=== PATIENT | male | born 1960 | race Caucasian/White ===

== ENCOUNTER → 2019-02-11 | Outpatient (CLI) | payer BC ==
--- NOTE | 2019-02-11 17:21 | MR ---
EXAMINATION TYPE: MR lumbar spine wo con DATE OF EXAM: 02/11/2019 COMPARISON: None HISTORY: LBP, rt leg numbness x 1 mo, no trauma CONTRAST: 0 mL intravenous Gadavist. TECHNIQUE: Multiplanar, multisequence images of the lumbar spine were acquired. FINDINGS: There is mild narrowing of the L2-3 through L4-5 discs heights. Disc hydration levels are diminished. L5-S1: No significant disc bulge or disc herniation. No spinal canal stenosis. No foraminal stenosi s. L4-L5: Minimal disc bulge with anterior thecal sac flattening. No AP spinal canal stenosis present. N eural foramen are patent. No spinal canal stenosis. L3-L4: Mild subligamentous disc herniation may be present. This has mild anterior thecal sac flatteni ng. No AP spinal canal stenosis is present. Mild facet hypertrophy is present. Neural foramen are pat ent. L2-L3: Minimal disc bulge may be present. There is mild facet hypertrophy with ligamentum flavum laxi ty which has posterior lateral thecal sac compression. No spinal canal stenosis or neural foraminal s tenosis is evident. L1-L2: No significant disc bulge or disc herniation. No spinal canal stenosis. No foraminal stenosi s. T12-L1: No significant disc bulge or disc herniation. No spinal canal stenosis. No foraminal stenos is. IMPRESSION: 1. Mild disc bulging present L2-3 through L4-5 with mild anterior thecal sac contact and flattening. No spinal canal stenosis is present. 2. Mild degenerative disc changes L2-3 through L4-5 mild disc desiccation.
== END | disposition home or self-care (01) ==
LOC: RADMRIMAIN 11:39
PROVIDERS: ATTEND Orthopaedic Surgery
DX: M51.26 Other intervertebral disc displacement, lumbar region (principal); M47.816 Spondylosis without myelopathy or radiculopathy, lumbar region
CPT/HCPCS: 72148

== ENCOUNTER → 2019-02-20 | Outpatient (CLI) | payer BC ==
[2019-02-20 11:38] VITALS: BP 137/89; PULSE 66; RESP 16
--- NOTE | 2019-02-20 11:50 | P.PAINCN ---
History of Present Illness - Reason for Consult Consult date: 02/20/19 Requesting physician: Venkata Obrien - History of Present Illness Her bicycle is a relatively healthy 58-year-old who presents her clinic as a referral from Dr. Obrien, for right low back pain radiating down his leg to his right foot. He states that this pain began 2 months ago, without any initiating event, he woke up and he had this pain, the pain is worsening since then. The pain starts in the right low buttock radiating down across the knee to the top of the right foot. He does have numbness on the bottom of the right foot. He denies any weakness or bowel or bladder dysfunction. When he had the pain he went and saw his regular physician Dr. Haines, who is prescribing [place] for him. Dr. Haines did try an IM steroid injection, which is not help his pain. He was then referred to Dr. Obrien, who also attempted a steroid injection, which did not help his pain. Because of this significant debility this pain is causing him, including lack of sleep and decrease appetite, he was referred to our clinic. He is looking for interventions, that could potentially help his pain. His only pain procedures were steroid injections. He has not had any pain related surgeries. He is currently working as a industrial truck mechanic. He denies any drug use, he denies any history of emotional or physical trauma. Past Medical History History of Any Multi-Drug Resistant Organisms: None Reported Smoking Status: Current every day smoker Past Alcohol Use History: None Reported Medications and Allergies Home Medications Medication Instructions Recorded Confirmed Type Atorvastatin [Lipitor] 1 tab PO HS 02/20/19 02/20/19 History HYDROcodone/APAP 5-325MG [[place] 1 tab PO Q6HR PRN 02/20/19 02/20/19 History 5-325] Allergies Allergy/AdvReac Type Severity Reaction Status Date / Time No Known Allergies Allergy Verified 02/20/19 11:16 Physical Exam Vitals: Vital Signs Pulse Resp BP Pulse Ox 02/20/19 11:24 66 16 137/89 96 Intake and Output 02/19/19 02/20/19 02/20/19 22:59 06:59 14:59 Other: Weight 68.946 kg Vital Signs: Reviewed in EMR GENERAL: Well appearing, in no acute distress, PSYCH: Mood and affect is appropriate. Awake, alert, and oriented SKIN: Skin color, texture, turgor normal, no rashes or lesions HEENT: Normocephalic, atraumatic. EOM intact CV: No pedal edema RESP: Respirations are unlabored, no audible wheezing GI: Abdomen non-distended MUSCULOSKELETAL: Bilateral upper and lower extremity strength is normal and symmetric. No atrophy or tone abnormalities are noted. Lumbar spine: Lumbar paraspinal muscles were not tender. Straight leg test was positive for leg pain. Buttocks: He did have positive for finger sign. Araceli's, Gaenslen's, Taty tests were positive, this causes pain from the right buttock down to the knee, did not cause any pain below the knee. Extremities: Peripheral joint ROM is full and pain free without obvious instability or laxity in all four extremities. No edema or skin discolorations noted. Gait: Gait is anantalgic NEUR: No loss of sensation is noted. Cranial nerves are grossly intact. Results Results: His lumbar MRI was reviewed, which is in her chart. It was relatively unremarkable fall, he does have mild disc bulge at L3-L4 and L4-L5. However there is no significant spinal canal stenosis or neuroforaminal stenosis. Please see chart for full report. Assessment and Plan Assessment: Assessment: 1. Possible lumbar radicular pain, especially in the light of pain radiating down his leg all the way to his foot 2. Right SI joint dysfunction Plan: 1. Explanation: I explained to him that his lumbar MRI was relatively benign, would be consistent for somebody his age. However her symptoms his symptoms does fit the picture of lumbar radicular pain. I also explained to him, part of his pain may be coming from the SI joint, especially with the positive provocative maneuvers. 2. Opioid agreement: None 3. Counseling: The patient was encouraged to stay active 4. Procedures: L4-L5 right paramedian epidural steroid injection, if this is not help would consider right SI joint injection 5. Consultations: None 6. Investigations: By MRI reviewed 7. Medications: He is written for [place] by his primary care physician which is not helping his pain I did discuss gabapentin with the patient, however as he is a industrial truck mechanic I would try modalities which would not make him sedated prior to starting him on gabapentin. 8. Disposition: For his procedure , PQRS Measure Charge Sheet Measure #226: Tobacco Use: Screen & Cessation Intervention: Pt screened for tobacco use AND intervention given Measure #111: Pneumonia Vaccination: Pneumococcal vaccine NOT administered or previously given Measure #47: Advance Care Plan: Advance care planning discussed & documented, pt chose/unable to give Measure #131: Pain Assessment & Follow-up: Pain positive & plan documented, Follow-up scheduled Measure #431: Unhealthy Alcohol Use Preventative Care & Scrn: Patient not identified as an unhealthy alcohol user PQRS Narrative: Smoking Status Current every day smoker Blood Pressure 137/89 Pain Intensity [Right Lateral 10 Leg] Scale Used Numeric (1 - 10) Hx Alcohol Use (MH) No Home Medications: Ambulatory Orders Atorvastatin [Lipitor] 1 tab PO HS 02/20/19 HYDROcodone/APAP 5-325MG [[place] 5-325] 1 tab PO Q6HR PRN 02/20/19
== END | disposition home or self-care (01) ==
LOC: PNWHC3 10:44
PROVIDERS: ATTEND Student in an Organized Health Care Education/Training Program
DX: M53.3 Sacrococcygeal disorders, not elsewhere classified (principal); F17.200 Nicotine dependence, unspecified, uncomplicated; R20.0 Anesthesia of skin; Z79.899 Other long term (current) drug therapy
CPT/HCPCS: 99211

== ENCOUNTER 2019-03-05 05:59 | Day surgery (SDC) | payer BC ==
[2019-03-03 12:06] VITALS: BMI 26.6
[~2019-03-05 05:59] MED LIST: LACTATED RINGERS 1,000 ML IV SCH
[2019-03-05 06:17] VITALS: RESP 18; TEMP 97.8
[2019-03-05] MEDS ORDERED: LACTATED RINGERS 1,000 ML IV ONE (06:23)
[2019-03-05] MEDS ORDERED: LIDOCAINE 1% 20 ML VIAL (10MG/ML) FOR IV START INTRADERMA ONE (06:23)
--- NOTE | 2019-03-05 07:14 | P.PCN ---
Date of Procedure: 03/05/19 Procedure(s) Performed: PREOPERATIVE DIAGNOSIS: 1- Lumbar radiculopathy 2-right sacroiliitis POSTOPERATIVE DIAGNOSIS: 1-Lumber radiculopathy 2-right sacroiliitis PROCEDURE 1. Lumbar epidural steroid injection under fluoroscopic guidance at the L5-S1 level. (Right Paramedian ) (Fluoroscopy imaging was available in radiology department) 2. Lumbar epidurogram. ANESTHESIA: Local with 1% lidocaine 3 ml and , moderate sedation with intravenous Versed 2 mg ,and fentanyle 50 Mcg EBL: Minimal PROCEDURE INDICATION: The patient with low back pain and radiculitis symptoms unresponsive to conservative treatment. Fluoroscopy was used to optimize visualization of the needle placement and to maximize safety. PROCEDURE DESCRIPTION / TECHNIQUE: The patient was seen and identified in the preoperative area. Risks, benefits, complications including but not limited to infections ,bleeding ,allergic reaction to the medications ,nerve damage and not complete pain releife , and alternatives were discussed with the patient. The patient agreed to proceed with the procedure and signed the consent. IV was started, and vital signs were stable. Patient was taken to the OR and time out was completed. The patient was placed in the prone position on procedure table and a pillow was placed under the abdomen to reduce lumbar lordosis. The lumbosacral area was prepped and draped in the usual sterile fashion.ere closely monitored during the procedure. Conscious sedation was used during the procedure to decrease patients anxiety. Vital signs was monitered during the entire procedure. Using anterior-posterior fluoroscopy, the L5-S1 interlaminar space was identified and the skin over this site was marked and then infiltrated with 1% lidocaine subcutaneously. Subsequently, a 20-gauge Tuohy epidural needle was inserted and advanced toward the epidural space using the ``Loss of resistance technique and guided by AP and lateral fluoroscopy. The correct needle position in the epidural space was verified with the injection of 2 mL of the water soluble contrast dye Isovue 200 contrast and observing an excellent epidurogram with the epidural spread of the dye, after negative aspiration for blood and CSF and in the absence of paresthesias. Again after negative aspiration, a 6 ml mixture containing 80 mg of Depo-medrol , and 2 ml of preservative free Normal Saline, and 2 ml of preservative free lidocaine 1% solution was injected and a washout of epidurogram was seen. Needle was withdrawn intact, skin was cleansed, and bandages were applied. COMPLICATIONS: None DISPOSITION / PLANS: The patient was placed in a supine position and transferred to the recovery area in a stable condition for observation. There was no evidence of lower extremity motor or sensory deficit after the procedure. Patient was discharged from the recovery room after meeting discharge criteria. Home discharge instructions were given to the patient by the staff. The patient was reexamined prior to discharge. The patient will schedule a follow up in the clinic in 2-4 weeks. Note= the plan was to do L4- 5 lumbar epidural steroid injection but the L4 5 level was technically difficult Doxycin significantly too long spinous process.
[2019-03-05] MEDS ORDERED: IV FLUID CONTINUATION 750 ML IV ONE (07:16)
[2019-03-05 07:35] VITALS: BP 117/79; PULSE 68
--- NOTE | 2019-03-05 13:14 | FL ---
Fluoroscopy HISTORY: Pain 1 seconds fluoroscopy time supplied to the referring clinician. 1 intraoperative C-arm images docume nt the procedure. See dictated report from anesthesia.
== END 2019-03-05 07:46 | disposition home or self-care (01) ==
LOC: ORPAIN 05:59
PROVIDERS: ATTEND Specialist
DX: M54.16 Radiculopathy, lumbar region (principal); M46.1 Sacroiliitis, not elsewhere classified
CPT/HCPCS: 62323; J2250; J1030; J3010

== ENCOUNTER 2019-03-19 09:46 | Day surgery (SDC) | payer BC ==
[2019-03-18 09:09] VITALS: BMI 24.3
[2019-03-19 10:14] VITALS: TEMP 97.3
[2019-03-19] MEDS ORDERED: LIDOCAINE 1% 20 ML VIAL (10MG/ML) FOR IV START INTRADERMA ONE (10:16)
--- NOTE | 2019-03-19 11:14 | P.PCN ---
Date of Procedure: 03/19/19 Procedure(s) Performed: PREOPERATIVE DIAGNOSIS: Lumbar radicular pain POSTOPERATIVE DIAGNOSIS: Same PROCEDURE Lumbar epidural steroid injection under fluoroscopic guidance at the L4-L5 level. ANESTHESIA: Local with 1% lidocaine 3 ml; moderate sedation with 2 mg of Versed and 50 g of fentanyl EBL: Minimal PROCEDURE INDICATION: By radicular pain. PROCEDURE DESCRIPTION / TECHNIQUE: The patient was seen and identified in the preoperative area. Risks, benefits, complications including but not limited to infections ,bleeding ,allergic reaction to the medications ,nerve damage and not complete pain relief , and alternatives were discussed with the patient. The patient agreed to proceed with the procedure and signed the consent. IV was started, and vital signs were stable. Patient was taken to the OR and time out was completed. The patient was placed in the prone position on procedure table and a pillow was placed under the abdomen to reduce lumbar lordosis. The lumbosacral area was prepped and draped in the usual sterile fashion. The patient was closely monitored during the procedure. Conscious sedation was used during the procedure to decrease patients anxiety. Vital signs was monitored during the entire procedure. Using anterior-posterior fluoroscopy, the L4-L5 interlaminar space was identified and the skin over this site was marked and then infiltrated with 1% lidocaine subcutaneously. Subsequently, a 20-gauge Tuohy epidural needle was inserted and advanced toward the epidural space using the loss of resistance technique and guided by AP and lateral fluoroscopy. The correct needle position in the epidural space was verified. After negative aspiration, a 5 mL solution containing 80 mg of Depo-Medrol, 2 ml of 1% lidocaine preservative-free, 2 mL of normal saline preservative-free was injected. The needle was withdrawn intact, skin was cleansed, and bandages were applied. Images were saved to the chart. COMPLICATIONS: None COMMENTS: L4-L5 space was difficult to access likely due to calcification of ligamentum flavum DISPOSITION / PLANS: The patient was returned to the supine position and transferred to the recovery area in a stable condition for observation. There was no evidence of lower extremity motor or sensory deficit after the procedure. Patient was discharged from the recovery room after meeting discharge criteria. Home discharge instructions were given to the patient by the staff. Follow up plan: In clinic
[2019-03-19] MEDS ORDERED: IV FLUID CONTINUATION 1,000 ML IV ONE ×2 (11:21)
[2019-03-19 11:25] VITALS: RESP 16
[2019-03-19 11:41] VITALS: BP 114/76; PULSE 57
--- NOTE | 2019-03-19 13:00 | FL ---
Fluoroscopy HISTORY: Pain 5 seconds fluoroscopy time supplied to the referring clinician. 3 intraoperative C-arm images docume nt the procedure. See dictated report from anesthesia.
== END 2019-03-19 11:51 | disposition home or self-care (01) ==
LOC: ORPAIN 09:46
PROVIDERS: ATTEND Student in an Organized Health Care Education/Training Program
DX: M51.16 Intervertebral disc disorders with radiculopathy, lumbar region (principal); F17.200 Nicotine dependence, unspecified, uncomplicated; Z79.899 Other long term (current) drug therapy
CPT/HCPCS: 62323; J2250; J1030; J3010; Q9966

== ENCOUNTER → 2019-04-08 | Outpatient (CLI) | payer BC ==
[2019-04-08 11:35] VITALS: BP 118/77; PULSE 69; RESP 18
--- NOTE | 2019-04-09 14:08 | P.PAINPG ---
Subjective Progress Note Date: 04/08/19 This is a follow-up visit for this 58 years old male with a few month history of severe low back pain with radiation to the lower extremity, patient diagnosed with lumbar radiculitis and lumbar degenerative disc disease and lumbar spondylosis with lumbar facet arthropathy, status post lumbar epidural steroid injection x2 he had minimal benefit from the epidural steroid injection, his pain mainly in the low back area with occasional radiation to the right leg, he denies any motor or sensory deficit he denies any fever or night sweats, and no change in the bowel movement or urination Objective - Vital Signs Vital signs: Vital Signs Temp Pulse 69 04/08/19 11:24 Resp 18 04/08/19 11:24 BP 118/77 04/08/19 11:24 Pulse Ox 97 04/08/19 11:24 - Exam Physical Examinations : -Constitutiona : Cooperative , not in acute distress . -HEENT : nech : supple , no Lymphadenopathy , normal thyroid size . : eyes : no ptosis , no icterus, no photophobia . - neurologic : Cranial nerve II to XII intact , no focal neurological deffecit . -psychatric : alert , oriented X 3 , appropriate affect , intact judgment and insight . -Lymphatic : no Lymphadenopathy . - musculoskeltal : Lumber spine moter stegnth lower extremities ,thigh and legs 3-4/5 Right side , 5/5 Left side deep tendon reflexes : normal Knee Jerk , normal ankle Jerk lumber facet Loading Test =positive Right , positive Left Range of motion of the lumbar spine Flexion 30 degrees, extension 10 degrees strait leg raising test = positive at 60 degree on the right side and is negative on the left side Fabere test= positive Right , and negative LT . NO tenderness over the Sacroiliac joint on the Right , and no tendernes on Left sides MRI of the lumbar spine L2-3 and C4 facet hypertrophy and L4 5 bulging disc, normal disc at L5-S1 Assessment and Plan Plan: Assessment and plan= lumbar radiculopathy, lumbar degenerative disc disease, lum bar spondylosis with lumbar facet arthropathy Patient had no benefit from lumbar epidural steroid injections 2 Patient could benefit from diagnostic medial branch block , and she has good result and we will proceed with the RFA He will be scheduled to have diagnostic medial branch block lumbar area L1,L2 ,L3, L4 (to block facet at L2-3,L3-4,L4-5 ) Time with Patient: Less than 30 PQRS Measure Charge Sheet Measure #130: Documentation of Current Meds in Medical Chart: Patient's medications documented in chart Measure #226: Tobacco Use: Screen & Cessation Intervention: Pt screened for tobacco use AND intervention given Measure #111: Pneumonia Vaccination: Pneumococcal vaccine NOT administered or previously given Measure #47: Advance Care Plan: Advance care planning discussed & documented, pt chose/unable to give Measure #412: Opioid Treatment Agreement: No documentation of signed opioid treatment agreement Measure #408: Opioid Therapy Follow-up Evaluation: Patient had NO f/u eval minimum every 3 months during opioid therapy Measure #317: Preventitive Care & Scrn High Bld Press & F/U: Normal blood pressure, f/u not required Measure #128: Body Mass Index (BMI) Screening & Follow-up: BMI documented within normal parameters Measure #131: Pain Assessment & Follow-up: Pain positive & plan documented, Follow-up scheduled Measure #431: Unhealthy Alcohol Use Preventative Care & Scrn: Patient not identified as an unhealthy alcohol user PQRS Narrative: Smoking Status Current every day smoker Blood Pressure 118/77 Pain Intensity [Right Leg] 9 Pain Intensity [Lower Back] 9 Scale Used Numeric (1 - 10) Hx Alcohol Use (MH) No Home Medications: Ambulatory Orders Atorvastatin [Lipitor] 80 mg PO HS 02/20/19 Aspirin/Acetaminophen/Caffeine [Excedrin Extra Strength Caplet] 3 each PO DIRECTED PRN 04/03/19 Hydrocodone/Acetaminophen [Hydrocodone-Acetamin 5-300 mg] 1 tab PO Q4HR PRN 04/08/19 Controlled Substance Measures - Controlled Substance Measures Is patient prescribed a controlled substance at discharge?: No
== END | disposition home or self-care (01) ==
LOC: PNWHC3 11:01
PROVIDERS: ATTEND Specialist
DX: M51.16 Intervertebral disc disorders with radiculopathy, lumbar region (principal); M47.26 Other spondylosis with radiculopathy, lumbar region; M46.96 Unspecified inflammatory spondylopathy, lumbar region; F17.200 Nicotine dependence, unspecified, uncomplicated; Z79.82 Long term (current) use of aspirin; Z79.891 Long term (current) use of opiate analgesic; Z79.899 Other long term (current) drug therapy
CPT/HCPCS: 99211

== ENCOUNTER 2019-04-23 05:58 | Day surgery (SDC) | payer BC ==
[2019-04-22 09:59] VITALS: BMI 27.4
[2019-04-23] MEDS ORDERED: LIDOCAINE 1% 20 ML VIAL (10MG/ML) FOR IV START INTRADERMA ONE (06:20)
[2019-04-23 06:42] VITALS: TEMP 97.8
--- NOTE | 2019-04-23 07:21 | P.PCN ---
Date of Procedure: 04/23/19 Procedure(s) Performed: PREOPERATIVE DIAGNOSIS : 1- Lumbar spondylosis with Facet Arthropathy without myelopathy . 2- Lumber degenerative disc disease POSTOPERATIVE DIAGNOSIS: 1- Lumbar spondylosis with Facet Arthropathy without myelopathy . 2- Lumber degenerative disc disease PROCEDURE: Diagnostic bilateral L1 ,L2 , L3 , L4 , medial branch block under fluoroscopy guidance(fluoroscopy images available in the radiology Department ) ( To target the facet joint between L2-3 , L3-4 ,L4-5 , ) ANESTHESIA: Local with Ropivacain 0.5 % 6 ml , moderate sedation with intravenous Versed 2 mg and Fentanyl 50 mcg. EBL: Minimal COMPLICATION: None. IV FLUIDS: 100 mL of normal saline. PROCEDURE INDICATION: Chronic low back pain secondary to Facet arthropathy unresponsive to conservative treatment. PROCEDURE DESCRIPTION: the patient was seen and identified in the preop holding area , risks and benefits and possible complications of the procedure and alternative were discussed with the patient, and the patient agreed to proceed with the procedure and signed the consent IV was started and vital signs monitored during the procedure and fluoroscopy was used to maximize the benefit and accuracy of the needle placement, and sedation was given to decrease patient anxiety, patient was taken to the procedure room and placed in prone position vital signs monitored in the back prepped with chlorhexidine X3 then under strict sterile technique using a right oblique fluoroscopy ,the junction of the transverse process and the superior articulating process of the right L1 ,L2 ,L3 , L4 , vertebra which corresponding to the fluoroscopy image of the eye of the Zach dog on the block side for the medial branches and subsequently , after local infiltration of skin and subcu tissuies with Ropivacaine 0.5 % , one mL at each level ,then 22-gauge Quincke-type needles , 4 needle was used , each one of them placed at the junction of the base of the transverse process and the superior articular process at the appropriate level, and the needle was advanced until the periosteum contacted, needle placement confirmed with AP oblique and lateral view and after appropriate needle placement confirmed, and after negative aspiration for heme and CSF and there was no paresthesia 2 mL of Ropivacaine 0.5% mixed with 20 mg Depo-Medrol , then half mL injected at each level after negative aspiration the needle subsequently removed and the same procedure repeated for the left side at left side at L1, L2 , L3 , L4 levels. At the end of the procedure and the needles removed and a bandage applied after the skin was cleaned the cleaning solution patient taken to recovery room in stable condition and monitors in the recovery room for 20-30 minutes and discharged home in stable condition after discharge criteria met and patient will follow up with the pain clinic in 2-4 weeks
[2019-04-23] MEDS ORDERED: IV FLUID CONTINUATION 1,000 ML IV ONE ×2 (07:23)
[2019-04-23 07:46] VITALS: BP 112/80; PULSE 61; RESP 18
--- NOTE | 2019-04-23 08:57 | FL ---
EXAMINATION TYPE: FL guided pain mgmt statistic DATE OF EXAM: 04/23/2019 CLINICAL HISTORY: Low back pain. TECHNIQUE: Fluoroscopy. COMPARISON: None. FINDINGS: Fluoroscopic guidance was provided during pain relief procedure performed by Dr. Henning . A total of 12 seconds of fluoroscopic time was utilized during the procedure and 4 spot images are acquired. Images acquired shows needle localization of the lumbar spine at multiple levels. IMPRESSION: As Above.
== END 2019-04-23 07:53 | disposition home or self-care (01) ==
LOC: ORPAIN 05:58
PROVIDERS: ATTEND Specialist
DX: G89.29 Other chronic pain (principal); M47.26 Other spondylosis with radiculopathy, lumbar region; M51.16 Intervertebral disc disorders with radiculopathy, lumbar region
CPT/HCPCS: 64493; 64494; 64495; J2250; J1030; J3010; 99152

== ENCOUNTER → 2021-04-05 | Outpatient (CLI) | payer BC ==
--- NOTE | 2021-04-05 08:52 | MR ---
MRI CERVICAL SPINE: CLINICAL HISTORY: Nerve injury with neck pain. TECHNIQUE: Multiplanar, multisequence imaging of the cervical spine is performed without IV contrast. COMPARISON: None. FINDINGS: Sagittal images of the cervical spine show the craniocervical junction to appear within nor mal limits. The cervical and upper thoracic spinal cord is normal in caliber and signal. Slight or s ubtle grade 1 retrolisthesis C6 on C7. Mild disc space narrowing C5-C6 level. Moderate disc space chicho rowing C6-C7 level. [id number]-gu-eavjnxup spurring at these levels. The vertebral body heights are normal. The bone marrow signal intensity is within normal limits. Axial images show C2-C3 level to appear within normal limits. Axial images at C3-C4 level show mild facet degenerative changes bilaterally causing mild bilateral n eural foraminal narrowing. Axial images at C4-C5 levels are broad-based posterior disc protrusion mildly facing anterior thecal sac and causing mild bilateral neural foraminal narrowing. Axial images at C5-C6 level show more prominent focal central disc protrusion effacing anterior theca l sac up to ventral cervical spinal cord with mild bilateral neural foraminal narrowing. Axial images at C6-C7 level show spondylolisthesis with posterior spur disc complex effacing anterior thecal sac and causing moderate bilateral neural foraminal narrowing. Axial images at C7-T1 level appear within normal limits IMPRESSION: Multilevel degenerative changes in the cervical spine greatest at C5-C6 and C6-C7 levels as detailed above.
== END | disposition home or self-care (01) ==
LOC: RADMRIMAIN 08:08
PROVIDERS: ATTEND Psychiatry & Neurology Neurology
DX: S14.9XXA Injury of unspecified nerves of neck, initial encounter (principal); M50.222 Other cervical disc displacement at C5-C6 level; M47.812 Spondylosis without myelopathy or radiculopathy, cervical region; M43.12 Spondylolisthesis, cervical region
CPT/HCPCS: 72141

== ENCOUNTER → 2022-05-08 | Outpatient (CLI) | payer BC ==
--- NOTE | 2022-05-08 17:49 | CT ---
EXAMINATION TYPE: CT brain wo con CT DLP: 1141.9 mGycm, Automated exposure control for dose reduction was used. DATE OF EXAM: 05/08/2022 5:09 PM COMPARISON: 01/01/2022., MR brain 01/02/2022. CLINICAL INDICATION:Male, 61 years old with history of R51.9, Headaches for about a month TECHNIQUE: Brain: Axial CT images of the brain were obtained with coronal and sagittal reformats created and rev iewed. Contrast used: None. Oral contrast used: None. FINDINGS: Brain: Extra-axial spaces: No abnormal extra-axial fluid collections. Ventricular system: Within normal limits Cerebral parenchyma: Remote left cutler radiata white matter changes as seen on prior MRI. No acute i ntraparenchymal hemorrhage or mass effect. The smallwood-white junction is well differentiated. Scattered hypoattenuating areas are seen within the white matter. Cerebellum: Unremarkable. Mass effect: No evidence of midline shift. Intracranial vasculature: Atherosclerotic calcifications of the intracranial vessels. Soft tissues: Normal. Calvarium/osseous structures: No depressed skull fracture. Paranasal sinuses and mastoid air cells: Mild scattered paranasal sinus disease. Visualized orbits: Orbital contents are intact. IMPRESSION: 1. Remote injury to the left cutler radiata as seen on prior MRI. No acute/subacute CVA identified. 2. Nonspecific white matter changes, likely secondary to chronic small vessel ischemic disease.
== END | disposition home or self-care (01) ==
LOC: RADCTMAIN 16:50
PROVIDERS: ATTEND Family Medicine
DX: R90.82 White matter disease, unspecified (principal); I67.82 Cerebral ischemia; R51.9 Headache, unspecified
CPT/HCPCS: 70450

== ENCOUNTER → 2022-08-07 | Outpatient (CLI) | payer OTHER ==
[2022-08-07 20:49] LABS: ALT 29 U/L (10-49); AST 30 U/L (14-35); Chol/HDL Ratio 5.49 Ratio; LDL Cholesterol,Calculated 147.5 mg/dL (0.0-131.0)
== END | disposition home or self-care (01) ==
LOC: LABWHC1 09:34
PROVIDERS: ATTEND Nurse Practitioner Acute Care
DX: E78.2 Mixed hyperlipidemia (principal)
CPT/HCPCS: 36415; 80061; 84450; 84460

== ENCOUNTER → 2022-10-25 | Day surgery (SDC) | payer OTHER ==
[~2022-10-25] MED LIST changes: +ALPRAZolam 0.25 MG TAB PO PRN; +ALPRAZolam 0.5 MG TAB PO PRN; +ASPIRIN 325 MG TAB PO STA; +ATORVASTATIN 80 MG TAB PO STA; +HEPARIN SODIUM 1,000 UN/ML (10ML VL) IVP ONE; +HEPARIN SODIUM 1,000 UN/ML (10ML VL) ONE; +HEPARIN SODIUM,PORCINE 10,000 UNIT in SODIUM CHLORIDE 0.9% 1,000 ML IRRIGATION PRN; +HEPARIN SODIUM,PORCINE 2,500 UNIT in SODIUM CHLORIDE 0.9% 250 ML IRRIGATION PRN; +IOPAMIDOL-370 100ML BTL INJ ONE; -LACTATED RINGERS 1,000 ML IV SCH; +LIDOCAINE 1% INJ 10MG/ML (5 ML VIAL-PF) SQ ONE; +MIDAZOLAM 2 MG/2 ML VIAL IVP ONE; +NITROGLYCERIN SL TABS 0.4 MG TAB SUBLINGUAL PRN; +SODIUM CHLORIDE 0.9% 1,000 ML IV ONE; +SODIUM CHLORIDE 0.9% 1,000 ML in EMPTY BAG 1 BAG IV SCH; +VERAPAMIL 2.5 MG/ML 2 ML AMP ONE; +VERAPAMIL SYRINGE (5 MG/10 ML) INTRAARTER ONE; +fentaNYL (PF) 50 MCG/ML 2 ML AMP IVP ONE; +fentaNYL (PF) 50 MCG/ML 2 ML AMP ONE
[2022-10-25 12:02] VITALS: RESP 16; TEMP 96.5
[2022-10-25 12:08] LABS: Basophils # (A) 0.1 k/uL (0-0.2); Basophils % (A) 1 %; Eosinophils # (A) 0.3 k/uL (0-0.7); Eosinophils % (A) 3 %; HCT 45.7 % (39.0-53.0); Lymphocytes # (A) 1.7 k/uL (1.0-4.8); Lymphocytes % (A) 16 %; MCHC 32.8 g/dL (31.0-37.0); MCV 91.6 fL (80.0-100.0); Mean Platelet Volume 10.2; Monocytes # (A) 0.6 k/uL (0-1.0); Monocytes % (A) 5 %; Neutrophils # (A) 8.2 k/uL (1.3-7.7); Neutrophils % (A) 74 %; Platelet Count 269 k/uL (150-450); RBC 4.99 m/uL (4.30-5.90); RDW 14.4 % (11.5-15.5)
[2022-10-25 12:30] LABS: African American GFR (CKD) >90 (>60 ml/min/1.73 sqM); Anion Gap 9 mmol/L; Blood Urea Nitrogen 15 mg/dL (9-20); Calcium 9.2 mg/dL (8.4-10.2); Carbon Dioxide 25 mmol/L (22-30); Chloride 103 mmol/L (98-107); Glucose 99 mg/dL (74-99); Non-African American GFR(CKD) >90 (>60 ml/min/1.73 sqM); Potassium 4.4 mmol/L (3.5-5.1); Sodium 137 mmol/L (137-145)
--- NOTE | 2022-10-25 15:24 | P.CARDCATH ---
Description of Procedure: PROCEDURES PERFORMED: Left heart catheterization, bilateral coronary angiography INDICATION: Abnormal stress test CONSENT:I have discussed the risks, benefits and alternative therapies for the above-mentioned procedure and for both sedation/analgesia as well as necessary blood product administration, if indicated, as they pertain to this patient. The patient has indicated understanding and acceptance of the risks and procedures discussed. PROCEDURE: After the risks, benefits and alternatives of the above mentioned procedure explained in detail with the patient, informed consent was obtained. Patient was taken to the catheterization lab and prepped and draped in usual fashion. 1% lidocaine was used to anesthetize the right radial artery. A 6- Chadian sheath was placed in the right radial artery using modified Seldinger technique. Left coronary angiography was performed with a 5-Chadian JL 3.5 catheter and right coronary angiography was performed with a 5-Chadian JR5 catheter in various views. A 5-Chadian FR5 catheter was inserted into the left ventricle and pressure measurements were obtained. The decision was made to perform iFR of the LAD. A 6-Chadian CLS 3.5 guide was used engage the left main. Heparin was given. A 0.014 pressure wire was advanced in the proximal left main. It was then advanced 1 cm distal to the mid LAD lesion and iFR was abnormal at 0.85. There is no drift with pullback. The right radial sheath was removed and a TR band was placed with hemostasis achieved. The patient tolerated the procedure well. Patient was transported back to the post catheterization holding area in stable condition. Conscious Sedation: Patient was monitored under the direct supervision of myself for conscious sedation using Versed and fentanyl for a total duration of 28 minutes HEMODYNAMICS: Aorta: 137/72 LV: 134/5, LVEDP 11 SELECTIVE CORONARY ARTERIOGRAPHY: LEFT MAIN: The left main is a large caliber vessel which bifurcates into the LAD and circumflex. There is no significant stenosis. LEFT ANTERIOR DESCENDING CORONARY ARTERY: LAD is a large caliber vessel which wraps around to the apex. There is a proximal LAD 50% stenosis followed by a mid LAD long 50-60% stenosis. Otherwise the mid to apical LAD is normal. LEFT CIRCUMFLEX CORONARY ARTERY: Left circumflex is a large caliber vessel diffuse proximal 30-40% stenosis followed by tandem 80% and then 90% proximal circumflex stenosis. OM1 is 100% occluded at the origin. Just after OM 2, the circumflex is 100% occluded giving off a dominant PDA and small caliber OM 3. RIGHT CORONARY ARTERY: The right coronary artery is a small caliber vessel which gives off and acute marginal and is nondominant. There is a proximal 99% RCA s tenosis. FINAL IMPRESSION: 1. Severe CAD as described above including proximal LAD 50%, mid LAD 50-60%, dominant proximal circumflex 80%, 90% and 100% mid circumflex, 100% ostial OM1 stenosis, nondominant RCA 99% 2. iFR LAD abnormal at 0.85 3. Normal left sided filling pressures PLAN: 1. Aggressive risk factor modification per most recent ACC/AHA guidelines. 2. Given multivessel CAD and abnormal iFR of LAD recommend evaluation for bypass surgery. If felt to be higher risk, would recommend stenting of the circumflex and treat OM1, distal circumflex as well as likely LAD medically.
[2022-10-25 16:45] LABS: ALT 24 U/L (4-49); AST 27 U/L (17-59); African American GFR (CKD) >90 (>60 ml/min/1.73 sqM); Albumin 4.1 g/dL (3.5-5.0); Alkaline Phosphatase 92 U/L (38-126); Anion Gap 11 mmol/L; Blood Urea Nitrogen 15 mg/dL (9-20); Calcium 9.2 mg/dL (8.4-10.2); Carbon Dioxide 22 mmol/L (22-30); Chloride 104 mmol/L (98-107); Glucose 98 mg/dL (74-99); Magnesium 2.2 mg/dL (1.6-2.3); Non-African American GFR(CKD) >90 (>60 ml/min/1.73 sqM); Potassium 4.5 mmol/L (3.5-5.1); Sodium 137 mmol/L (137-145); Total Bilirubin 2.2 mg/dL (0.2-1.3); Total Protein 7.4 g/dL (6.3-8.2)
--- NOTE | 2022-10-25 17:38 | US ---
EXAMINATION TYPE: US carotid duplex BILAT DATE OF EXAM: 10/25/2022 COMPARISON: CTa 01/01/22 CLINICAL INDICATION: Male, 62 years old with history of PreOp Cardiac Surgery; TECHNIQUE: Carotid duplex ultrasound examination. Indirect Doppler criteria was utilized. FINDINGS: EXAM MEASUREMENTS: RIGHT: Peak Systolic Velocity (PSV) cm/sec ----- Right CCA: 61.9 ----- Right ICA: 77.9 ----- Right ECA: 60.5 ICA/CCA ratio: 1.3 RIGHT: End Diastole cm/sec ----- Right CCA: 22.7 ----- Right ICA: 35.7 ----- Right ECA: 11.0 LEFT: Peak Systolic Velocity (PSV) cm/sec ----- Left CCA: 52.4 ----- Left ICA: 73.5 ----- Left ECA: 72.2 ICA/CCA ratio: 1.4 LEFT: End Diastole cm/sec ----- Left CCA: 19.3 ----- Left ICA: 32.5 ----- Left ECA: 12.7 VERTEBRALS (direction of flow): Right Vertebral: Antegrade Left Vertebral: Antegrade Rhythm: Normal PUTTY PATCHER NOTES: No elevated velocities. Plaque seen within bilateral bulbs. IMPRESSION: Less than 50% stenosis of the bilateral carotid bifurcations. Criteria for Assigning % of Stenosis / Diameter reduction (Estimation based on the indirect measurements of the internal carotid artery velocities (ICA PSV). 1. Normal (no stenosis)=ICA PSV < 125 cm/s: ratio < 2.0: ICA EDV<40 cm/s. 2. Less than 50% stenosis=ICA PSV < 125 cm/s: ratio < 2.0: ICA EDV<40 cm/s. 3. 50 to 69% stenosis=ICA PSV of 125 to 230 cm/s: ration 2.0 ? 4.0: ICA EDV 40-100 cm/s. 4. Greater than 70% stenosis to near occlusion= ICA PSV > 230 cm/s: ratio > 4.0: ICA EDV > 100 cm/s. 5. Near occlusion= ICA PSV velocities may be low or undetectable: variable ratio and ICA EDV. 6. Total occlusion=unable to detect flow.
[2022-10-25 17:48] VITALS: BP 122/83; PULSE 68
--- NOTE | 2022-10-25 17:51 | US ---
EXAMINATION TYPE: Pre-Operative Non-Invasive Evaluation of the hand for Potential Radial Artery [address], Measurements only DATE OF EXAM: 10/25/2022 5:27 PM CLINICAL INDICATION: Male, 62 years old with history of PreOp Cardiac Surgery; SIDE PERFORMED: Left TECHNIQUE: Radial artery is measured utilizing real time linear array sonography. Dominant hand: Unknown Duplex Findings: Radial Artery: Color flow seen Measurements in mm, transverse view: Left Radial: Proximal: 2.3 x 2.3 mm Mid: 2.4 x 2.1 mm Distal: 2.9 x 2.1 mm *Bifurcation of brachial artery into radial artery image not performed, unable to access area due to IV tape. IMPRESSION: Performing surgeon to determine viability as conduit.
--- NOTE | 2022-10-25 17:52 | US ---
EXAMINATION TYPE: US vein mapping BIL DATE OF EXAM: 10/25/2022 5:03 PM COMPARISON: NONE CLINICAL INDICATION: Male, 62 years old with history of PreOp Cardiac Surgery; open heart SIDE PERFORMED: Bilateral TECHNIQUE: Lower extremity saphenous vein is examined and measured utilizing real time linear array sonography. Patient History: Smoker: Yes Heart Disease: No Previous DVT: No Vascular Surgery: No Discoloration: No Hypertension: Yes Diabetes: No Paralysis: No Varicosities: No Edema: No DUPLEX FINDINGS: Greater Saphenous: Color flow seen Measurements in mm: Right Greater Saphenous: Groin: 5.6x8.0 mm High Thigh: 5.4x6.1 mm Mid Thigh: 3.5x4.7 mm Above Knee: 2.4x2.9 mm Knee: 1.4x2.1 mm Below Knee: 1.4x2.2 mm Mid Calf: 0.6x0.8 mm At Ankle: 0.3x0.5 mm Left Greater Saphenous: Groin: 2.9x3.2 mm High Thigh: 3.3x4.1 mm Mid Thigh: 1.9x2.0 mm Above Knee: 2.3x2.4 mm Knee: 1.3x1.1 mm Below Knee: 1.8x2.6 mm Mid Calf: 1.1x1.7 mm At Ankle: 0.7x1.4 mm Lower GSV has thick rosas and a small residual lumen, still compressible IMPRESSION: 1. Bilateral GSV measurements listed above. 2. Performing surgeon to determine viability as conduit.
[2022-10-25 18:00] LABS: Appearance,Urine Clear (Clear); Bilirubin,Urine Negative (Negative); Blood,Urine Negative (Negative); Color,Urine Light Yellow; Glucose,Urine (UA) Negative (Negative); Ketones,Urine Trace (Negative); Leukocyte Esterase,Urine Negative (Negative); Nitrite,Urine Negative (Negative); PH, Urine 6.5 (5.0-8.0); Protein,Urine Negative (Negative); Urobilinogen,Urine <2.0 mg/dL (<2.0)
[2022-10-25 18:36] LABS: INR 1.1 (<1.2); Partial Thromboplastin Time 28.2 sec (22.0-30.0); Prothrombin Time 11.2 sec (9.0-12.0)
--- NOTE | 2022-10-25 18:42 | CA ---
Transthoracic Echo Report Name: Khoi Lozada Age: 62 Gender: M : 1960 Exam Date: 10/25/2022 16:59 Exam Location: [place] Ht (in): 65 Wt (lb): 164 Ordering Physician: Michi Cobb Attending/Referring Phys: Reza ART Shop Director Chantell Diaz RDCS Procedure CPT: Indications: pre op cardiac surgery Cardiac Hx: Technical Quality: Good Contrast 1: Total Dose (mL): Contrast 2: Total Dose (mL): MEASUREMENTS (Male / Female) Normal Values 2D ECHO LV Diastolic Diameter PLAX 5.1 cm 4.2 - 5.9 / 3.9 - 5.3 cm LV Systolic Diameter PLAX 3.3 cm IVS Diastolic Thickness 1.2 cm 0.6 - 1.0 / 0.6 - 0.9 cm LVPW Diastolic Thickness 1.1 cm 0.6 - 1.0 / 0.6 - 0.9 cm LV Relative Wall Thickness 0.5 RV Internal Dim ED PLAX 3.0 cm LA Systolic Diameter LX 3.7 cm 3.0 - 4.0 / 2.7 - 3.8 cm LV Diastolic Volume MOD 4C 80.6 cm??? LV Systolic Volume MOD 4C 39.8 cm??? LV Ejection Fraction MOD 4C 50.6 % LV Cardiac Index MOD 4C 1465.6 cm???/min???m??? LV Diastolic Length 4C 8.6 cm LV Systolic Length 4C 7.2 cm LV Diastolic Volume MOD 2C 76.8 cm??? LV Systolic Volume MOD 2C 29.3 cm??? LV Ejection Fraction MOD 2C 61.8 % LV Cardiac Index MOD 2C 1706.7 cm???/min???m??? LV Diastolic Length 2C 8.1 cm LV Systolic Length 2C 6.7 cm LA Volume 45.9 cm??? 18 - 58 / 22 - 52 cm??? M-MODE Aortic Root Diameter MM 3.4 cm MV E Point Septal Separation 0.5 cm AV Cusp Separation MM 2.1 cm DOPPLER AV Peak Velocity 100.8 cm/s AV Peak Gradient 4.1 mmHg MV Area PHT 2.6 cm??? Mitral E Point Velocity 57.8 cm/s Mitral A Point Velocity 77.2 cm/s Mitral E to A Ratio 0.7 MV Deceleration Time 294.9 ms MV E' Velocity 6.7 cm/s Mitral E to MV E' Ratio 8.7 TR Peak Velocity 199.4 cm/s TR Peak Gradient 15.9 mmHg Right Ventricular Systolic Press 20.4 mmHg FINDINGS Left Ventricle Left ventricular ejection fraction is estimated at 55-60 %. Left ventricular cavity size normal. Mildly increased septal wall thickness. Normal left ventricular wall motion. Right Ventricle Normal right ventricular size and function. Right ventricular systolic pressure within normal limits. Right Atrium Normal right atrial size. Left Atrium Normal left atrial size. Mitral Valve Structurally normal mitral valve. Mild mitral regurgitation. Thickened mitral valve leaflets Aortic Valve Trileaflet aortic valve. No aortic valve stenosis or regurgitation. Tricuspid Valve Structurally normal tricuspid valve. mild tricuspid regurgitation. Pulmonic Valve Structurally normal pulmonic valve. Mild pulmonic regurgitation. Pericardium Normal pericardium. No pericardial effusion. Aorta Normal size aortic root and proximal ascending aorta. CONCLUSIONS 1. Normal left ventricular size and function 2. Mild mitral and tricuspid regurgitation with normal right-sided pressure Previewed by: Dr. Mai Maddox MD (Electronically Signed) Final Date: 25 October 2022 18:41
[2022-10-26 02:11] LABS: Chol/HDL Ratio 6.72 Ratio; LDL Cholesterol,Calculated 159.6 mg/dL (0.0-131.0)
--- NOTE | 2022-10-26 07:20 | XR ---
EXAMINATION TYPE: XR chest 2V DATE OF EXAM: 10/25/2022 COMPARISON: NONE TECHNIQUE: PA and lateral views submitted. HISTORY: Previa FINDINGS: The lungs are clear and there is no pneumothorax, pleural effusion, or focal pneumonia. Heart size normal and no overt failure. Osseous structures demonstrate hypertrophic and degenerative changes of the spine. Atherosclerotic change aorta. Mild hyperexpansion of lungs could represent asthma or COPD. IMPRESSION: 1. No acute process.
== END ==
LOC: CATHCVL 10:55
PROVIDERS: ATTEND Internal Medicine
DX: I25.10 Atherosclerotic heart disease of native coronary artery without angina pectoris (principal); I08.1 Rheumatic disorders of both mitral and tricuspid valves; I49.3 Ventricular premature depolarization; I10 Essential (primary) hypertension; E78.5 Hyperlipidemia, unspecified; Z86.73 Personal history of transient ischemic attack (TIA), and cerebral infarction without residual deficits; Z79.82 Long term (current) use of aspirin; Z79.02 Long term (current) use of antithrombotics/antiplatelets; Z87.891 Personal history of nicotine dependence; Z79.52 Long term (current) use of systemic steroids; Z79.899 Other long term (current) drug therapy; Z82.49 Family history of ischemic heart disease and other diseases of the circulatory system
CPT/HCPCS: 93458; 93799; 93306; 94150; 80061; 80053; 80048; 80074; 84443; 83735; 85025; 85610; 85730; 81003; 87070; 83036; 71046; 93931; 93970; 93880; 99152; 99153; C1887; C1769 ×2; C1894; J2250; J2001; J3010; J1644; Q9967

== ENCOUNTER → 2022-11-06 | Outpatient (CLI) | payer OTHER ==
--- NOTE | 2022-11-06 10:04 | P.PN ---
Progress Note - Text Progress Note Date: 11/06/22 A 5 m walk test was completed with the patient, time 1: 2.51 seconds, time to 2: 2.48 seconds, time 3: 2.55 seconds. The patient tolerated the walk well and denied any complaints of shortness breath or pain. STS risk score was calculated and discussed with the patient.
[2022-11-06 10:23] LABS: Partial Thromboplastin Time 24.4 sec (22.0-30.0); Prothrombin Time 10.2 sec (9.0-12.0)
[2022-11-06 16:39] LABS: HGB 15.4 d/dL (12.0-15.0); MCH 30.1 pg (27.0-32.0); MCHC 32.1 d/dL (32.0-37.0); MCV 93.8 FL (80.0-97.0); Mean Platelet Volume 12.4 FL (9.5-12.2); NRBC Per 100 WBC 0 X 10*3/uL (0.00-0.01); Platelet Count 261 X 10*3/uL (140-440); RBC 5.12 X 10*6/uL (4.40-5.60); RDW 14.3 % (11.5-14.5)
[2022-11-06 16:50] LABS: BUN/Creat Ratio 14.11 Ratio (12.00-20.00); Blood Urea Nitrogen 12.7 mg/dL (9.0-27.0); Chloride 102 mmol/L (96-109); Glucose 107 mg/dL (70-110); Potassium 4.6 mmol/L (3.5-5.5); Sodium 140 mmol/L (135-145)
[2022-11-06 16:51] LABS: ALT 27 U/L (10-49); AST 25 U/L (14-35); Albumin 4.2 d/dL (3.8-4.9); Alkaline Phosphatase 99 U/L (41-126); Calcium 9.7 mg/dL (8.7-10.3); Carbon Dioxide 26.2 mmol/L (21.6-31.8); Globulin 2.8 d/dL (1.6-3.3); Hepatitis A Antibody IgM Nonreactive; Hepatitis B Core IgM Nonreactive; Hepatitis B Surface Antigen Nonreactive; Hepatitis C IgG Antibody Nonreactive; Total Bilirubin 1.2 mg/dL (0.3-1.2)
== END | disposition home or self-care (01) ==
LOC: LABWHC1 08:55
PROVIDERS: ATTEND Thoracic Surgery (Cardiothoracic Vascular Surgery)
DX: I25.10 Atherosclerotic heart disease of native coronary artery without angina pectoris (principal)
CPT/HCPCS: 36415; 80053; 80074; 85027; 85610; 85730

== ENCOUNTER 2022-11-09 05:37 | Inpatient (IN) | payer OTHER ==
[~2022-11-09 05:37] MED LIST changes: +ALBUMIN HUMAN 25% 50 ML IV ONE; +ALBUMIN HUMAN 5% 500 ML IVPB ONE; -ALPRAZolam 0.25 MG TAB PO PRN; -ALPRAZolam 0.5 MG TAB PO PRN; +ASPIRIN 325 MG TAB PO ONE; -ASPIRIN 325 MG TAB PO STA; +ATORVASTATIN 10 MG TAB PO ONE; -ATORVASTATIN 80 MG TAB PO STA; +CALCIUM CHLORIDE 100 MG/ML 10 ML SYRINGE IV ONE; +CARDIOPLEGIC SOLN (K+ 16 MEQ/L 1,000 ML with SODIUM BICARB (1 MEQ/ML) 20 ML, LIDOCAINE ... PERFUSION ONE; +CHLORHEXIDINE GLUCONATE 15 ML CUP MUCOUS MEM ONE; +CLEVIDIPINE BUTYRATE 25 MG in EMPTY BAG 1 BAG IV ONE; +DILTIAZEM 125 MG in SODIUM CHLORIDE 0.9% 100 ML IV ONE; +HEPARIN SODIUM 1,000 UN/ML (10ML VL) IV ONE; -HEPARIN SODIUM 1,000 UN/ML (10ML VL) IVP ONE; -HEPARIN SODIUM 1,000 UN/ML (10ML VL) ONE; -HEPARIN SODIUM,PORCINE 10,000 UNIT in SODIUM CHLORIDE 0.9% 1,000 ML IRRIGATION PRN; -HEPARIN SODIUM,PORCINE 2,500 UNIT in SODIUM CHLORIDE 0.9% 250 ML IRRIGATION PRN; +HEPARIN SODIUM,PORCINE 5,000 UNIT in SODIUM CHLORIDE 0.9% 500 ML 500 ML IV ONE; +INSULIN REGULAR 100 UNIT in SODIUM CHLORIDE 0.9% 100 ML IV ONE; -IOPAMIDOL-370 100ML BTL INJ ONE; +LACTATED RINGERS 1,000 ML IV ONE; -LIDOCAINE 1% INJ 10MG/ML (5 ML VIAL-PF) SQ ONE; +MAGNESIUM SULFATE 16.24 MEQ in EMPTY SYRINGE 1 SYR IV ONE; +MANNITOL 25% 12.5 GM/50 ML VIAL IV ONE; +METOPROLOL TARTRATE 12.5 MG TAB PO ONE; -MIDAZOLAM 2 MG/2 ML VIAL IVP ONE; +NITROGLYCERIN SL TABS 0.4 MG TAB SUBLINGUAL ONE; -NITROGLYCERIN SL TABS 0.4 MG TAB SUBLINGUAL PRN; +NITROGLYCERIN-D5W PMX 25 MG/250 ML BTL IV ONE; +NITROGLYCERIN-D5W PMX 50 MG in DEXTROSE/WATER 1 250ML.BAG IV ONE; +NOREPINEPHRINE 4 MG in SODIUM CHLORIDE 0.9% 250 ML IV ONE; +PAPAVERINE 360 MG in SODIUM CHLORIDE 0.9% 90 ML IV ONE; +PHENYLEPHRINE 10 MG/ML VIAL IV ONE; +PHENYLEPHRINE 40 MG in SODIUM CHLORIDE 0.9% 250 ML IV ONE; +PROTAMINE SULFATE 10 MG/ML 25 ML VIAL IV ONE; +PROTAMINE SULFATE 250 MG in EMPTY BAG 1 BAG IV ONE; +SODIUM BICARB 8.4% 50 ML SYR (1 MEQ/ML) IV ONE; -SODIUM CHLORIDE 0.9% 1,000 ML in EMPTY BAG 1 BAG IV SCH; +TRANEXAMIC ACID 2,000 MG in SODIUM CHLORIDE 0.9% 80 ML IV ONE; -VERAPAMIL 2.5 MG/ML 2 ML AMP ONE; -VERAPAMIL SYRINGE (5 MG/10 ML) INTRAARTER ONE; +ceFAZolin 1,000 MG in SODIUM CHLORIDE 0.9% IRRIGATIO 1,000 ML IRRIGATION ONE; -fentaNYL (PF) 50 MCG/ML 2 ML AMP IVP ONE; -fentaNYL (PF) 50 MCG/ML 2 ML AMP ONE; +propofoL 1,000 MG/100 ML VIAL IV ONE
[2022-11-09 06:20] LABS: Glucose,Whole Blood 106 mg/dL (70-110)
[2022-11-09] MEDS ORDERED: MIDAZOLAM HCL 10 MG/10 ML VIAL ONE (07:43)
[2022-11-09] MEDS ORDERED: HEPARIN SODIUM,PORCINE 10,000 UNIT/ML 1 ML VIAL ONE (07:43)
[2022-11-09] MEDS ORDERED: AMIODARONE 50 MG/ML 3 ML VIAL IV ONE (07:43)
[2022-11-09] MEDS ORDERED: ALBUMIN HUMAN 5% (12.5gm) 250 ML BOTTLE IVPB ONE (07:43)
[2022-11-09] MEDS ORDERED: PROPOFOL 10 MG/ML 20 ML VIAL IV ONE (07:43)
[2022-11-09] MEDS ORDERED: LIDOCAINE 2% SYG (PF) 100 MG/5 ML ONE (07:43)
[2022-11-09] MEDS ORDERED: VECURONIUM 10 MG VIAL IV ONE (07:43)
[2022-11-09] MEDS ORDERED: NITROGLYCERIN-D5W PMX 50 MG/250 ML BOTTLE IV ONE (07:43)
[2022-11-09] MEDS ORDERED: ePHEDrine 50 MG/ML 1 ML VIAL ONE (07:43)
[2022-11-09] MEDS ORDERED: SODIUM BICARB 8.4% 50 ML SYR (1 MEQ/ML) ONE (07:43)
[2022-11-09] MEDS ORDERED: PHENYLEPHRINE-0.9% NACL SYG 1,000 MCG/10 ML SYRINGE ONE (07:43)
[2022-11-09] MEDS ORDERED: HEPARIN SODIUM,PORCINE 5,000 UNIT/ML 1 ML VIAL ONE (07:43)
[2022-11-09] MEDS ORDERED: IV FLUID CONTINUATION 1,000 ML IV.SOLN ONE (07:43)
[2022-11-09] MEDS ORDERED: PROTAMINE SULFATE 10 MG/ML 5 ML VIAL IV ONE (07:43)
[2022-11-09] MEDS ORDERED: fentaNYL (PF) 50 MCG/ML 50 ML VIAL ONE (07:43)
[2022-11-09 09:09] LABS: ABG Base Excess -0.6 mmol/L; ABG Glucose Whole Blood 123 mg/dL (75-99); ABG HCO3 25 mmol/L (21-25); ABG Hematocrit 42 % (34.0-46.0); ABG Ionized Calcium 4.9 mg/dL (4.5-5.3); ABG Oxygen Saturation 99.1 % (94-97); ABG PCO2 43 mmHg (35-45); ABG PH 7.37 (7.35-7.45); ABG PO2 247 mmHg (83-108); ABG Potassium Whole Blood 3.9 mmol/L (3.4-4.5); ABG Sodium Whole Blood 140 mmol/L (135-146); ABG TCO2 26 mmol/L (19-24)
[2022-11-09 09:53] LABS: ABG Base Excess -1.2 mmol/L; ABG HCO3 25 mmol/L (21-25); ABG Hematocrit 41 % (34.0-46.0); ABG Ionized Calcium 4.8 mg/dL (4.5-5.3); ABG Lactic Acid Whole Blood 0.9 mmol/L (0.5-1.6); ABG Oxygen Saturation 97.1 % (94-97); ABG PH 7.35 (7.35-7.45); ABG PO2 101 mmHg (83-108); ABG Potassium Whole Blood 3.9 mmol/L (3.4-4.5); ABG Sodium Whole Blood 139 mmol/L (135-146); ABG TCO2 26 mmol/L (19-24)
[2022-11-09 10:22] LABS: ABG Base Excess -1.1 mmol/L; ABG HCO3 24 mmol/L (21-25); ABG Hematocrit 40 % (34.0-46.0); ABG Ionized Calcium 4.7 mg/dL (4.5-5.3); ABG PCO2 41 mmHg (35-45); ABG PH 7.38 (7.35-7.45); ABG PO2 95 mmHg (83-108); ABG Potassium Whole Blood 4.2 mmol/L (3.4-4.5); ABG Sodium Whole Blood 139 mmol/L (135-146); ABG TCO2 25 mmol/L (19-24)
[2022-11-09] MEDS ORDERED: Potassium Replacement Protocol 1 EACH MISC MISCELLANE PRN (12:32)
[2022-11-09] MEDS ORDERED: IPRATROPIUM-ALBUTEROL 3 ML NEB INHALATION PRN (12:32)
[2022-11-09] MEDS ORDERED: CLEVIDIPINE BUTYRATE 25 MG in EMPTY BAG 1 BAG IV SCH ×2 (12:32→17:45)
[2022-11-09] MEDS ORDERED: NITROGLYCERIN-D5W PMX 50 MG in DEXTROSE/WATER 1 250ML.BAG IV SCH (12:32)
[2022-11-09] MEDS ORDERED: BENZOCAINE/MENTHOL LOZENG 1 EACH LOZENGE MUCOUS MEM PRN (12:32)
[2022-11-09] MEDS ORDERED: CALCIUM GLUCONATE IN NACL 2 GM in SALINE 1 100ML.BAG IVPB PRN (12:32)
[2022-11-09] MEDS ORDERED: ONDANSETRON 4 MG/2 ML VIAL IVP PRN (12:32)
[2022-11-09] MEDS ORDERED: METOCLOPRAMIDE 5 MG/ML 2 ML VIAL IVP PRN (12:32)
[2022-11-09] MEDS ORDERED: DEXTROSE 5% IN WATER 100 ML with AMIODARONE 150 MG IV PRN (12:32)
[2022-11-09] MEDS ORDERED: hydrALAZINE HCL 20 MG/ML 1 ML VIAL IVP PRN (12:32)
[2022-11-09] MEDS ORDERED: DEXMEDETOMIDINE/0.9% NACL(PMX) 400 MCG in EMPTY BAG 1 BAG IV SCH (12:32)
[2022-11-09] MEDS ORDERED: AMIODARONE 450 MG in DEXTROSE 5% IN WATER 250 ML IV PRN ×2 (12:32)
[2022-11-09] MEDS ORDERED: DEXTROSE 50% SYRINGE 50 ML IVP PRN ×2 (12:32)
[2022-11-09] MEDS ORDERED: AMIODARONE 360 MG in DEXTROSE 5% IN WATER 200 ML IV PRN ×2 (12:32)
[2022-11-09] MEDS ORDERED: Magnesium Replacement Protocol 1 EACH MISC MISCELLANE PRN (12:32)
--- NOTE | 2022-11-09 12:56 | P.OP ---
Date of Procedure: 11/09/22 Preoperative Diagnosis: Coronary artery disease Postoperative Diagnosis: Same Procedure(s) Performed: Off pump coronary artery bypass grafting 4 with sequential MCPHERSON to first diagonal and LAD, left radial artery graft to second obtuse marginal, saphenous vein graft to posterior descending (circumflex), ligation of left atrial appendage with 35 mm AtriCure clip, endovascular vein harvest, endovascular radial artery harvest. Implants: 35mm AtriCure clip Anesthesia: GETA Surgeon: Reggie Nelson Certified Ophthalmic Surgical Assistant #1: Hiram Skinner Certified Ophthalmic Surgical Assistant #2: Michi Cobb Estimated Blood Loss (ml): 200 Pathology: none sent Condition: stable Disposition: ICU Indications for Procedure: 62-year-old male with stable anginal symptomatology. Cardiac catheterization demonstrated left dominant circulation with severe circumflex disease. There was angiographic evidence of some disease in the LAD. FloWire was positive for significant stenosis in the left anterior descending. First diagonal had an ostial stenosis. Elective coronary artery bypass grafting was recommended and scheduled. Operative Findings: Targets as below. Left atrial appendage was relatively small. Conduits were good. Left ventricular function was normal. There was no significant valvular dysfunction by BARBARA. Description of Procedure: Patient was brought to the operating room and placed supine on the operating table. There was concern about the Foster-John catheter and it was reflowed. Anterior torso and bilateral lower extremities and left upper extremity were sterilely prepped and draped. Left greater saphenous vein was harvested from knee to groin and was of reasonable quality. Was harvested with endovascular harvest technique. Was prepared on the back table. Simultaneously the left radial artery was harvested with endovascular technique. Was also apparent on the back table. Simultaneous to all of this midline sternotomy was performed and the left hemisternum was retracted upwards. Left internal mammary artery was harvested on a vascular pedicle left intact on its origin from subclavian and divided distally. It was a good conduit. Left pleural space was drained with 32-Botswanan chest tube. Standard sternal retractor was placed and the pericardium was opened in the midline. Heart was exposed with pericardial sutures. The targets were identified. The first diagonal was a good size vessel. The LAD was a large vessel. Posterior descending was a relatively small vessel but felt to be graftable. Second obtuse marginal was a good size vessel and graftable fairly proximally before it disappeared intramyocardially. The first obtuse marginal was a small completely occluded vessel which was explored and not felt to be appropriate for coronary bypass due to small size and diffuse disease We began with sequential MCPHERSON to the diagonal LAD. The patient was systemically heparinized and ACT is maintained greater than 250 during grafting. MCPHERSON was tunneled into the pericardium and noted be of more than adequate length to sequentially graft to first diagonal and the LAD. We began with a [id number] anastomosis between the MCPHERSON and the first diagonal branch. The first diagonal branch was a 1.5-1.75 mm vessel was opened and blood flow control the 1.5 mm flow through [id number] anastomosis between the MCPHERSON and the nurse diagonal was performed with running 8-0 Prolene suture. On completion anastomosis flow through was removed 50 probe the proximal distal portion of the anastomosis. Suture was tied with good result and hemostasis. Good bleeding was noted out of the end of the MCPHERSON from the flow in the diagonal and this augmented with a bulldog clamp was removed and then we got controlled by placing the bulldog clamp distally on. The KULDEEP pedicle was tacked surrounding epicardium with 6-0 silk. Next the LAD was stabilized in its midportion. Proximally it had heavy calcific disease and it was opened distal to this. Was a 2.25 mm vessel. It was opened and blood flow control with a 2 mm flow through. End to side anastomosis between MCPHERSON and the LAD was performed with running 8-0 Prolene suture. On completion anastomosis flow through was 50 probe vessel distal portion anastomosis. Suture was tied with good result stasis inflow was open. Graft was noted to lay well with excellent lengths. There was no tension on the graft either proximally or jobs. The KULDEEP pedicle was tacked surrounding epicardium with 6-0 silk suture. Next the inferior wall of the heart was exposed. The posterior descending coronary artery was stabilized and opened fairly proximally. Was a soft vessel. It was opened longitudinally and a 1.5 mm flow through used occlude the flow of blood through the coronary artery. It was a 1.5 mm vessel. End-to-side anastomosis between the saphenous vein and the PDA was performed with running 7-0 Prolene suture. On completion anastomosis flow through was removed effectively probing the proximal distal portion anastomosis. Vein filled well with backbleeding to the first valve. Heart was lowered into anatomic position. The vein was noted to be of adequate length to reach the mid ascending aorta. Excellent lateral wall of the heart was exposed. The second obtuse marginal was stabilized fairly proximally near the AV groove. Was dissected out and opened and blood flow control with a 1.5 mm flow through. It was a 1.75 mm vessel. End-to-side anastomosis between the radial artery and the obtuse marginal was performed with running 7-0 Prolene suture. Completion anastomosis the flow through was removed actively probing the proximal distal portion anastomosis. Suture was tied with good result and hemostasis. Graft was noted to fill well and looked good. Backbleeding was controlled with a bulldog clamp. The heart was lowered in anatomic position. The patient got an atrial fibrillation during the circumflex graft was now cardioverted. Hemodynamic stability had been been maintained. Patient was given 150 mg bolus of amiodarone. Proximal anastomoses were now performed using 2 heartstring devices to create punch holes in the ascending aorta and occlude them. Proximal anastomoses were constructed with 5-0 Prolene suture. Heartstring devices removed on completion of each individual anastomosis. Sutures were tied and the grafts de-aired by backbleeding and needle holes. Good hemostasis was noted throughout. Heparin was now reversed with protamine. Mediastinum was drained with 36-Botswanan chest tube. Sternum was irrigated with antibiotic solution. After assuring good hemostasis, sternum was closed with 8 sternal wires. Fascia was closed with 0 Ethibond. The cutaneous tissues and arm leg and chest were closed with layers of Vicryl suture. Dry sterile dressings were applied and the patient was transferred to the ICU in stable condition. He required no inotropic support or blood transfusions
[2022-11-09] MEDS: LACTATED RINGERS 1,000 ML IV SCH (13:00)
[2022-11-09 13:05] LABS: Glucose,Whole Blood 138 mg/dL (70-110)
[2022-11-09 13:16] LABS: Basophils # (A) 0.1 k/uL (0-0.2); Basophils % (A) 0 %; Eosinophils # (A) 0.3 k/uL (0-0.7); Eosinophils % (A) 2 %; HCT 33.6 % (39.0-53.0); Lymphocytes # (A) 1.4 k/uL (1.0-4.8); Lymphocytes % (A) 9 %; MCH 31.7 pg (25.0-35.0); MCHC 34.1 g/dL (31.0-37.0); Mean Platelet Volume 9.4; Monocytes # (A) 0.5 k/uL (0-1.0); Monocytes % (A) 4 %; Neutrophils # (A) 12.3 k/uL (1.3-7.7); Neutrophils % (A) 85 %; Platelet Count 175 k/uL (150-450); RBC 3.61 m/uL (4.30-5.90); RDW 13.9 % (11.5-15.5); WBC 14.5 k/uL (3.8-10.6)
[2022-11-09 13:23] LABS: Ionized Calcium 4.7 mg/dL (4.5-5.3)
[2022-11-09 13:29] LABS: ALT 15 U/L (4-49); AST 21 U/L (17-59); African American GFR (CKD) >90 (>60 ml/min/1.73 sqM); Albumin 3.6 g/dL (3.5-5.0); Alkaline Phosphatase 49 U/L (38-126); Anion Gap 11 mmol/L; Blood Urea Nitrogen 19 mg/dL (9-20); Calcium 7.5 mg/dL (8.4-10.2); Carbon Dioxide 22 mmol/L (22-30); Chloride 107 mmol/L (98-107); Glucose 128 mg/dL (74-99); Magnesium 2.1 mg/dL (1.6-2.3); Non-African American GFR(CKD) >90 (>60 ml/min/1.73 sqM); Potassium 3.6 mmol/L (3.5-5.1); Sodium 140 mmol/L (137-145); Total Bilirubin 1.7 mg/dL (0.2-1.3); Total Protein 5.5 g/dL (6.3-8.2)
[2022-11-09 13:29] LABS: ABG Glucose Whole Blood 144 mg/dL (75-99); ABG PCO2 46 mmHg (35-45)
[2022-11-09 13:30] LABS: ABG Glucose Whole Blood 149 mg/dL (75-99)
[2022-11-09] MEDS ORDERED: DILTIAZEM 125 MG in SODIUM CHLORIDE 0.9% 100 ML IV SCH (13:30)
[2022-11-09] MEDS ORDERED: AMIODARONE 360 MG in DEXTROSE 5% IN WATER 200 ML IV SCH ×2 (13:30)
[2022-11-09] MEDS ORDERED: INSULIN REGULAR 100 UNIT in SODIUM CHLORIDE 0.9% 100 ML IV SCH (13:30)
[2022-11-09 13:33] LABS: HGB 11.4 gm/dL (13.0-17.5)
[2022-11-09 13:36] LABS: INR 1.2 (<1.2); Partial Thromboplastin Time 29.2 sec (22.0-30.0); Prothrombin Time 12.2 sec (9.0-12.0)
[2022-11-09 13:42] LABS: ABG HCO3 24 mmol/L (21-25); ABG Oxygen Saturation 99.2 % (94-97); ABG PCO2 43 mmHg (35-45); ABG PH 7.35 (7.35-7.45); ABG PO2 169 mmHg (83-108); ABG TCO2 25 mmol/L (19-24); Allen Test Performed? Yes
[2022-11-09 13:53] LABS: Glucose,Whole Blood 132 mg/dL (70-110)
--- NOTE | 2022-11-09 13:59 | XR ---
EXAMINATION TYPE: XR chest 1V portable DATE OF EXAM: 11/09/2022 1:42 PM COMPARISON: Chest radiographs from 10/25/2022 TECHNIQUE: XR chest 1V portable Portable AP radiograph of the chest. CLINICAL INDICATION:Male, 62 years old with history of Post Operative Cardiac Surgery; FINDINGS: Lungs/Pleura: Blunting of the left costophrenic angle. Bibasilar linear atelectasis. No pneumothorax. Pulmonary vascularity: Unremarkable. Heart/mediastinum: Cardiomediastinal silhouette is enlarged and stable. Postsurgical changes. Left a trial appendage occlusion device. Musculoskeletal: No acute osseous pathology. Other findings: None Lines/Tubes: Endotracheal tube with distal tip 3.8 cm above the sushil Nasogastric tube with its distal tip in the lateral quadrant sidehole in the region of the distal eso phagus. Right IJ Madison-John catheter with distal tip in the region of the right main pulmonary artery. Left-sided chest tube is in place. IMPRESSION: 1. Post cardiac surgery changes with left sided chest tube without pneumothorax. 2. Right IJ Madison-John catheter distal tip in the region of the right main pulmonary artery. 3. Endotracheal tube in appropriate position. 4. NG tube demonstrated with distal tip in the region of the distal esophagus. Recommend advancement of approximately 8 cm.
[2022-11-09] MEDS ORDERED: MUPIROCIN 2% OINT 22 GM TUBE NASAL ONE (14:00)
[2022-11-09] MEDS: POTASSIUM CHLORIDE 10 MEQ in WATER FOR INJECTION 1 100ML.BAG IVPB SCH ×4 (14:04→20:38)
[2022-11-09 14:14] LABS: Allen Test Performed? Yes
[2022-11-09 14:17] LABS: ABG Base Excess -1.2 mmol/L; ABG Glucose Whole Blood 145 mg/dL (75-99); ABG HCO3 24 mmol/L (21-25); ABG Hematocrit 38 % (34.0-46.0); ABG Lactic Acid Whole Blood 0.9 mmol/L (0.5-1.6); ABG Oxygen Saturation 97.3 % (94-97); ABG PCO2 38 mmHg (35-45); ABG PO2 96 mmHg (83-108); ABG Potassium Whole Blood 4.2 mmol/L (3.4-4.5); ABG Sodium Whole Blood 138 mmol/L (135-146); ABG TCO2 25 mmol/L (19-24)
[2022-11-09 14:18] LABS: ABG Ionized Calcium 4.6 mg/dL (4.5-5.3)
[2022-11-09 14:19] LABS: ABG PH 7.39 (7.35-7.45)
[2022-11-09 14:22] LABS: Allen Test Performed? Yes
[2022-11-09 14:23] LABS: ABG Glucose Whole Blood 145 mg/dL (75-99); ABG HCO3 22 mmol/L (21-25); ABG Hematocrit 37 % (34.0-46.0); ABG Lactic Acid Whole Blood 1.2 mmol/L (0.5-1.6); ABG Oxygen Saturation 97.3 % (94-97); ABG PCO2 38 mmHg (35-45); ABG PH 7.37 (7.35-7.45); ABG PO2 98 mmHg (83-108); ABG Potassium Whole Blood 3.9 mmol/L (3.4-4.5); ABG Sodium Whole Blood 140 mmol/L (135-146); ABG TCO2 23 mmol/L (19-24)
[2022-11-09 14:24] LABS: ABG Ionized Calcium 4.6 mg/dL (4.5-5.3)
[2022-11-09 14:26] LABS: ABG Base Excess -4.4 mmol/L; ABG HCO3 21 mmol/L (21-25); ABG PCO2 40 mmHg (35-45); ABG PH 7.34 (7.35-7.45); ABG PO2 93 mmHg (83-108); ABG TCO2 22 mmol/L (19-24); Allen Test Performed? Yes
[2022-11-09 14:27] LABS: ABG Glucose Whole Blood 139 mg/dL (75-99); ABG Hematocrit 35 % (34.0-46.0); ABG Ionized Calcium 4.4 mg/dL (4.5-5.3); ABG Lactic Acid Whole Blood 1.3 mmol/L (0.5-1.6); ABG Potassium Whole Blood 3.7 mmol/L (3.4-4.5); ABG Sodium Whole Blood 140 mmol/L (135-146)
--- NOTE | 2022-11-09 14:39 | P.CNPUL ---
History of Present Illness Consult date: 11/09/22 Requesting physician: Reggie Nelson Reason for consult: other (Mechanical ventilator/critical care management) Chief complaint: Angina History of present illness: This is a 62-year-old male patient with a known history of chronic tobacco dependence, hypertension, hyperlipidemia, CVA with some right-sided weakness right-sided facial droop right forearm numbness residuals. He was having issues with fatigue and chest discomfort and had undergone cardiac catheterization 10/25/2022 and was found to have severe coronary artery disease including a proximal LAD of 50% stenosis, mid LAD 50-60. Stenosis, proximal circumflex of 80% with a 90-100% mid circumflex lesion. He's also had 100% ostial OM1 stenosis and a nondominant RCA 99%. He was recommended coronary artery bypass grafting was brought in today electively for the surgery. He had undergone an off-pump coronary artery bypass grafting 4 with a sequential MCPHERSON to the first diagonal and LAD, left radial artery graft to the second obtuse marginal, saphenous vein graft to the posterior descending/circumflex. He is seen in the intensive care unit. Currently on the mechanical ventilator in assist control mode at a rate of 14, tidal volume 500, FiO2 of 60% and a PEEP of 5. Arterial blood gases on 100% FiO2 revealed a PaO2 of 169, pCO2 43, pH 7.35. He is currently sedated on propofol at 45 mcg/kg/m. He is requiring nitroglycerin drip at 5 mg/m. Cardizem drip at 5 mg per hour insulin drip at 1 unit per hour. Amiodarone at 1 mg/m. Lactated Ringer's at 50 MLS per hour. Current cardiac output is 5.2. Cardiac index 2.9. PA pressure 29/13. CVP 7. He has a right IJ Newton-John catheter in place. Right radial arterial line in place. Mediastinal and left pleural chest tubes in place. White count 14.5. Hemoglobin 11.4. Platelets 175. INR 1.2. Sodium 140. Potassium 3.6. Bicarb 22. BUN 19. Creatinine 0.58. Glucose 128. He is on DuoNeb inhalations. Heparin for DVT prophylaxis. Review of Systems ROS unobtainable: due to endotracheal tube Past Medical History Past Medical History: CVA/TIA, GERD/Reflux, Hyperlipidemia, Musculoskeletal Disorder, Syncope Additional Past Medical History / Comment(s): back pain, 3 bulging lower lumbar discs, pain down Rt leg, 12/2021 had cva-some residual rt sided weakness, ?passed out a few months ago, unsure why History of Any Multi-Drug Resistant Organisms: None Reported Past Surgical History: Heart Catheterization, Orthopedic Surgery Additional Past Surgical History / Comment(s): bilateral rotator cuff sx. Pain procedures Past Anesthesia/Blood Transfusion Reactions: No Reported Reaction Smoking Status: Former smoker - Past Family History Father Family Medical History: Cancer Additional Family Medical History / Comment(s): lung cancer Mother Family Medical History: Cancer Additional Family Medical History / Comment(s): lung cancer Brother(s) Additional Family Medical History / Comment(s): open heart surgery in 20's Medications and Allergies Home Medications Medication Instructions Recorded Confirmed Type Pregabalin [Lyrica] 225 mg PO BID 01/01/22 11/09/22 History Atorvastatin [Lipitor] 80 mg PO HS #30 tab 01/04/22 11/09/22 Rx Clopidogrel [Plavix] 75 mg PO DAILY #30 tab 01/04/22 11/09/22 Rx Famotidine [Pepcid] 20 mg PO BID #60 tab 01/04/22 11/09/22 Rx Aspirin 325 mg PO DAILY 10/23/22 11/09/22 History Hydrocodone/Acetaminophen 1 tab PO BID PRN 10/23/22 11/09/22 History [Hydrocodone/Acetaminophen 7.5-325] Metoprolol Succinate (ER) [Toprol 12.5 mg PO DAILY 11/06/22 11/09/22 History Xl] Allergies Allergy/AdvReac Type Severity Reaction Status Date / Time No Known Allergies Allergy Verified 11/09/22 06:03 Physical Exam Vitals: Vital Signs Temp Pulse Pulse Resp BP BP Pulse Ox 11/09/22 14:00 80 14 94 L 11/09/22 13:45 11/09/22 13:40 87 14 98 11/09/22 13:30 89 14 98 11/09/22 13:20 79 12 99 11/09/22 13:10 94.5 F L 75 14 98 11/09/22 13:00 74 14 97 11/09/22 12:54 11/09/22 06:20 97.7 F 65 18 122/77 136/80 96 FiO2 11/09/22 14:00 11/09/22 13:45 60 11/09/22 13:40 11/09/22 13:30 11/09/22 13:20 11/09/22 13:10 11/09/22 13:00 100 11/09/22 12:54 100 11/09/22 06:20 Intake and Output 11/08/22 11/09/22 11/09/22 22:59 06:59 14:59 Intake Total 100 144.11 Output Total 1225 Balance 100 -1080.89 Intake: IV 100 72 .9NS Cardiac Output 10 0.9NS Pressure Bag 9 Intake, IV Titration 72.11 Amount Lactated Ringers 1,000 ml 50 @ 50 mls/hr IV .Q20H NATALIA Rx#:[id number] propofoL 1,000 mg In 22.11 Empty Bag 1 bag @ Titrate IV .Q0M NATALIA Rx#: [id number] Output: Chest Tube Drainage 50 Mediastinal and Left 50 Pleural Urine 375 Estimated Blood Loss 800 Other: Weight 73.7 kg ABP, PAP, CO, CI - Last 8 Hours Arterial Blood Pressure 130/60 Arterial Blood Pressure 120/56 Arterial Blood Pressure 140/59 Arterial Blood Pressure 147/66 Arterial Blood Pressure 130/59 Arterial Blood Pressure 121/57 Pulmonary Artery Pressure 29/17 Pulmonary Artery Pressure 31/15 Pulmonary Artery Pressure 33/21 Pulmonary Artery Pressure 31/20 Pulmonary Artery Pressure 30/18 Pulmonary Artery Pressure 30/15 Cardiac Output 5.2 Cardiac Index 2.9 GENERAL EXAM: Intubated, sedated 62-year-old male patient on a mechanical ventilator, comfortable in no apparent distress. HEAD: Normocephalic. EYES: Normal reaction of pupils, equal size. NOSE: Clear with pink turbinates. THROAT: Oral endotracheal and gastric tube secured in place. No erythema or exudates. NECK: No masses, no JVD. Right IJ Newton-John catheter in place. CHEST: Sternal dressing dry and intact. Mediastinal and left chest tubes in place. LUNGS: Equal air entry with no crackles, wheeze, rhonchi or dullness. CVS: S1 and S2 normal with no audible murmur, regular rhythm. ABDOMEN: No hepatosplenomegaly, normal bowel sounds, no guarding or rigidity. SPINE: No scoliosis or deformity SKIN: No rashes CENTRAL NERVOUS SYSTEM: No focal deficits, tone is normal in all 4 extremities. EXTREMITIES: KENY wraps to the bilateral lower extremities. Right radial arterial line in place There is trace peripheral edema. No clubbing, no cyanosis. Peripheral pulses are intact. Results - Laboratory Findings CBC and BMP: 11/09/22 13:03 11/09/22 13:03 ABG ABG pH 7.35 (7.35-7.45) 11/09/22 13:35 ABG pCO2 43 mmHg (35-45) 11/09/22 13:35 ABG pO2 169 mmHg (83-108) H 11/09/22 13:35 ABG O2 Saturation 99.2 % (94-97) H 11/09/22 13:35 PT/INR, D-dimer PT 12.2 sec (9.0-12.0) H 11/09/22 13:03 INR 1.2 (<1.2) H 11/09/22 13:03 Abnormal lab findings: Abnormal Labs 11/06/22 11/09/22 11/09/22 09:09 08:30 08:30 WBC RBC Hgb Hct Neutrophils # PT INR ABG pCO2 46 H ABG pO2 247 H ABG Total CO2 26 H 26 H ABG O2 Saturation 99.1 H 97.1 H ABG Glucose 123 H 144 H Hemoglobin Creatinine Glucose POC Glucose (mg/dL) Calcium Total Bilirubin Total Protein Arterial Blood Glucose 123 H 144 H Crossmatch See Detail 11/09/22 11/09/22 11/09/22 08:30 10:53 13:02 WBC RBC Hgb Hct Neutrophils # PT INR ABG pCO2 ABG pO2 ABG Total CO2 25 H 25 H ABG O2 Saturation 97.3 H ABG Glucose 149 H 145 H Hemoglobin 12.4 L Creatinine Glucose POC Glucose (mg/dL) 138 H Calcium Total Bilirubin Total Protein Arterial Blood Glucose 149 H 145 H Crossmatch 11/09/22 11/09/22 11/09/22 13:03 13:03 13:03 WBC 14.5 H RBC 3.61 L Hgb 11.4 L D Hct 33.6 L Neutrophils # 12.3 H PT 12.2 H INR 1.2 H ABG pCO2 ABG pO2 ABG Total CO2 ABG O2 Saturation ABG Glucose Hemoglobin Creatinine 0.58 L Glucose 128 H POC Glucose (mg/dL) Calcium 7.5 L Total Bilirubin 1.7 H Total Protein 5.5 L Arterial Blood Glucose Crossmatch 11/09/22 11/09/22 13:35 13:51 WBC RBC Hgb Hct Neutrophils # PT INR ABG pCO2 ABG pO2 169 H ABG Total CO2 25 H ABG O2 Saturation 99.2 H ABG Glucose Hemoglobin Creatinine Glucose POC Glucose (mg/dL) 132 H Calcium Total Bilirubin Total Protein Arterial Blood Glucose Crossmatch - Diagnostic Findings Chest x-ray: image reviewed Assessment and Plan Assessment: Coronary artery disease, status post off-pump coronary artery bypass grafting 4 with a sequential MCPHERSON to the first diagonal and LAD, left radial artery graft to the second obtuse marginal, saphenous vein graft to the posterior descending/circumflex. Postoperative day #0. History of CVA several years ago with residual right-sided weakness, facial droop Hypertension Hyperlipidemia History of chronic tobacco dependence, quit earlier this month. FEV1 value 2.23 L Plan: The patient was seen and evaluated Chest x-ray, ABGs, labs and medications reviewed Titrate down the FiO2 as tolerated Plan for early extubation protocol if tolerated Continue bronchodilators Heparin for DVT prophylaxis We will continue to follow and make further recommendations based on his clinical status I have personally seen and examined the patient, performed the documentation and the assessment and plan as written. Number of minutes spent on the visit: 20.
[2022-11-09 15:09] LABS: Glucose,Whole Blood 133 mg/dL (70-110)
[2022-11-09] MEDS ORDERED: fentaNYL (PF) 50 MCG/ML 2 ML AMP IVP ONE (15:44)
[2022-11-09] MEDS ORDERED: IPRATROPIUM-ALBUTEROL 3 ML NEB INHALATION SCH (16:00)
[2022-11-09 16:15] LABS: Glucose,Whole Blood 152 mg/dL (70-110)
[2022-11-09 16:42] LABS: Basophils # (A) 0.1 k/uL (0-0.2); Basophils % (A) 1 %; Eosinophils # (A) 0.2 k/uL (0-0.7); Eosinophils % (A) 1 %; HCT 36.1 % (39.0-53.0); HGB 12.2 gm/dL (13.0-17.5); Lymphocytes # (A) 1.2 k/uL (1.0-4.8); Lymphocytes % (A) 11 %; MCH 31.7 pg (25.0-35.0); MCHC 33.8 g/dL (31.0-37.0); MCV 93.8 fL (80.0-100.0); Mean Platelet Volume 9.1; Monocytes # (A) 0.6 k/uL (0-1.0); Monocytes % (A) 5 %; Neutrophils # (A) 9.5 k/uL (1.3-7.7); Neutrophils % (A) 82 %; Platelet Count 180 k/uL (150-450); RBC 3.85 m/uL (4.30-5.90); RDW 13.8 % (11.5-15.5); WBC 11.7 k/uL (3.8-10.6)
[2022-11-09] MEDS: HEPARIN SODIUM,PORCINE/PF 5,000 UNIT/0.5 ML SYRINGE SQ SCH ×2 (16:44→23:05)
[2022-11-09] MEDS: ACETAMINOPHEN IV (For NPO) 1,000 MG in EMPTY BAG 1 BAG IVPB SCH ×2 (17:45→23:04)
[2022-11-09 18:07] LABS: Glucose,Whole Blood 126 mg/dL (70-110)
[2022-11-09] MEDS: ALBUMIN HUMAN 5% 250 ML in EMPTY BAG 1 BAG IVPB PRN ×2 (19:00→20:34)
[2022-11-09 19:02] LABS: Glucose,Whole Blood 128 mg/dL (70-110)
[2022-11-09] MEDS ORDERED: HYDROmorphone 0.5 MG/0.5 ML SYRINGE IVP STA ×2 (19:10→19:48)
[2022-11-09 19:18] LABS: Basophils # (A) 0.1 k/uL (0-0.2); Basophils % (A) 0 %; Eosinophils # (A) 0.1 k/uL (0-0.7); Eosinophils % (A) 1 %; HCT 33.1 % (39.0-53.0); HGB 11.4 gm/dL (13.0-17.5); Lymphocytes # (A) 0.8 k/uL (1.0-4.8); Lymphocytes % (A) 8 %; MCHC 34.6 g/dL (31.0-37.0); MCV 92.5 fL (80.0-100.0); Mean Platelet Volume 9.4; Monocytes # (A) 0.6 k/uL (0-1.0); Monocytes % (A) 5 %; Neutrophils # (A) 9.2 k/uL (1.3-7.7); Neutrophils % (A) 85 %; Platelet Count 176 k/uL (150-450); RBC 3.57 m/uL (4.30-5.90); RDW 13.8 % (11.5-15.5); WBC 10.8 k/uL (3.8-10.6)
[2022-11-09] MEDS ORDERED: AMIODARONE 450 MG in DEXTROSE 5% IN WATER 250 ML IV SCH ×2 (19:30)
[2022-11-09] MEDS: IPRATROPIUM-ALBUTEROL 3 ML NEB INHALATION SCH (19:40)
[2022-11-09] MEDS ORDERED: HYDROmorphone 0.5 MG/0.5 ML SYRINGE IVP PRN (19:48)
[2022-11-09 20:06] LABS: Glucose,Whole Blood 134 mg/dL (70-110)
[2022-11-09 20:49] LABS: ABG Base Excess -1.9 mmol/L; ABG HCO3 23 mmol/L (21-25); ABG Oxygen Saturation 95.8 % (94-97); ABG PCO2 36 mmHg (35-45); ABG PH 7.41 (7.35-7.45); ABG PO2 74 mmHg (83-108); ABG TCO2 24 mmol/L (19-24)
[2022-11-09 21:01] LABS: Glucose,Whole Blood 130 mg/dL (70-110)
--- NOTE | 2022-11-09 21:30 | CONS ---
CONSULTATION HISTORY OF PRESENT ILLNESS: Khoi is a 62-year-old gentleman who was recently admitted to hospital and underwent cardiac catheterization by Dr. Najera that revealed severe triple-vessel coronary artery disease and brought in electively for surgical revascularization. The patient has just returned from surgery and I am seeing the patient in the ICU, intubated on vent, currently efforts are underway to wean and extubate him. An echocardiogram at last admission revealed normal LV systolic function. The patient apparently went into atrial fibrillation during surgery and has received amiodarone, currently on amiodarone drip along with Cardizem and IV nitroglycerin and for the radial artery that was harvested for bypass. He is in sinus rhythm, stable hemodynamically. He has bypass surgery involved; sequential MCPHESRON to first diagonal and LAD; radial artery graft to OM; and saphenous vein graft to PDA with ligation of the left atrial appendage. PAST MEDICAL HISTORY: Significant for coronary artery disease, dyslipidemia. MEDICATIONS: Medications at home included, 1. Lyrica. 2. Toprol-XL. 3. Pepcid. 4. Plavix. 5. Lipitor. 6. aspirin. ALLERGIES: There are no known drug allergies. FAMILY HISTORY: Negative for premature coronary artery disease. SOCIAL HISTORY: Negative for smoking, EtOH abuse or drug abuse. REVIEW OF SYSTEMS: The patient is intubated on vent and I am not able to obtain system review. PHYSICAL EXAMINATION: VITAL SIGNS: The patient's heart rate is 70 beats per minute, blood pressure is 120/59, respiratory rate is 18. central venous pressure of 10 mm, cardiac index of 4.2, PA pressure is 28/14 mm. He was mechanically ventilated with an FiO2 of 70%. NECK: There is no jugular venous distention. CHEST: Reveals bilateral rhonchi and diminished air entry. HEART: Reveals first and second heart sounds. No gallop. No murmur. ABDOMEN: Soft. EXTREMITIES: Exam of extremities reveals mild edema. Peripheral pulses are felt. LABORATORY DATA: Labs showed that the hemoglobin is 12.2, platelet count is 180. Blood gases showed a pH of 7.3, pO2 of 169 and a pCO2 of 25. ASSESSMENT: 1. Multivessel coronary artery disease, status post coronary artery bypass grafting. 2. Perioperative atrial fibrillation. PLAN: I will continue the patient on current medications. MMODL / IJN: [id number] /
[2022-11-09] MEDS: ATORVASTATIN 80 MG TAB PO SCH (21:49)
[2022-11-09] MEDS: PREGABALIN 75 MG CAP PO SCH (21:49)
[2022-11-09 22:01] LABS: Glucose,Whole Blood 121 mg/dL (70-110)
[2022-11-09 23:00] LABS: Glucose,Whole Blood 120 mg/dL (70-110)
[2022-11-09] MEDS: KETOROLAC 15 MG/ML 1 ML VIAL IVP SCH (23:11)
[2022-11-09 23:51] LABS: Glucose,Whole Blood 115 mg/dL (70-110)
[2022-11-10] MEDS: ALBUMIN HUMAN 5% 250 ML in EMPTY BAG 1 BAG IVPB PRN ×2 (00:40→08:06)
[2022-11-10 00:57] LABS: Glucose,Whole Blood 116 mg/dL (70-110)
[2022-11-10 01:59] LABS: Glucose,Whole Blood 114 mg/dL (70-110)
[2022-11-10 02:59] LABS: Glucose,Whole Blood 113 mg/dL (70-110)
[2022-11-10 03:53] LABS: Glucose,Whole Blood 109 mg/dL (70-110)
[2022-11-10] MEDS: HYDROcodone/APAP 7.5-325MG 1 EACH TAB PO PRN (04:09)
[2022-11-10 04:11] LABS: Basophils % (A) 0 %; Eosinophils # (A) 0.1 k/uL (0-0.7); Eosinophils % (A) 2 %; HCT 31.6 % (39.0-53.0); HGB 11.1 gm/dL (13.0-17.5); Ionized Calcium 5.1 mg/dL (4.5-5.3); Lymphocytes # (A) 1.3 k/uL (1.0-4.8); Lymphocytes % (A) 18 %; MCH 32.7 pg (25.0-35.0); MCHC 35.1 g/dL (31.0-37.0); MCV 93.2 fL (80.0-100.0); Mean Platelet Volume 9.9; Monocytes # (A) 0.7 k/uL (0-1.0); Monocytes % (A) 10 %; Neutrophils # (A) 4.9 k/uL (1.3-7.7); Neutrophils % (A) 69 %; Platelet Count 160 k/uL (150-450); RBC 3.39 m/uL (4.30-5.90); RDW 13.9 % (11.5-15.5); WBC 7.2 k/uL (3.8-10.6)
[2022-11-10 04:17] LABS: ALT 13 U/L (4-49); AST 28 U/L (17-59); African American GFR (CKD) >90 (>60 ml/min/1.73 sqM); Albumin 3.4 g/dL (3.5-5.0); Alkaline Phosphatase 41 U/L (38-126); Anion Gap 5 mmol/L; Blood Urea Nitrogen 11 mg/dL (9-20); Calcium 7.9 mg/dL (8.4-10.2); Carbon Dioxide 25 mmol/L (22-30); Chloride 108 mmol/L (98-107); Glucose 99 mg/dL (74-99); Magnesium 2.1 mg/dL (1.6-2.3); Non-African American GFR(CKD) >90 (>60 ml/min/1.73 sqM); Potassium 3.8 mmol/L (3.5-5.1); Sodium 138 mmol/L (137-145); Total Bilirubin 2.4 mg/dL (0.2-1.3); Total Protein 5.3 g/dL (6.3-8.2)
[2022-11-10 05:08] LABS: Glucose,Whole Blood 108 mg/dL (70-110)
[2022-11-10 05:55] LABS: Glucose,Whole Blood 117 mg/dL (70-110)
[2022-11-10] MEDS: KETOROLAC 15 MG/ML 1 ML VIAL IVP SCH ×3 (05:59→17:59)
[2022-11-10] MEDS ORDERED: POTASSIUM CHLORIDE ER 20 MEQ TAB.ER PO SCH (06:00)
[2022-11-10 06:58] LABS: Glucose,Whole Blood 138 mg/dL (70-110)
--- NOTE | 2022-11-10 07:04 | P.ANPRN ---
Procedure Note - Anesthesia - Invasive Line Right [place] John Time Out Performed: Yes Date of Procedure: 11/09/22 Time of Procedure: 07:42 Location of Patient: PreOp Preparation: Sterile Prep, Sterile Dressing Central Line Location: Internal Jugular Ultrasound Used: No Purpose - Visualization and Identification of Vasculature: No Image Stored and Saved: No Narrative: Central line placement per sterile protocol utilized.
[2022-11-10] MEDS ORDERED: ACETAMINOPHEN TAB 325 MG TAB PO PRN (07:06)
[2022-11-10 08:13] LABS: Glucose,Whole Blood 179 mg/dL (70-110)
[2022-11-10] MEDS: HEPARIN SODIUM,PORCINE/PF 5,000 UNIT/0.5 ML SYRINGE SQ SCH ×2 (08:18→16:57)
[2022-11-10] MEDS: ASPIRIN 325 MG TAB PO SCH (08:18)
[2022-11-10] MEDS: CLOPIDOGREL 75 MG TAB PO SCH (08:19)
--- NOTE | 2022-11-10 08:24 | P.HPIM ---
History of Present Illness H&P Date: 11/10/22 Chief Complaint: Severe CAD The patient is here after having evaluation for coronary disease and found have significant circumflex disease. The patient was then evaluated by vascular surgery and is postop CABG. The patient is doing quite well on numerous drips. The patient states no chest pain and is elucidated. Alert and oriented appropriately. Postop pain but no fever or chills stated. Underlying history of previous CVA. Review of Systems Constitutional: Denies chills, Denies fever Eyes: denies blurred vision, denies pain Ears, nose, mouth and throat: Denies headache, Denies sore throat Cardiovascular: Reports chest pain, Denies shortness of breath Respiratory: Denies cough Gastrointestinal: Denies abdominal pain, Denies diarrhea, Denies nausea, Denies vomiting Musculoskeletal: Denies myalgias Past Medical History Past Medical History: CVA/TIA, GERD/Reflux, Hyperlipidemia, Musculoskeletal Disorder, Syncope Additional Past Medical History / Comment(s): back pain, 3 bulging lower lumbar discs, pain down Rt leg, 12/2021 had cva-some residual rt sided weakness, ?passed out a few months ago, unsure why History of Any Multi-Drug Resistant Organisms: None Reported Past Surgical History: Heart Catheterization, Orthopedic Surgery Additional Past Surgical History / Comment(s): bilateral rotator cuff sx. Pain procedures Past Anesthesia/Blood Transfusion Reactions: No Reported Reaction Smoking Status: Former smoker - Past Family History Father Family Medical History: Cancer Additional Family Medical History / Comment(s): lung cancer Mother Family Medical History: Cancer Additional Family Medical History / Comment(s): lung cancer Brother(s) Additional Family Medical History / Comment(s): open heart surgery in 20's Medications and Allergies Home Medications Medication Instructions Recorded Confirmed Type Pregabalin [Lyrica] 225 mg PO BID 01/01/22 11/09/22 History Atorvastatin [Lipitor] 80 mg PO HS #30 tab 01/04/22 11/09/22 Rx Clopidogrel [Plavix] 75 mg PO DAILY #30 tab 01/04/22 11/09/22 Rx Famotidine [Pepcid] 20 mg PO BID #60 tab 01/04/22 11/09/22 Rx Aspirin 325 mg PO DAILY 10/23/22 11/09/22 History Hydrocodone/Acetaminophen 1 tab PO BID PRN 10/23/22 11/09/22 History [Hydrocodone/Acetaminophen 7.5-325] Metoprolol Succinate (ER) [Toprol 12.5 mg PO DAILY 11/06/22 11/09/22 History Xl] Allergies Allergy/AdvReac Type Severity Reaction Status Date / Time No Known Allergies Allergy Verified 11/09/22 06:03 Physical Exam Vitals: Vital Signs Temp Pulse Resp Pulse Ox FiO2 11/10/22 08:00 99.1 F 59 L 15 92 L 11/10/22 07:30 63 30 H 91 L 11/10/22 07:00 70 15 94 L 11/10/22 06:30 64 21 96 11/10/22 06:00 65 17 94 L 11/10/22 05:45 71 20 92 L 11/10/22 05:30 65 20 92 L 11/10/22 05:15 68 19 92 L 11/10/22 05:00 70 21 92 L 11/10/22 04:45 70 16 91 L 11/10/22 04:30 70 18 90 L 11/10/22 04:15 70 14 91 L 11/10/22 04:00 70 12 92 L 11/10/22 03:45 70 14 92 L 11/10/22 03:30 70 16 92 L 11/10/22 03:15 70 13 92 L 11/10/22 03:00 70 12 92 L 11/10/22 02:45 69 11 L 92 L 11/10/22 02:30 70 11 L 91 L 11/10/22 02:15 70 11 L 91 L 11/10/22 02:00 70 12 92 L 11/10/22 01:45 70 14 92 L 11/10/22 01:30 70 12 92 L 11/10/22 01:15 70 13 92 L 11/10/22 01:00 70 13 90 L 11/10/22 00:45 70 14 90 L 11/10/22 00:30 70 12 93 L 11/10/22 00:15 70 12 91 L 11/10/22 00:00 70 13 91 L 70 11/09/22 23:45 70 30 H 91 L 11/09/22 23:30 70 16 91 L 11/09/22 23:23 70 14 91 L 11/09/22 23:00 70 23 92 L 11/09/22 22:45 70 16 92 L 11/09/22 22:30 70 22 92 L 11/09/22 22:15 70 23 93 L 11/09/22 22:00 70 21 93 L 11/09/22 21:45 70 17 93 L 11/09/22 21:30 70 23 92 L 11/09/22 21:20 70 20 91 L 11/09/22 21:15 70 22 91 L 11/09/22 21:10 70 14 92 L 11/09/22 21:05 70 14 92 L 11/09/22 21:00 0 L 14 90 L 11/09/22 20:55 70 18 90 L 11/09/22 20:50 70 14 93 L 11/09/22 20:45 70 14 93 L 11/09/22 20:40 69 15 93 L 11/09/22 20:35 70 14 95 11/09/22 20:30 70 14 92 L 11/09/22 20:25 70 19 93 L 11/09/22 20:20 70 19 93 L 11/09/22 20:15 70 23 94 L 11/09/22 20:10 69 27 H 97 11/09/22 20:05 69 14 97 11/09/22 20:00 46 L 14 97 70 11/09/22 19:56 69 11/09/22 19:55 70 14 97 11/09/22 19:50 78 14 97 11/09/22 19:45 69 14 97 11/09/22 19:41 70 11/09/22 19:40 69 12 97 11/09/22 19:35 69 15 95 100 11/09/22 19:30 69 17 93 L 11/09/22 19:25 54 L 17 91 L 11/09/22 19:20 55 L 16 89 L 11/09/22 19:15 63 19 90 L 11/09/22 19:10 100 41 H 82 L 100 11/09/22 19:05 79 23 93 L 11/09/22 19:00 52 L 19 95 11/09/22 18:55 51 L 15 95 70 11/09/22 18:51 70 11/09/22 18:30 58 L 14 95 11/09/22 18:00 64 16 94 L 80 11/09/22 17:42 80 11/09/22 17:30 72 16 95 90 11/09/22 17:06 90 11/09/22 17:00 75 17 94 L 100 11/09/22 16:45 75 16 93 L 11/09/22 16:33 100 11/09/22 16:30 89 39 H 82 L 100 11/09/22 16:15 75 17 93 L 70 11/09/22 16:01 70 11/09/22 16:00 99.0 F 77 17 91 L 90 11/09/22 15:45 114 H 29 H 83 L 100 11/09/22 15:30 71 14 92 L 11/09/22 15:27 40 11/09/22 15:22 74 11/09/22 15:16 73 11/09/22 15:15 74 14 96 11/09/22 15:03 50 11/09/22 15:00 96.1 F L 74 14 95 60 11/09/22 14:53 60 11/09/22 14:30 95.4 F L 76 14 94 L 60 11/09/22 14:00 80 14 94 L 11/09/22 13:45 60 11/09/22 13:40 87 14 98 11/09/22 13:35 100 11/09/22 13:30 89 14 98 11/09/22 13:20 79 12 99 11/09/22 13:10 94.5 F L 75 14 98 11/09/22 13:00 74 14 97 100 11/09/22 12:54 100 Intake and Output 11/09/22 11/10/22 11/10/22 22:59 06:59 14:59 Intake Total 1612.082 789.078 59.657 Output Total 1260 1895 45 Balance 352.082 -1105.922 14.657 Intake: IV 1096 782 59 .9NS Cardiac Output 80 60 0.9NS Pressure Bag 66 72 9 ACETAMINOPHEN IV (For NPO 100 ) 1,000 mg In Empty Bag 1 bag @ 400 mls/hr IVPB Q6HR [facility] Rx#:[id number] Albumin Human 5% 250 ml 500 250 In Empty Bag 1 bag @ 250 mls/hr IVPB Q1HR PRN Rx#: [id number] Lactated Ringers 1,000 ml 150 400 50 @ 20 mls/hr IV .Q24H [facility] Rx#:[id number] Potassium Chloride 10 meq 200 In Water For Injection 1 100ml.bag @ 100 mls/hr IVPB Q1H [facility] Rx#: [id number] Intake, IV Titration 516.082 7.078 0.657 Amount Clevidipine Butyrate 25 0 mg In Empty Bag 1 bag @ 1 MG/HR 2 mls/hr IV .Q24H [facility] Rx#:[id number] Dexmedetomidine/0.9% NaCl 21.865 (Pmx) 400 mcg In Empty Bag 1 bag @ Titrate IV . Q0M [facility] Rx#:[id number] Insulin Regular 100 unit 5.412 7.078 0.657 In Sodium Chloride 0.9% 100 ml @ Per Protocol IV .Q0M [facility] Rx#:[id number] Lactated Ringers 1,000 ml 200 @ 20 mls/hr IV .Q24H [facility] Rx#:[id number] Potassium Chloride 10 meq 100 In Water For Injection 1 100ml.bag @ 100 mls/hr IVPB Q1H [facility] Rx#: [id number] Potassium Chloride 10 meq 100 In Water For Injection 1 100ml.bag @ 100 mls/hr IVPB Q1H [facility] Rx#: [id number] ceFAZolin 2 gm In Sodium 50 Chloride 0.9% 50 ml @ 100 mls/hr IVPB Q8HR [facility] Rx# :[id number] propofoL 1,000 mg In 38.805 Empty Bag 1 bag @ Titrate IV .Q0M [facility] Rx#: [id number] Output: Chest Tube Drainage 460 370 20 Mediastinal and Left 460 370 20 Pleural Urine 800 1525 25 Other: Voiding Method Indwelling Catheter Indwelling Catheter Weight 77.6 kg ABP, PAP, CO, CI - Last 8 Hours Arterial Blood Pressure 114/55 Arterial Blood Pressure 117/52 Arterial Blood Pressure 109/56 Arterial Blood Pressure 118/54 Arterial Blood Pressure 115/58 Arterial Blood Pressure 129/58 Arterial Blood Pressure 124/61 Arterial Blood Pressure 114/67 Arterial Blood Pressure 120/64 Arterial Blood Pressure 118/57 Arterial Blood Pressure 122/61 Arterial Blood Pressure 97/61 Arterial Blood Pressure 94/55 Arterial Blood Pressure 107/54 Arterial Blood Pressure 81/55 Arterial Blood Pressure 100/50 Arterial Blood Pressure 102/53 Arterial Blood Pressure 97/50 Arterial Blood Pressure 95/49 Arterial Blood Pressure 87/48 Arterial Blood Pressure 93/49 Arterial Blood Pressure 90/47 Arterial Blood Pressure 94/48 Arterial Blood Pressure 94/48 Arterial Blood Pressure 95/50 Arterial Blood Pressure 88/49 Arterial Blood Pressure 90/46 Pulmonary Artery Pressure 35/20 Pulmonary Artery Pressure 30/10 Pulmonary Artery Pressure 29/7 Pulmonary Artery Pressure 24/9 Pulmonary Artery Pressure 24/8 Pulmonary Artery Pressure 31/9 Pulmonary Artery Pressure 29/11 Pulmonary Artery Pressure 44/16 Pulmonary Artery Pressure 31/14 Pulmonary Artery Pressure 27/8 Pulmonary Artery Pressure 31/12 Pulmonary Artery Pressure 31/11 Pulmonary Artery Pressure 25/11 Pulmonary Artery Pressure 23/9 Pulmonary Artery Pressure 26/8 Pulmonary Artery Pressure 23/8 Pulmonary Artery Pressure 23/11 Pulmonary Artery Pressure 23/8 Pulmonary Artery Pressure 21/7 Pulmonary Artery Pressure 22/9 Pulmonary Artery Pressure 22/10 Pulmonary Artery Pressure 22/9 Pulmonary Artery Pressure 22/8 Pulmonary Artery Pressure 21/8 Pulmonary Artery Pressure 21/9 Pulmonary Artery Pressure 17/7 Pulmonary Artery Pressure 20/7 Cardiac Output 5 Cardiac Output 5 Cardiac Output 5.0 Cardiac Output 5.4 Cardiac Output 5.4 Cardiac Output 5.4 Cardiac Output 4.9 Cardiac Index 2.8 Cardiac Index 2.8 Cardiac Index 2.8 Cardiac Index 3 Cardiac Index 3 Cardiac Index 3 Cardiac Index 2.7 - Constitutional General appearance: no acute distress - EENT Eyes: EOMI - Neck Neck: no lymphadenopathy - Respiratory Respiratory: bilateral: diminished - Cardiovascular Rhythm: regular Heart sounds: normal: S1, S2 Abnormal Heart Sounds: no S3 Gallop - Gastrointestinal General gastrointestinal: soft, no tenderness - Psychiatric Psychiatric: A&O x's 3, appropriate affect Results CBC & Chem 7: 11/10/22 03:50 11/10/22 03:50 Labs: Abnormal Lab Results - Last 24 Hours (Table) 11/06/22 11/09/22 11/09/22 Range/Units 09:09 08:30 08:30 WBC (3.8-10.6) k/uL RBC (4.30-5.90) m/uL Hgb (13.0-17.5) gm/dL Hct (39.0-53.0) % Neutrophils # (1.3-7.7) k/uL Lymphocytes # (1.0-4.8) k/uL PT (9.0-12.0) sec INR (<1.2) ABG pH (7.35-7.45) ABG pCO2 46 H (35-45) mmHg ABG pO2 247 H (83-108) mmHg ABG Total CO2 26 H 26 H (19-24) mmol/L ABG O2 Saturation 99.1 H 97.1 H (94-97) % ABG Ionized Calcium (4.5-5.3) mg/dL ABG Glucose 123 H 144 H (75-99) mg/dL Hemoglobin (13.0-17.5) gm/dL Chloride (98-107) mmol/L Creatinine (0.66-1.25) mg/dL Glucose (74-99) mg/dL POC Glucose (mg/dL) (70-110) mg/dL Calcium (8.4-10.2) mg/dL Total Bilirubin (0.2-1.3) mg/dL Total Protein (6.3-8.2) g/dL Albumin (3.5-5.0) g/dL Arterial Blood Glucose 123 H 144 H (75-99) mg/dL Crossmatch See Detail 11/09/22 11/09/22 11/09/22 Range/Units 08:30 10:53 11:23 WBC (3.8-10.6) k/uL RBC (4.30-5.90) m/uL Hgb (13.0-17.5) gm/dL Hct (39.0-53.0) % Neutrophils # (1.3-7.7) k/uL Lymphocytes # (1.0-4.8) k/uL PT (9.0-12.0) sec INR (<1.2) ABG pH (7.35-7.45) ABG pCO2 (35-45) mmHg ABG pO2 (83-108) mmHg ABG Total CO2 25 H 25 H (19-24) mmol/L ABG O2 Saturation 97.3 H 97.3 H (94-97) % ABG Ionized Calcium (4.5-5.3) mg/dL ABG Glucose 149 H 145 H 145 H (75-99) mg/dL Hemoglobin 12.4 L 12.1 L (13.0-17.5) gm/dL Chloride (98-107) mmol/L Creatinine (0.66-1.25) mg/dL Glucose (74-99) mg/dL POC Glucose (mg/dL) (70-110) mg/dL Calcium (8.4-10.2) mg/dL Total Bilirubin (0.2-1.3) mg/dL Total Protein (6.3-8.2) g/dL Albumin (3.5-5.0) g/dL Arterial Blood Glucose 149 H 145 H 145 H (75-99) mg/dL Crossmatch 11/09/22 11/09/22 11/09/22 Range/Units 11:55 13:02 13:03 WBC 14.5 H (3.8-10.6) k/uL RBC 3.61 L (4.30-5.90) m/uL Hgb 11.4 L D (13.0-17.5) gm/dL Hct 33.6 L (39.0-53.0) % Neutrophils # 12.3 H (1.3-7.7) k/uL Lymphocytes # (1.0-4.8) k/uL PT (9.0-12.0) sec INR (<1.2) ABG pH 7.34 L (7.35-7.45) ABG pCO2 (35-45) mmHg ABG pO2 (83-108) mmHg ABG Total CO2 (19-24) mmol/L ABG O2 Saturation (94-97) % ABG Ionized Calcium 4.4 L (4.5-5.3) mg/dL ABG Glucose 139 H (75-99) mg/dL Hemoglobin 11.2 L (13.0-17.5) gm/dL Chloride (98-107) mmol/L Creatinine (0.66-1.25) mg/dL Glucose (74-99) mg/dL POC Glucose (mg/dL) 138 H (70-110) mg/dL Calcium (8.4-10.2) mg/dL Total Bilirubin (0.2-1.3) mg/dL Total Protein (6.3-8.2) g/dL Albumin (3.5-5.0) g/dL Arterial Blood Glucose 139 H (75-99) mg/dL Crossmatch 11/09/22 11/09/22 11/09/22 Range/Units 13:03 13:03 13:35 WBC (3.8-10.6) k/uL RBC (4.30-5.90) m/uL Hgb (13.0-17.5) gm/dL Hct (39.0-53.0) % Neutrophils # (1.3-7.7) k/uL Lymphocytes # (1.0-4.8) k/uL PT 12.2 H (9.0-12.0) sec INR 1.2 H (<1.2) ABG pH (7.35-7.45) ABG pCO2 (35-45) mmHg ABG pO2 169 H (83-108) mmHg ABG Total CO2 25 H (19-24) mmol/L ABG O2 Saturation 99.2 H (94-97) % ABG Ionized Calcium (4.5-5.3) mg/dL ABG Glucose (75-99) mg/dL Hemoglobin (13.0-17.5) gm/dL Chloride (98-107) mmol/L Creatinine 0.58 L (0.66-1.25) mg/dL Glucose 128 H (74-99) mg/dL POC Glucose (mg/dL) (70-110) mg/dL Calcium 7.5 L (8.4-10.2) mg/dL Total Bilirubin 1.7 H (0.2-1.3) mg/dL Total Protein 5.5 L (6.3-8.2) g/dL Albumin (3.5-5.0) g/dL Arterial Blood Glucose (75-99) mg/dL Crossmatch 11/09/22 11/09/22 11/09/22 Range/Units 13:51 14:58 16:07 WBC (3.8-10.6) k/uL RBC (4.30-5.90) m/uL Hgb (13.0-17.5) gm/dL Hct (39.0-53.0) % Neutrophils # (1.3-7.7) k/uL Lymphocytes # (1.0-4.8) k/uL PT (9.0-12.0) sec INR (<1.2) ABG pH (7.35-7.45) ABG pCO2 (35-45) mmHg ABG pO2 (83-108) mmHg ABG Total CO2 (19-24) mmol/L ABG O2 Saturation (94-97) % ABG Ionized Calcium (4.5-5.3) mg/dL ABG Glucose (75-99) mg/dL Hemoglobin (13.0-17.5) gm/dL Chloride (98-107) mmol/L Creatinine (0.66-1.25) mg/dL Glucose (74-99) mg/dL POC Glucose (mg/dL) 132 H 133 H 152 H (70-110) mg/dL Calcium (8.4-10.2) mg/dL Total Bilirubin (0.2-1.3) mg/dL Total Protein (6.3-8.2) g/dL Albumin (3.5-5.0) g/dL Arterial Blood Glucose (75-99) mg/dL Crossmatch 11/09/22 11/09/22 11/09/22 Range/Units 16:08 18:00 19:00 WBC 11.7 H (3.8-10.6) k/uL RBC 3.85 L (4.30-5.90) m/uL Hgb 12.2 L (13.0-17.5) gm/dL Hct 36.1 L (39.0-53.0) % Neutrophils # 9.5 H (1.3-7.7) k/uL Lymphocytes # (1.0-4.8) k/uL PT (9.0-12.0) sec INR (<1.2) ABG pH (7.35-7.45) ABG pCO2 (35-45) mmHg ABG pO2 (83-108) mmHg ABG Total CO2 (19-24) mmol/L ABG O2 Saturation (94-97) % ABG Ionized Calcium (4.5-5.3) mg/dL ABG Glucose (75-99) mg/dL Hemoglobin (13.0-17.5) gm/dL Chloride (98-107) mmol/L Creatinine (0.66-1.25) mg/dL Glucose (74-99) mg/dL POC Glucose (mg/dL) 126 H 128 H (70-110) mg/dL Calcium (8.4-10.2) mg/dL Total Bilirubin (0.2-1.3) mg/dL Total Protein (6.3-8.2) g/dL Albumin (3.5-5.0) g/dL Arterial Blood Glucose (75-99) mg/dL Crossmatch 11/09/22 11/09/22 11/09/22 Range/Units 19:00 19:57 20:47 WBC 10.8 H (3.8-10.6) k/uL RBC 3.57 L (4.30-5.90) m/uL Hgb 11.4 L (13.0-17.5) gm/dL Hct 33.1 L (39.0-53.0) % Neutrophils # 9.2 H (1.3-7.7) k/uL Lymphocytes # 0.8 L (1.0-4.8) k/uL PT (9.0-12.0) sec INR (<1.2) ABG pH (7.35-7.45) ABG pCO2 (35-45) mmHg ABG pO2 74 L (83-108) mmHg ABG Total CO2 (19-24) mmol/L ABG O2 Saturation (94-97) % ABG Ionized Calcium (4.5-5.3) mg/dL ABG Glucose (75-99) mg/dL Hemoglobin (13.0-17.5) gm/dL Chloride (98-107) mmol/L Creatinine (0.66-1.25) mg/dL Glucose (74-99) mg/dL POC Glucose (mg/dL) 134 H (70-110) mg/dL Calcium (8.4-10.2) mg/dL Total Bilirubin (0.2-1.3) mg/dL Total Protein (6.3-8.2) g/dL Albumin (3.5-5.0) g/dL Arterial Blood Glucose (75-99) mg/dL Crossmatch 11/09/22 11/09/22 11/09/22 Range/Units 21:00 22:00 22:58 WBC (3.8-10.6) k/uL RBC (4.30-5.90) m/uL Hgb (13.0-17.5) gm/dL Hct (39.0-53.0) % Neutrophils # (1.3-7.7) k/uL Lymphocytes # (1.0-4.8) k/uL PT (9.0-12.0) sec INR (<1.2) ABG pH (7.35-7.45) ABG pCO2 (35-45) mmHg ABG pO2 (83-108) mmHg ABG Total CO2 (19-24) mmol/L ABG O2 Saturation (94-97) % ABG Ionized Calcium (4.5-5.3) mg/dL ABG Glucose (75-99) mg/dL Hemoglobin (13.0-17.5) gm/dL Chloride (98-107) mmol/L Creatinine (0.66-1.25) mg/dL Glucose (74-99) mg/dL POC Glucose (mg/dL) 130 H 121 H 120 H (70-110) mg/dL Calcium (8.4-10.2) mg/dL Total Bilirubin (0.2-1.3) mg/dL Total Protein (6.3-8.2) g/dL Albumin (3.5-5.0) g/dL Arterial Blood Glucose (75-99) mg/dL Crossmatch 11/09/22 11/10/22 11/10/22 Range/Units 23:50 00:55 01:57 WBC (3.8-10.6) k/uL RBC (4.30-5.90) m/uL Hgb (13.0-17.5) gm/dL Hct (39.0-53.0) % Neutrophils # (1.3-7.7) k/uL Lymphocytes # (1.0-4.8) k/uL PT (9.0-12.0) sec INR (<1.2) ABG pH (7.35-7.45) ABG pCO2 (35-45) mmHg ABG pO2 (83-108) mmHg ABG Total CO2 (19-24) mmol/L ABG O2 Saturation (94-97) % ABG Ionized Calcium (4.5-5.3) mg/dL ABG Glucose (75-99) mg/dL Hemoglobin (13.0-17.5) gm/dL Chloride (98-107) mmol/L Creatinine (0.66-1.25) mg/dL Glucose (74-99) mg/dL POC Glucose (mg/dL) 115 H 116 H 114 H (70-110) mg/dL Calcium (8.4-10.2) mg/dL Total Bilirubin (0.2-1.3) mg/dL Total Protein (6.3-8.2) g/dL Albumin (3.5-5.0) g/dL Arterial Blood Glucose (75-99) mg/dL Crossmatch 11/10/22 11/10/22 11/10/22 Range/Units 02:56 03:50 03:50 WBC (3.8-10.6) k/uL RBC 3.39 L (4.30-5.90) m/uL Hgb 11.1 L (13.0-17.5) gm/dL Hct 31.6 L (39.0-53.0) % Neutrophils # (1.3-7.7) k/uL Lymphocytes # (1.0-4.8) k/uL PT (9.0-12.0) sec INR (<1.2) ABG pH (7.35-7.45) ABG pCO2 (35-45) mmHg ABG pO2 (83-108) mmHg ABG Total CO2 (19-24) mmol/L ABG O2 Saturation (94-97) % ABG Ionized Calcium (4.5-5.3) mg/dL ABG Glucose (75-99) mg/dL Hemoglobin (13.0-17.5) gm/dL Chloride 108 H (98-107) mmol/L Creatinine 0.60 L (0.66-1.25) mg/dL Glucose (74-99) mg/dL POC Glucose (mg/dL) 113 H (70-110) mg/dL Calcium 7.9 L (8.4-10.2) mg/dL Total Bilirubin 2.4 H (0.2-1.3) mg/dL Total Protein 5.3 L (6.3-8.2) g/dL Albumin 3.4 L (3.5-5.0) g/dL Arterial Blood Glucose (75-99) mg/dL Crossmatch 11/10/22 11/10/22 11/10/22 Range/Units 05:52 06:57 08:11 WBC (3.8-10.6) k/uL RBC (4.30-5.90) m/uL Hgb (13.0-17.5) gm/dL Hct (39.0-53.0) % Neutrophils # (1.3-7.7) k/uL Lymphocytes # (1.0-4.8) k/uL PT (9.0-12.0) sec INR (<1.2) ABG pH (7.35-7.45) ABG pCO2 (35-45) mmHg ABG pO2 (83-108) mmHg ABG Total CO2 (19-24) mmol/L ABG O2 Saturation (94-97) % ABG Ionized Calcium (4.5-5.3) mg/dL ABG Glucose (75-99) mg/dL Hemoglobin (13.0-17.5) gm/dL Chloride (98-107) mmol/L Creatinine (0.66-1.25) mg/dL Glucose (74-99) mg/dL POC Glucose (mg/dL) 117 H 138 H 179 H (70-110) mg/dL Calcium (8.4-10.2) mg/dL Total Bilirubin (0.2-1.3) mg/dL Total Protein (6.3-8.2) g/dL Albumin (3.5-5.0) g/dL Arterial Blood Glucose (75-99) mg/dL Crossmatch Thrombosis Risk Factor Assmnt - Choose All That Apply Each Factor Represents 1 point: Obesity (BMI >25) Each Risk Factor Represents 2 Points: Age 61-74 years, Central venous access Each Risk Factor Represents 5 Points: Major surgery lasting over 3 hours Thrombosis Risk Factor Assessment Total Risk Factor Score: 10 Thrombosis Risk Factor Assessment Level: High Risk Assessment and Plan (1) Hx of CABG Current Visit: Yes Status: Acute Code(s): Z95.1 - PRESENCE OF AORTOCORONARY BYPASS GRAFT SNOMED Code(s): 704153887 (2) Hypertension Current Visit: Yes Status: Acute Code(s): I10 - ESSENTIAL (PRIMARY) HY PERTENSION SNOMED Code(s): 55643742 (3) Hyperlipidemia Current Visit: Yes Status: Acute Code(s): E78.5 - HYPERLIPIDEMIA, UNSPECIFIED SNOMED Code(s): 26551345 (4) Former cigarette smoker Current Visit: Yes Status: Acute Code(s): Z87.891 - PERSONAL HISTORY OF NICOTINE DEPENDENCE SNOMED Code(s): 474622394 Plan: Continue standard postop care for CABG protocol. Reconcile medications as necessary. Appreciate multiple consultants input. See orders otherwise.
[2022-11-10] MEDS ORDERED: DEXTROSE 50% SYRINGE 50 ML IVP PRN (08:29)
[2022-11-10] MEDS: IPRATROPIUM-ALBUTEROL 3 ML NEB INHALATION SCH ×5 (08:30→19:32)
--- NOTE | 2022-11-10 08:35 | XR ---
EXAMINATION TYPE: XR chest 1V portable DATE OF EXAM: 11/09/2022 CLINICAL HISTORY: Difficulty breathing progress study. Postopen cardiac surgery. TECHNIQUE: Single AP portable semiupright view of the chest is obtained. COMPARISON: Chest x-ray from one day earlier and older studies. FINDINGS: Interval extubation with removal of endotracheal and orogastric tubes. Stable mediastinal drainage catheter and left-sided chest tube. The right internal jugular [place] catheter is slightl y advanced into the right lower lobe pulmonary arteries. Overlying sternal wires and mediastinal clip s redemonstrated. Left atrial appendage clip redemonstrated. Overlying epicardial pacer wires. Persistent cardiomegaly with small to tiny bilateral pleural effusions and bibasilar opacity favoring atelectasis. No pneumothorax seen bilaterally. Left-sided subcutaneous emphysema is slightly more pr ominent. Osseous structures are intact. IMPRESSION: Interval extubation. Consider slight retraction of the right internal jugular [place] c atheter. Cardiomegaly with small to tiny bilateral pleural effusions slightly worsened from prior phyllis dy. Bibasilar atelectasis and/or developing infiltrate redemonstrated. No pneumothorax is seen. Sligh tly more prominent left-sided subcutaneous emphysema is noted however.
--- NOTE | 2022-11-10 08:53 | P.PN ---
Subjective Progress Note Date: 11/10/22 Principal diagnosis: Coronary artery disease. Previous medical history of hypertension, hyperlipidemia, single episode of syncope with unknown cause, tobacco dependence with recent cessation, stroke in 2021 with some residual right-sided weakness, and family history of premature coronary artery disease with brother having open heart surgery in his 30s POD #1 off-pump coronary artery bypass grafting 4 with sequential left internal mammary artery to the first diagonal and left anterior descending artery, left radial artery graft to the second obtuse marginal artery, reverse saphenous vein graft to the posterior descending (circumflex), ligation of the left atrial appendage with 35 mm AtriCure clip, endovascular vein harvest, endovascular radial artery harvest Intraoperative atrial fibrillation, currently sinus The patient was seen and examined this morning sitting up in a in the intensive care unit in no acute distress. He was successfully extubated last night at 20:50. States pain is controlled on current medication regimen, denies shortness of breath. He was on IV amiodarone for A. fib prophylaxis, IV Cardizem and nitro for vessel spasm prophylaxis, all of which have been discontinued. Patient did have some bradycardia and hypotension last night requiring pacing, not currently pacing and hemodynamically stable. Right internal jugular Chase/Cordis, right radial arterial line, mediastinal/left pleural chest tubes all remain. Chest x-ray, labs reviewed. No other new concerns. Objective - Vital Signs Vital signs: Vital Signs Temp 99.0 F 11/09/22 16:00 Pulse 70 11/10/22 07:00 Resp 15 11/10/22 07:00 BP 136/80 11/09/22 06:20 Pulse Ox 94 L 11/10/22 07:00 FiO2 70 11/10/22 00:00 Intake & Output 11/09/22 11/10/22 11/10/22 18:59 06:59 18:59 Intake Total 312.200 2858.078 59 Output Total 2340 2315 45 Balance -1425.525 -485.922 14 Weight 77.6 kg Intake: IV 257 1722 59 .9NS Cardiac Output 50 120 0.9NS Pressure Bag 54 102 9 ACETAMINOPHEN IV (For NPO 100 ) 1,000 mg In Empty Bag 1 bag @ 400 mls/hr IVPB Q6HR [facility] Rx#:[id number] Albumin Human 5% 250 ml 750 In Empty Bag 1 bag @ 250 mls/hr IVPB Q1HR PRN Rx#: [id number] Lactated Ringers 1,000 ml 550 50 @ 20 mls/hr IV .Q24H [facility] Rx#:[id number] Potassium Chloride 10 meq 200 In Water For Injection 1 100ml.bag @ 100 mls/hr IVPB Q1H [facility] Rx#: [id number] Intake, IV Titration 657.475 107.078 Amount Clevidipine Butyrate 25 9.333 mg In Empty Bag 1 bag @ 1 MG/HR 2 mls/hr IV .Q24H [facility] Rx#:[id number] Dexmedetomidine/0.9% NaCl 21.865 (Pmx) 400 mcg In Empty Bag 1 bag @ Titrate IV . Q0M [facility] Rx#:[id number] Insulin Regular 100 unit 5.412 7.078 In Sodium Chloride 0.9% 100 ml @ Per Protocol IV .Q0M [facility] Rx#:[id number] Lactated Ringers 1,000 ml 300 @ 20 mls/hr IV .Q24H [facility] Rx#:[id number] Potassium Chloride 10 meq 200 In Water For Injection 1 100ml.bag @ 100 mls/hr IVPB Q1H [facility] Rx#: [id number] Potassium Chloride 10 meq 100 In Water For Injection 1 100ml.bag @ 100 mls/hr IVPB Q1H [facility] Rx#: [id number] ceFAZolin 2 gm In Sodium 50 Chloride 0.9% 50 ml @ 100 mls/hr IVPB Q8HR [facility] Rx# :[id number] propofoL 1,000 mg In 70.865 Empty Bag 1 bag @ Titrate IV .Q0M [facility] Rx#: [id number] Output: Chest Tube Drainage 360 570 20 Mediastinal and Left 360 570 20 Pleural Urine 1180 1745 25 Estimated Blood Loss 800 Other: Voiding Method Indwelling Catheter Indwelling Catheter ABP, PAP, CO, CI - Last Documented Arterial Blood Pressure 109/56 Pulmonary Artery Pressure 29/7 Cardiac Output 5.0 Cardiac Index 2.8 - Exam CONSTITUTIONAL: Appears comfortable, cooperative, no acute distress RESPIRATORY: Lungs sounds diminished bilaterally. Respirations even, nonlabored. Currently on 4 L nasal cannula with oxygen saturation 92%. Able to achieve 750 mL on incentive spirometry. Strong cough. CARDIOVASCULAR: S1, S2 present. Regular rate and rhythm, sinus rhythm on telemetry. Sternum stable. Palpable peripheral pulses bilaterally. No edema present. No calf pain or tenderness noted. Heart hugger in place with patient demonstrating appropriate use. Antiembolism stockings, SCDs present. GASTROINTESTINAL: Abdomen soft, nontender, nondistended. Hypoactive bowel sounds present 4 quadrants. Tolerating clear liquid diet. Denies flatus GENITOURINARY: Davis present draining clear, yellow urine. Output overnight 50-260 mL per hour INTEGUMENTARY: Skin is warm and dry with evidence of good perfusion. Anterior chest incision well approximated and covered with dry intact dressing. Left lower extremity EVH site and left radial artery harvest site well approximated without redness or drainage. NEUROLOGIC: Cranial nerves II through XII intact MUSKULOSKELETAL: Able to move all extremities, strength equal bilaterally, gait normal PSYCHIATRIC: Alert and oriented to person place and time, appropriate affect, intact judgment and insight INVASIVE LINES AND TUBES: Mediastinal/left pleural chest tubes present and connected to wall suction, no air leaks present, 370 mL serosanguineous drainage overnight, 970 mL since surgery. A/V epicardial pacemaker wires present, connec bennett to generator, backup rate 50 bpm. Right internal jugular Chase/Cordis, right radial arterial line present. Last CO/CI 5.0/2.8, PA 28/8, CVP 8. - Allied health notes Allied health notes reviewed: nursing - Labs CBC & Chem 7: 11/10/22 03:50 11/10/22 03:50 Labs: Abnormal Lab Results - Last 24 Hours (Table) 11/06/22 11/09/22 11/09/22 Range/Units 09:09 08:30 08:30 WBC (3.8-10.6) k/uL RBC (4.30-5.90) m/uL Hgb (13.0-17.5) gm/dL Hct (39.0-53.0) % Neutrophils # (1.3-7.7) k/uL Lymphocytes # (1.0-4.8) k/uL PT (9.0-12.0) sec INR (<1.2) ABG pH (7.35-7.45) ABG pCO2 46 H (35-45) mmHg ABG pO2 247 H (83-108) mmHg ABG Total CO2 26 H 26 H (19-24) mmol/L ABG O2 Saturation 99.1 H 97.1 H (94-97) % ABG Ionized Calcium (4.5-5.3) mg/dL ABG Glucose 123 H 144 H (75-99) mg/dL Hemoglobin (13.0-17.5) gm/dL Chloride (98-107) mmol/L Creatinine (0.66-1.25) mg/dL Glucose (74-99) mg/dL POC Glucose (mg/dL) (70-110) mg/dL Calcium (8.4-10.2) mg/dL Total Bilirubin (0.2-1.3) mg/dL Total Protein (6.3-8.2) g/dL Albumin (3.5-5.0) g/dL Arterial Blood Glucose 123 H 144 H (75-99) mg/dL Crossmatch See Detail 11/09/22 11/09/22 11/09/22 Range/Units 08:30 10:53 11:23 WBC (3.8-10.6) k/uL RBC (4.30-5.90) m/uL Hgb (13.0-17.5) gm/dL Hct (39.0-53.0) % Neutrophils # (1.3-7.7) k/uL Lymphocytes # (1.0-4.8) k/uL PT (9.0-12.0) sec INR (<1.2) ABG pH (7.35-7.45) ABG pCO2 (35-45) mmHg ABG pO2 (83-108) mmHg ABG Total CO2 25 H 25 H (19-24) mmol/L ABG O2 Saturation 97.3 H 97.3 H (94-97) % ABG Ionized Calcium (4.5-5.3) mg/dL ABG Glucose 149 H 145 H 145 H (75-99) mg/dL Hemoglobin 12.4 L 12.1 L (13.0-17.5) gm/dL Chloride (98-107) mmol/L Creatinine (0.66-1.25) mg/dL Glucose (74-99) mg/dL POC Glucose (mg/dL) (70-110) mg/dL Calcium (8.4-10.2) mg/dL Total Bilirubin (0.2-1.3) mg/dL Total Protein (6.3-8.2) g/dL Albumin (3.5-5.0) g/dL Arterial Blood Glucose 149 H 145 H 145 H (75-99) mg/dL Crossmatch 11/09/22 11/09/22 11/09/22 Range/Units 11:55 13:02 13:03 WBC 14.5 H (3.8-10.6) k/uL RBC 3.61 L (4.30-5.90) m/uL Hgb 11.4 L D (13.0-17.5) gm/dL Hct 33.6 L (39.0-53.0) % Neutrophils # 12.3 H (1.3-7.7) k/uL Lymphocytes # (1.0-4.8) k/uL PT (9.0-12.0) sec INR (<1.2) ABG pH 7.34 L (7.35-7.45) ABG pCO2 (35-45) mmHg ABG pO2 (83-108) mmHg ABG Total CO2 (19-24) mmol/L ABG O2 Saturation (94-97) % ABG Ionized Calcium 4.4 L (4.5-5.3) mg/dL ABG Glucose 139 H (75-99) mg/dL Hemoglobin 11.2 L (13.0-17.5) gm/dL Chloride (98-107) mmol/L Creatinine (0.66-1.25) mg/dL Glucose (74-99) mg/dL POC Glucose (mg/dL) 138 H (70-110) mg/dL Calcium (8.4-10.2) mg/dL Total Bilirubin (0.2-1.3) mg/dL Total Protein (6.3-8.2) g/dL Albumin (3.5-5.0) g/dL Arterial Blood Glucose 139 H (75-99) mg/dL Crossmatch 11/09/22 11/09/22 11/09/22 Range/Units 13:03 13:03 13:35 WBC (3.8-10.6) k/uL RBC (4.30-5.90) m/uL Hgb (13.0-17.5) gm/dL Hct (39.0-53.0) % Neutrophils # (1.3-7.7) k/uL Lymphocytes # (1.0-4.8) k/uL PT 12.2 H (9.0-12.0) sec INR 1.2 H (<1.2) ABG pH (7.35-7.45) ABG pCO2 (35-45) mmHg ABG pO2 169 H (83-108) mmHg ABG Total CO2 25 H (19-24) mmol/L ABG O2 Saturation 99.2 H (94-97) % ABG Ionized Calcium (4.5-5.3) mg/dL ABG Glucose (75-99) mg/dL Hemoglobin (13.0-17.5) gm/dL Chloride (98-107) mmol/L Creatinine 0.58 L (0.66-1.25) mg/dL Glucose 128 H (74-99) mg/dL POC Glucose (mg/dL) (70-110) mg/dL Calcium 7.5 L (8.4-10.2) mg/dL Total Bilirubin 1.7 H (0.2-1.3) mg/dL Total Protein 5.5 L (6.3-8.2) g/dL Albumin (3.5-5.0) g/dL Arterial Blood Glucose (75-99) mg/dL Crossmatch 11/09/22 11/09/22 11/09/22 Range/Units 13:51 14:58 16:07 WBC (3.8-10.6) k/uL RBC (4.30-5.90) m/uL Hgb (13.0-17.5) gm/dL Hct (39.0-53.0) % Neutrophils # (1.3-7.7) k/uL Lymphocytes # (1.0-4.8) k/uL PT (9.0-12.0) sec INR (<1.2) ABG pH (7.35-7.45) ABG pCO2 (35-45) mmHg ABG pO2 (83-108) mmHg ABG Total CO2 (19-24) mmol/L ABG O2 Saturation (94-97) % ABG Ionized Calcium (4.5-5.3) mg/dL ABG Glucose (75-99) mg/dL Hemoglobin (13.0-17.5) gm/dL Chloride (98-107) mmol/L Creatinine (0.66-1.25) mg/dL Glucose (74-99) mg/dL POC Glucose (mg/dL) 132 H 133 H 152 H (70-110) mg/dL Calcium (8.4-10.2) mg/dL Total Bilirubin (0.2-1.3) mg/dL Total Protein (6.3-8.2) g/dL Albumin (3.5-5.0) g/dL Arterial Blood Glucose (75-99) mg/dL Crossmatch 11/09/22 11/09/22 11/09/22 Range/Units 16:08 18:00 19:00 WBC 11.7 H (3.8-10.6) k/uL RBC 3.85 L (4.30-5.90) m/uL Hgb 12.2 L (13.0-17.5) gm/dL Hct 36.1 L (39.0-53.0) % Neutrophils # 9.5 H (1.3-7.7) k/uL Lymphocytes # (1.0-4.8) k/uL PT (9.0-12.0) sec INR (<1.2) ABG pH (7.35-7.45) ABG pCO2 (35-45) mmHg ABG pO2 (83-108) mmHg ABG Total CO2 (19-24) mmol/L ABG O2 Saturation (94-97) % ABG Ionized Calcium (4.5-5.3) mg/dL ABG Glucose (75-99) mg/dL Hemoglobin (13.0-17.5) gm/dL Chloride (98-107) mmol/L Creatinine (0.66-1.25) mg/dL Glucose (74-99) mg/dL POC Glucose (mg/dL) 126 H 128 H (70-110) mg/dL Calcium (8.4-10.2) mg/dL Total Bilirubin (0.2-1.3) mg/dL Total Protein (6.3-8.2) g/dL Albumin (3.5-5.0) g/dL Arterial Blood Glucose (75-99) mg/dL Crossmatch 11/09/22 11/09/22 11/09/22 Range/Units 19:00 19:57 20:47 WBC 10.8 H (3.8-10.6) k/uL RBC 3.57 L (4.30-5.90) m/uL Hgb 11.4 L (13.0-17.5) gm/dL Hct 33.1 L (39.0-53.0) % Neutrophils # 9.2 H (1.3-7.7) k/uL Lymphocytes # 0.8 L (1.0-4.8) k/uL PT (9.0-12.0) sec INR (<1.2) ABG pH (7.35-7.45) ABG pCO2 (35-45) mmHg ABG pO2 74 L (83-108) mmHg ABG Total CO2 (19-24) mmol/L ABG O2 Saturation (94-97) % ABG Ionized Calcium (4.5-5.3) mg/dL ABG Glucose (75-99) mg/dL Hemoglobin (13.0-17.5) gm/dL Chloride (98-107) mmol/L Creatinine (0.66-1.25) mg/dL Glucose (74-99) mg/dL POC Glucose (mg/dL) 134 H (70-110) mg/dL Calcium (8.4-10.2) mg/dL Total Bilirubin (0.2-1.3) mg/dL Total Protein (6.3-8.2) g/dL Albumin (3.5-5.0) g/dL Arterial Blood Glucose (75-99) mg/dL Crossmatch 11/09/22 11/09/22 11/09/22 Range/Units 21:00 22:00 22:58 WBC (3.8-10.6) k/uL RBC (4.30-5.90) m/uL Hgb (13.0-17.5) gm/dL Hct (39.0-53.0) % Neutrophils # (1.3-7.7) k/uL Lymphocytes # (1.0-4.8) k/uL PT (9.0-12.0) sec INR (<1.2) ABG pH (7.35-7.45) ABG pCO2 (35-45) mmHg ABG pO2 (83-108) mmHg ABG Total CO2 (19-24) mmol/L ABG O2 Saturation (94-97) % ABG Ionized Calcium (4.5-5.3) mg/dL ABG Glucose (75-99) mg/dL Hemoglobin (13.0-17.5) gm/dL Chloride (98-107) mmol/L Creatinine (0.66-1.25) mg/dL Glucose (74-99) mg/dL POC Glucose (mg/dL) 130 H 121 H 120 H (70-110) mg/dL Calcium (8.4-10.2) mg/dL Total Bilirubin (0.2-1.3) mg/dL Total Protein (6.3-8.2) g/dL Albumin (3.5-5.0) g/dL Arterial Blood Glucose (75-99) mg/dL Crossmatch 11/09/22 11/10/22 11/10/22 Range/Units 23:50 00:55 01:57 WBC (3.8-10.6) k/uL RBC (4.30-5.90) m/uL Hgb (13.0-17.5) gm/dL Hct (39.0-53.0) % Neutrophils # (1.3-7.7) k/uL Lymphocytes # (1.0-4.8) k/uL PT (9.0-12.0) sec INR (<1.2) ABG pH (7.35-7.45) ABG pCO2 (35-45) mmHg ABG pO2 (83-108) mmHg ABG Total CO2 (19-24) mmol/L ABG O2 Saturation (94-97) % ABG Ionized Calcium (4.5-5.3) mg/dL ABG Glucose (75-99) mg/dL Hemoglobin (13.0-17.5) gm/dL Chloride (98-107) mmol/L Creatinine (0.66-1.25) mg/dL Glucose (74-99) mg/dL POC Glucose (mg/dL) 115 H 116 H 114 H (70-110) mg/dL Calcium (8.4-10.2) mg/dL Total Bilirubin (0.2-1.3) mg/dL Total Protein (6.3-8.2) g/dL Albumin (3.5-5.0) g/dL Arterial Blood Glucose (75-99) mg/dL Crossmatch 11/10/22 11/10/22 11/10/22 Range/Units 02:56 03:50 03:50 WBC (3.8-10.6) k/uL RBC 3.39 L (4.30-5.90) m/uL Hgb 11.1 L (13.0-17.5) gm/dL Hct 31.6 L (39.0-53.0) % Neutrophils # (1.3-7.7) k/uL Lymphocytes # (1.0-4.8) k/uL PT (9.0-12.0) sec INR (<1.2) ABG pH (7.35-7.45) ABG pCO2 (35-45) mmHg ABG pO2 (83-108) mmHg ABG Total CO2 (19-24) mmol/L ABG O2 Saturation (94-97) % ABG Ionized Calcium (4.5-5.3) mg/dL ABG Glucose (75-99) mg/dL Hemoglobin (13.0-17.5) gm/dL Chloride 108 H (98-107) mmol/L Creatinine 0.60 L (0.66-1.25) mg/dL Glucose (74-99) mg/dL POC Glucose (mg/dL) 113 H (70-110) mg/dL Calcium 7.9 L (8.4-10.2) mg/dL Total Bilirubin 2.4 H (0.2-1.3) mg/dL Total Protein 5.3 L (6.3-8.2) g/dL Albumin 3.4 L (3.5-5.0) g/dL Arterial Blood Glucose (75-99) mg/dL Crossmatch 11/10/22 11/10/22 Range/Units 05:52 06:57 WBC (3.8-10.6) k/uL RBC (4.30-5.90) m/uL Hgb (13.0-17.5) gm/dL Hct (39.0-53.0) % Neutrophils # (1.3-7.7) k/uL Lymphocytes # (1.0-4.8) k/uL PT (9.0-12.0) sec INR (<1.2) ABG pH (7.35-7.45) ABG pCO2 (35-45) mmHg ABG pO2 (83-108) mmHg ABG Total CO2 (19-24) mmol/L ABG O2 Saturation (94-97) % ABG Ionized Calcium (4.5-5.3) mg/dL ABG Glucose (75-99) mg/dL Hemoglobin (13.0-17.5) gm/dL Chloride (98-107) mmol/L Creatinine (0.66-1.25) mg/dL Glucose (74-99) mg/dL POC Glucose (mg/dL) 117 H 138 H (70-110) mg/dL Calcium (8.4-10.2) mg/dL Total Bilirubin (0.2-1.3) mg/dL Total Protein (6.3-8.2) g/dL Albumin (3.5-5.0) g/dL Arterial Blood Glucose (75-99) mg/dL Crossmatch - Imaging and Cardiology Chest x-ray: report reviewed, image reviewed Assessment and Plan Assessment: Coronary artery disease, status post four-vessel CABG History of hypertension Hyperlipidemia, treated, cholesterol 223, LDL 159, triglycerides 151 Single episode of syncope with unknown cause Tobacco dependence with recent cessation, preoperative FEV1 77% of predicted Stroke in 2021 with some residual right-sided weakness Family history of premature coronary artery disease with brother having open heart surgery in his 30s Intraoperative atrial fibrillation, currently sinus, status post ligation of the left atrial appendage Plan: Continue to maximize medical therapy with aspirin, statin, Plavix, beta patrick therapy. Will increase beta patrick as tolerated Continue calcium channel patrick for radial artery spasm prophylaxis, will transition to oral Continue amiodarone for A. fib prophylaxis, will transition to oral. No anticoagulation necessary at this point Wean O2 as tolerated. Encourage incentive spirometry use 10 times every hour while awake. Bronchodilators per pulmonology Increase activity, ambulate as tolerated. PT/OT/cardiac rehab consulted Will monitor daily labs and x-rays. Electrolyte replacement per protocol Pain control with current medication regimen Discontinue Chase. Connect Cordis to continuous CVP monitoring Patient is not diabetic, preoperative hemoglobin A1c 6.2%, however he does need tight blood sugar control to promote healing and prevent infection Continue chest tubes for another 24 hours Continue Davis catheter for another 24 hours for strict accurate intake and output, daily weights Necessary home medications ordered GI/DVT prophylaxis More recommendations to follow as patient progresses
[2022-11-10] MEDS ORDERED: PANTOPRAZOLE 40 MG/10 ML VIAL IVP SCH (09:00)
[2022-11-10] MEDS ORDERED: MAGNESIUM HYDROXIDE 2,400 MG/30 ML CUP PO PRN (09:00)
[2022-11-10] MEDS ORDERED: METOPROLOL TARTRATE 12.5 MG TAB PO SCH (09:00)
[2022-11-10] MEDS ORDERED: bisacodyL 10 MG SUPP RECTAL PRN (09:00)
[2022-11-10] MEDS: AMIODARONE 200 MG TAB PO SCH ×2 (09:20→16:57)
[2022-11-10] MEDS: HYDROcodone/APAP 10-325MG 1 EACH TAB PO PRN ×4 (09:20→21:55)
[2022-11-10] MEDS: PREGABALIN 75 MG CAP PO SCH ×2 (09:20→20:18)
[2022-11-10 09:35] LABS: Glucose,Whole Blood 139 mg/dL (70-110)
--- NOTE | 2022-11-10 10:17 | PN ---
PROGRESS NOTE SUBJECTIVE: Khoi is a 62-year-old gentleman, who underwent bypass surgery yesterday for multivessel coronary artery disease. Today is postop day #1. The patient is extubated on vent. Remains in sinus rhythm and is hemodynamically stable. OBJECTIVE: VITAL SIGNS: Heart rate is 60 beats per minute, blood pressure is 114/55, respiratory rate is 18. NECK: There is no jugular venous distention. Carotid upstroke is normal. There is no bruit. CHEST: Reveals diminished air entry at the bases. HEART: Reveals first and second heart sounds. No gallop. No murmur. ABDOMEN: Soft. EXTREMITIES: Did not reveal any edema. Peripheral pulses are felt. LABORATORY DATA: Labs show a hemoglobin of 11.1, platelet count is 160. The patient is currently on amiodarone because of an episode of atrial fibrillation that he had around surgery on Norvasc because of the radial artery graft, aspirin, Lipitor, Plavix, and Lopressor. ASSESSMENT AND PLAN: Coronary artery disease, status post coronary artery bypass graft, postop day #1. The patient is doing well. The patient will continue current medications. MMODL / IJN: [id number] /
[2022-11-10 11:31] VITALS: BMI 28.4
--- NOTE | 2022-11-10 11:55 | P.PN ---
Subjective Progress Note Date: 11/10/22 Principal diagnosis: status post CABG, postoperative day #1 This is a 62-year-old male patient with a known history of chronic tobacco dependence, hypertension, hyperlipidemia, CVA with some right-sided weakness right-sided facial droop right forearm numbness residuals. He was having issues with fatigue and chest discomfort and had undergone cardiac catheterization 10/25/2022 and was found to have severe coronary artery disease including a proximal LAD of 50% stenosis, mid LAD 50-60. Stenosis, proximal circumflex of 80% with a 90-100% mid circumflex lesion. He's also had 100% ostial OM1 stenosis and a nondominant RCA 99%. He was recommended coronary artery bypass grafting was brought in today electively for the surgery. He had undergone an off-pump coronary artery bypass grafting 4 with a sequential MCPHERSON to the first diagonal and LAD, left radial artery graft to the second obtuse marginal, saphenous vein graft to the posterior descending/circumflex. He is seen in the intensive care unit. Currently on the mechanical ventilator in assist control mode at a rate of 14, tidal volume 500, FiO2 of 60% and a PEEP of 5. Arterial blood gases on 100% FiO2 revealed a PaO2 of 169, pCO2 43, pH 7.35. He is currently sedated on propofol at 45 mcg/kg/m. He is requiring nitroglycerin drip at 5 mg/m. Cardizem drip at 5 mg per hour insulin drip at 1 unit per hour. Amiodarone at 1 mg/m. Lactated Ringer's at 50 MLS per hour. Current cardiac output is 5.2. Cardiac index 2.9. PA pressure 29/13. CVP 7. He has a right IJ Atkinson-John catheter in place. Right radial arterial line in place. Mediastinal and left pleural chest tubes in place. White count 14.5. Hemoglobin 11.4. Platelets 175. INR 1.2. Sodium 140. Potassium 3.6. Bicarb 22. BUN 19. Creatinine 0.58. Glucose 128. He is on DuoNeb inhalations. Heparin for DVT prophylaxis. POD #1 off-pump coronary artery bypass grafting 4 with sequential left internal mammary artery to the first diagonal and left anterior descending artery, left radial artery graft to the second obtuse marginal artery, reverse saphenous vein graft to the posterior descending (circumflex), ligation of the left atrial appendage with 35 mm AtriCure clip, endovascular vein harvest, endovascular radial artery harvest. Patient was reevaluated today on 11/10/2022, he was extubated a few hours after he was in the ICU last night. Patient is now on 4 L nasal cannula, he is on insulin 2 units per hour, he is also receiving albumin 4 soft blood pressure, lactated Ringer's at 50 mL per hour. Patient is relatively asymptomatic, does not seem to be in any distress. Pain seems to be reasonably controlledchest x-ray showed mostly postoperative changes ,small left-sided subcutaneous emphysema is noted, left-sided chest tube is noted in place. There is no evidence of pneumothorax.labs are unremarkable WBC count 7.2 hemoglobin is 11.1, basic metabolic profile is normal renal profile is normal Objective - Vital Signs Vital signs: Vital Signs Temp 99.1 F 11/10/22 08:00 Pulse 60 11/10/22 11:00 Resp 24 11/10/22 11:00 BP 136/80 11/09/22 06:20 Pulse Ox 90 L 11/10/22 11:00 FiO2 70 11/10/22 00:00 Intake & Output 11/09/22 11/10/22 11/10/22 18:59 06:59 18:59 Intake Total 264.331 9653.078 203.657 Output Total 2340 2315 180 Balance -1425.525 -485.922 23.657 Weight 77.6 kg 77.6 kg Intake: IV 257 1722 203 .9NS Cardiac Output 50 120 20 0.9NS Pressure Bag 54 102 33 ACETAMINOPHEN IV (For NPO 100 ) 1,000 mg In Empty Bag 1 bag @ 400 mls/hr IVPB Q6HR [facility] Rx#:[id number] Albumin Human 5% 250 ml 750 In Empty Bag 1 bag @ 250 mls/hr IVPB Q1HR PRN Rx#: [id number] Lactated Ringers 1,000 ml 550 150 @ 20 mls/hr IV .Q24H [facility] Rx#:[id number] Potassium Chloride 10 meq 200 In Water For Injection 1 100ml.bag @ 100 mls/hr IVPB Q1H [facility] Rx#: [id number] Intake, IV Titration 657.475 107.078 0.657 Amount Clevidipine Butyrate 25 9.333 mg In Empty Bag 1 bag @ 1 MG/HR 2 mls/hr IV .Q24H [facility] Rx#:[id number] Dexmedetomidine/0.9% NaCl 21.865 (Pmx) 400 mcg In Empty Bag 1 bag @ Titrate IV . Q0M [facility] Rx#:[id number] Insulin Regular 100 unit 5.412 7.078 0.657 In Sodium Chloride 0.9% 100 ml @ Per Protocol IV .Q0M [facility] Rx#:[id number] Lactated Ringers 1,000 ml 300 @ 20 mls/hr IV .Q24H [facility] Rx#:[id number] Potassium Chloride 10 meq 200 In Water For Injection 1 100ml.bag @ 100 mls/hr IVPB Q1H [facility] Rx#: [id number] Potassium Chloride 10 meq 100 In Water For Injection 1 100ml.bag @ 100 mls/hr IVPB Q1H [facility] Rx#: [id number] ceFAZolin 2 gm In Sodium 50 Chloride 0.9% 50 ml @ 100 mls/hr IVPB Q8HR [facility] Rx# :[id number] propofoL 1,000 mg In 70.865 Empty Bag 1 bag @ Titrate IV .Q0M [facility] Rx#: [id number] Output: Chest Tube Drainage 360 570 60 Mediastinal and Left 360 570 60 Pleural Urine 1180 1745 120 Estimated Blood Loss 800 Other: Voiding Method Indwelling Catheter Indwelling Catheter ABP, PAP, CO, CI - Last Documented Arterial Blood Pressure 108/50 Pulmonary Artery Pressure 30/6 Cardiac Output 5 Cardiac Index 2.8 - Exam Physical Exam: Revealed 62-year-old white male in no distress. On 4 L nasal cannula. Head: Atraumatic, normocephalic.a right internal jugular Atkinson-John catheter is noted HEENT:[Neck is supple.] [No neck masses.] [No thyromegaly.] [No JVD.] Chest: [Clear throughout, no crackles, no rhonchi, no wheezes.]mediastinal/left pleural chest tube present, connected to wall suction, no air leak noted. AV epicardial pacemaker wire is noted. Cardiac Exam: [Normal S1 and S2, no S3 gallop, no murmur.] Abdomen: [Soft, nontender, no megaly, no rebound, no guarding, normal bowel sounds.] Extremities: [No clubbing, no edema, no cyanosis.] Neurological Exam: [No focal neurologic deficit.] alert and oriented 3. Psychiatric: Normal mood affect and normal mental status examination. - Labs CBC & Chem 7: 11/10/22 03:50 11/10/22 03:50 Labs: Abnormal Lab Results - Last 24 Hours (Table) 11/06/22 11/09/22 11/09/22 Range/Units 09:09 08:30 08:30 WBC (3.8-10.6) k/uL RBC (4.30-5.90) m/uL Hgb (13.0-17.5) gm/dL Hct (39.0-53.0) % Neutrophils # (1.3-7.7) k/uL Lymphocytes # (1.0-4.8) k/uL PT (9.0-12.0) sec INR (<1.2) ABG pH (7.35-7.45) ABG pCO2 46 H (35-45) mmHg ABG pO2 247 H (83-108) mmHg ABG Total CO2 26 H 26 H (19-24) mmol/L ABG O2 Saturation 99.1 H 97.1 H (94-97) % ABG Ionized Calcium (4.5-5.3) mg/dL ABG Glucose 123 H 144 H (75-99) mg/dL Hemoglobin (13.0-17.5) gm/dL Chloride (98-107) mmol/L Creatinine (0.66-1.25) mg/dL Glucose (74-99) mg/dL POC Glucose (mg/dL) (70-110) mg/dL Calcium (8.4-10.2) mg/dL Total Bilirubin (0.2-1.3) mg/dL Total Protein (6.3-8.2) g/dL Albumin (3.5-5.0) g/dL Arterial Blood Glucose 123 H 144 H (75-99) mg/dL Crossmatch See Detail 11/09/22 11/09/22 11/09/22 Range/Units 08:30 10:53 11:23 WBC (3.8-10.6) k/uL RBC (4.30-5.90) m/uL Hgb (13.0-17.5) gm/dL Hct (39.0-53.0) % Neutrophils # (1.3-7.7) k/uL Lymphocytes # (1.0-4.8) k/uL PT (9.0-12.0) sec INR (<1.2) ABG pH (7.35-7.45) ABG pCO2 (35-45) mmHg ABG pO2 (83-108) mmHg ABG Total CO2 25 H 25 H (19-24) mmol/L ABG O2 Saturation 97.3 H 97.3 H (94-97) % ABG Ionized Calcium (4.5-5.3) mg/dL ABG Glucose 149 H 145 H 145 H (75-99) mg/dL Hemoglobin 12.4 L 12.1 L (13.0-17.5) gm/dL Chloride (98-107) mmol/L Creatinine (0.66-1.25) mg/dL Glucose (74-99) mg/dL POC Glucose (mg/dL) (70-110) mg/dL Calcium (8.4-10.2) mg/dL Total Bilirubin (0.2-1.3) mg/dL Total Protein (6.3-8.2) g/dL Albumin (3.5-5.0) g/dL Arterial Blood Glucose 149 H 145 H 145 H (75-99) mg/dL Crossmatch 11/09/22 11/09/22 11/09/22 Range/Units 11:55 13:02 13:03 WBC 14.5 H (3.8-10.6) k/uL RBC 3.61 L (4.30-5.90) m/uL Hgb 11.4 L D (13.0-17.5) gm/dL Hct 33.6 L (39.0-53.0) % Neutrophils # 12.3 H (1.3-7.7) k/uL Lymphocytes # (1.0-4.8) k/uL PT (9.0-12.0) sec INR (<1.2) ABG pH 7.34 L (7.35-7.45) ABG pCO2 (35-45) mmHg ABG pO2 (83-108) mmHg ABG Total CO2 (19-24) mmol/L ABG O2 Saturation (94-97) % ABG Ionized Calcium 4.4 L (4.5-5.3) mg/dL ABG Glucose 139 H (75-99) mg/dL Hemoglobin 11.2 L (13.0-17.5) gm/dL Chloride (98-107) mmol/L Creatinine (0.66-1.25) mg/dL Glucose (74-99) mg/dL POC Glucose (mg/dL) 138 H (70-110) mg/dL Calcium (8.4-10.2) mg/dL Total Bilirubin (0.2-1.3) mg/dL Total Protein (6.3-8.2) g/dL Albumin (3.5-5.0) g/dL Arterial Blood Glucose 139 H (75-99) mg/dL Crossmatch 11/09/22 11/09/22 11/09/22 Range/Units 13:03 13:03 13:35 WBC (3.8-10.6) k/uL RBC (4.30-5.90) m/uL Hgb (13.0-17.5) gm/dL Hct (39.0-53.0) % Neutrophils # (1.3-7.7) k/uL Lymphocytes # (1.0-4.8) k/uL PT 12.2 H (9.0-12.0) sec INR 1.2 H (<1.2) ABG pH (7.35-7.45) ABG pCO2 (35-45) mmHg ABG pO2 169 H (83-108) mmHg ABG Total CO2 25 H (19-24) mmol/L ABG O2 Saturation 99.2 H (94-97) % ABG Ionized Calcium (4.5-5.3) mg/dL ABG Glucose (75-99) mg/dL Hemoglobin (13.0-17.5) gm/dL Chloride (98-107) mmol/L Creatinine 0.58 L (0.66-1.25) mg/dL Glucose 128 H (74-99) mg/dL POC Glucose (mg/dL) (70-110) mg/dL Calcium 7.5 L (8.4-10.2) mg/dL Total Bilirubin 1.7 H (0.2-1.3) mg/dL Total Protein 5.5 L (6.3-8.2) g/dL Albumin (3.5-5.0) g/dL Arterial Blood Glucose (75-99) mg/dL Crossmatch 11/09/22 11/09/22 11/09/22 Range/Units 13:51 14:58 16:07 WBC (3.8-10.6) k/uL RBC (4.30-5.90) m/uL Hgb (13.0-17.5) gm/dL Hct (39.0-53.0) % Neutrophils # (1.3-7.7) k/uL Lymphocytes # (1.0-4.8) k/uL PT (9.0-12.0) sec INR (<1.2) ABG pH (7.35-7.45) ABG pCO2 (35-45) mmHg ABG pO2 (83-108) mmHg ABG Total CO2 (19-24) mmol/L ABG O2 Saturation (94-97) % ABG Ionized Calcium (4.5-5.3) mg/dL ABG Glucose (75-99) mg/dL Hemoglobin (13.0-17.5) gm/dL Chloride (98-107) mmol/L Creatinine (0.66-1.25) mg/dL Glucose (74-99) mg/dL POC Glucose (mg/dL) 132 H 133 H 152 H (70-110) mg/dL Calcium (8.4-10.2) mg/dL Total Bilirubin (0.2-1.3) mg/dL Total Protein (6.3-8.2) g/dL Albumin (3.5-5.0) g/dL Arterial Blood Glucose (75-99) mg/dL Crossmatch 11/09/22 11/09/22 11/09/22 Range/Units 16:08 18:00 19:00 WBC 11.7 H (3.8-10.6) k/uL RBC 3.85 L (4.30-5.90) m/uL Hgb 12.2 L (13.0-17.5) gm/dL Hct 36.1 L (39.0-53.0) % Neutrophils # 9.5 H (1.3-7.7) k/uL Lymphocytes # (1.0-4.8) k/uL PT (9.0-12.0) sec INR (<1.2) ABG pH (7.35-7.45) ABG pCO2 (35-45) mmHg ABG pO2 (83-108) mmHg ABG Total CO2 (19-24) mmol/L ABG O2 Saturation (94-97) % ABG Ionized Calcium (4.5-5.3) mg/dL ABG Glucose (75-99) mg/dL Hemoglobin (13.0-17.5) gm/dL Chloride (98-107) mmol/L Creatinine (0.66-1.25) mg/dL Glucose (74-99) mg/dL POC Glucose (mg/dL) 126 H 128 H (70-110) mg/dL Calcium (8.4-10.2) mg/dL Total Bilirubin (0.2-1.3) mg/dL Total Protein (6.3-8.2) g/dL Albumin (3.5-5.0) g/dL Arterial Blood Glucose (75-99) mg/dL Crossmatch 11/09/22 11/09/22 11/09/22 Range/Units 19:00 19:57 20:47 WBC 10.8 H (3.8-10.6) k/uL RBC 3.57 L (4.30-5.90) m/uL Hgb 11.4 L (13.0-17.5) gm/dL Hct 33.1 L (39.0-53.0) % Neutrophils # 9.2 H (1.3-7.7) k/uL Lymphocytes # 0.8 L (1.0-4.8) k/uL PT (9.0-12.0) sec INR (<1.2) ABG pH (7.35-7.45) ABG pCO2 (35-45) mmHg ABG pO2 74 L (83-108) mmHg ABG Total CO2 (19-24) mmol/L ABG O2 Saturation (94-97) % ABG Ionized Calcium (4.5-5.3) mg/dL ABG Glucose (75-99) mg/dL Hemoglobin (13.0-17.5) gm/dL Chloride (98-107) mmol/L Creatinine (0.66-1.25) mg/dL Glucose (74-99) mg/dL POC Glucose (mg/dL) 134 H (70-110) mg/dL Calcium (8.4-10.2) mg/dL Total Bilirubin (0.2-1.3) mg/dL Total Protein (6.3-8.2) g/dL Albumin (3.5-5.0) g/dL Arterial Blood Glucose (75-99) mg/dL Crossmatch 11/09/22 11/09/22 11/09/22 Range/Units 21:00 22:00 22:58 WBC (3.8-10.6) k/uL RBC (4.30-5.90) m/uL Hgb (13.0-17.5) gm/dL Hct (39.0-53.0) % Neutrophils # (1.3-7.7) k/uL Lymphocytes # (1.0-4.8) k/uL PT (9.0-12.0) sec INR (<1.2) ABG pH (7.35-7.45) ABG pCO2 (35-45) mmHg ABG pO2 (83-108) mmHg ABG Total CO2 (19-24) mmol/L ABG O2 Saturation (94-97) % ABG Ionized Calcium (4.5-5.3) mg/dL ABG Glucose (75-99) mg/dL Hemoglobin (13.0-17.5) gm/dL Chloride (98-107) mmol/L Creatinine (0.66-1.25) mg/dL Glucose (74-99) mg/dL POC Glucose (mg/dL) 130 H 121 H 120 H (70-110) mg/dL Calcium (8.4-10.2) mg/dL Total Bilirubin (0.2-1.3) mg/dL Total Protein (6.3-8.2) g/dL Albumin (3.5-5.0) g/dL Arterial Blood Glucose (75-99) mg/dL Crossmatch 11/09/22 11/10/22 11/10/22 Range/Units 23:50 00:55 01:57 WBC (3.8-10.6) k/uL RBC (4.30-5.90) m/uL Hgb (13.0-17.5) gm/dL Hct (39.0-53.0) % Neutrophils # (1.3-7.7) k/uL Lymphocytes # (1.0-4.8) k/uL PT (9.0-12.0) sec INR (<1.2) ABG pH (7.35-7.45) ABG pCO2 (35-45) mmHg ABG pO2 (83-108) mmHg ABG Total CO2 (19-24) mmol/L ABG O2 Saturation (94-97) % ABG Ionized Calcium (4.5-5.3) mg/dL ABG Glucose (75-99) mg/dL Hemoglobin (13.0-17.5) gm/dL Chloride (98-107) mmol/L Creatinine (0.66-1.25) mg/dL Glucose (74-99) mg/dL POC Glucose (mg/dL) 115 H 116 H 114 H (70-110) mg/dL Calcium (8.4-10.2) mg/dL Total Bilirubin (0.2-1.3) mg/dL Total Protein (6.3-8.2) g/dL Albumin (3.5-5.0) g/dL Arterial Blood Glucose (75-99) mg/dL Crossmatch 11/10/22 11/10/22 11/10/22 Range/Units 02:56 03:50 03:50 WBC (3.8-10.6) k/uL RBC 3.39 L (4.30-5.90) m/uL Hgb 11.1 L (13.0-17.5) gm/dL Hct 31.6 L (39.0-53.0) % Neutrophils # (1.3-7.7) k/uL Lymphocytes # (1.0-4.8) k/uL PT (9.0-12.0) sec INR (<1.2) ABG pH (7.35-7.45) ABG pCO2 (35-45) mmHg ABG pO2 (83-108) mmHg ABG Total CO2 (19-24) mmol/L ABG O2 Saturation (94-97) % ABG Ionized Calcium (4.5-5.3) mg/dL ABG Glucose (75-99) mg/dL Hemoglobin (13.0-17.5) gm/dL Chloride 108 H (98-107) mmol/L Creatinine 0.60 L (0.66-1.25) mg/dL Glucose (74-99) mg/dL POC Glucose (mg/dL) 113 H (70-110) mg/dL Calcium 7.9 L (8.4-10.2) mg/dL Total Bilirubin 2.4 H (0.2-1.3) mg/dL Total Protein 5.3 L (6.3-8.2) g/dL Albumin 3.4 L (3.5-5.0) g/dL Arterial Blood Glucose (75-99) mg/dL Crossmatch 11/10/22 11/10/22 11/10/22 Range/Units 05:52 06:57 08:11 WBC (3.8-10.6) k/uL RBC (4.30-5.90) m/uL Hgb (13.0-17.5) gm/dL Hct (39.0-53.0) % Neutrophils # (1.3-7.7) k/uL Lymphocytes # (1.0-4.8) k/uL PT (9.0-12.0) sec INR (<1.2) ABG pH (7.35-7.45) ABG pCO2 (35-45) mmHg ABG pO2 (83-108) mmHg ABG Total CO2 (19-24) mmol/L ABG O2 Saturation (94-97) % ABG Ionized Calcium (4.5-5.3) mg/dL ABG Glucose (75-99) mg/dL Hemoglobin (13.0-17.5) gm/dL Chloride (98-107) mmol/L Creatinine (0.66-1.25) mg/dL Glucose (74-99) mg/dL POC Glucose (mg/dL) 117 H 138 H 179 H (70-110) mg/dL Calcium (8.4-10.2) mg/dL Total Bilirubin (0.2-1.3) mg/dL Total Protein (6.3-8.2) g/dL Albumin (3.5-5.0) g/dL Arterial Blood Glucose (75-99) mg/dL Crossmatch 11/10/22 Range/Units 09:27 WBC (3.8-10.6) k/uL RBC (4.30-5.90) m/uL Hgb (13.0-17.5) gm/dL Hct (39.0-53.0) % Neutrophils # (1.3-7.7) k/uL Lymphocytes # (1.0-4.8) k/uL PT (9.0-12.0) sec INR (<1.2) ABG pH (7.35-7.45) ABG pCO2 (35-45) mmHg ABG pO2 (83-108) mmHg ABG Total CO2 (19-24) mmol/L ABG O2 Saturation (94-97) % ABG Ionized Calcium (4.5-5.3) mg/dL ABG Glucose (75-99) mg/dL Hemoglobin (13.0-17.5) gm/dL Chloride (98-107) mmol/L Creatinine (0.66-1.25) mg/dL Glucose (74-99) mg/dL POC Glucose (mg/dL) 139 H (70-110) mg/dL Calcium (8.4-10.2) mg/dL Total Bilirubin (0.2-1.3) mg/dL Total Protein (6.3-8.2) g/dL Albumin (3.5-5.0) g/dL Arterial Blood Glucose (75-99) mg/dL Crossmatch Assessment and Plan Assessment: impression: Coronary artery disease, status post four-vessel CABG, postoperative day #1. Benign essential hypertension. Tobacco dependence syndrome. History of CVA and minimal residual right-sided weakness Intraoperative atrial fibrillation, presently in sinus rhythm. Dyslipidemia. Recommendation: Continue present supportive care measures Continue aspirin statins and Plavix beta blockers Wean oxygen as tolerated and titrate FiO2 down. incentive spirometry Early ambulation. GI and DVT prophylaxis. Discontinue early unnecessary catheters and tubings. Daily x-rays of the chest while inpatient We will continue to follow. Time with Patient: Less than 30
[2022-11-10 12:02] LABS: Glucose,Whole Blood 125 mg/dL (70-110)
[2022-11-10] MEDS: LACTATED RINGERS 1,000 ML IV SCH (13:07)
[2022-11-10] MEDS: amLODIPine 2.5 MG TAB PO SCH (13:11)
[2022-11-10] MEDS: INSULIN ASPART (NovoLOG) 100 UNIT/ML VIAL SQ SCH ×3 (13:12→20:40)
[2022-11-10] MEDS ORDERED: MD COMMUNICATION TO PHARMACY 1 EACH MISC PO PRN (13:46)
[2022-11-10 16:53] LABS: Glucose,Whole Blood 123 mg/dL (70-110)
[2022-11-10 16:53] LABS: Glucose,Whole Blood 93 mg/dL (70-110)
[2022-11-10] MEDS: ATORVASTATIN 80 MG TAB PO SCH (20:18)
[2022-11-10 20:40] LABS: Glucose,Whole Blood 175 mg/dL (70-110)
[2022-11-10] MEDS: SENNOSIDES-DOCUSATE SODIUM 1 EACH TAB PO SCH (21:55)
[2022-11-11] MEDS: AMIODARONE 200 MG TAB PO SCH ×4 (00:08→23:03)
[2022-11-11] MEDS: KETOROLAC 15 MG/ML 1 ML VIAL IVP SCH ×5 (00:08→23:04)
[2022-11-11] MEDS: HEPARIN SODIUM,PORCINE/PF 5,000 UNIT/0.5 ML SYRINGE SQ SCH ×4 (00:08→23:03)
[2022-11-11] MEDS: HYDROcodone/APAP 10-325MG 1 EACH TAB PO PRN (04:24)
[2022-11-11 06:05] LABS: Basophils % (A) 0 %; Eosinophils # (A) 0.2 k/uL (0-0.7); Eosinophils % (A) 2 %; HCT 33.8 % (39.0-53.0); HGB 11.4 gm/dL (13.0-17.5); Lymphocytes # (A) 0.9 k/uL (1.0-4.8); Lymphocytes % (A) 10 %; MCH 31.9 pg (25.0-35.0); MCHC 33.6 g/dL (31.0-37.0); MCV 94.9 fL (80.0-100.0); Mean Platelet Volume 10.7; Monocytes # (A) 0.8 k/uL (0-1.0); Monocytes % (A) 9 %; Neutrophils % (A) 78 %; Platelet Count 147 k/uL (150-450); RBC 3.56 m/uL (4.30-5.90); RDW 14.3 % (11.5-15.5)
[2022-11-11 06:09] LABS: Ionized Calcium 5.1 mg/dL (4.5-5.3)
[2022-11-11 06:11] LABS: Glucose,Whole Blood 159 mg/dL (70-110)
[2022-11-11] MEDS: INSULIN ASPART (NovoLOG) 100 UNIT/ML VIAL SQ SCH ×4 (06:15→20:05)
[2022-11-11] MEDS: PANTOPRAZOLE 40 MG TABLET PO SCH (06:16)
[2022-11-11 06:19] LABS: ALT 12 U/L (4-49); AST 28 U/L (17-59); African American GFR (CKD) >90 (>60 ml/min/1.73 sqM); Albumin 3.1 g/dL (3.5-5.0); Alkaline Phosphatase 51 U/L (38-126); Anion Gap 6 mmol/L; Blood Urea Nitrogen 14 mg/dL (9-20); Calcium 8.2 mg/dL (8.4-10.2); Carbon Dioxide 23 mmol/L (22-30); Chloride 106 mmol/L (98-107); Glucose 147 mg/dL (74-99); Non-African American GFR(CKD) >90 (>60 ml/min/1.73 sqM); Potassium 4.4 mmol/L (3.5-5.1); Sodium 135 mmol/L (137-145); Total Bilirubin 1.6 mg/dL (0.2-1.3); Total Protein 5.2 g/dL (6.3-8.2)
[2022-11-11] MEDS: IPRATROPIUM-ALBUTEROL 3 ML NEB INHALATION SCH ×4 (07:41→21:26)
--- NOTE | 2022-11-11 07:57 | P.PN ---
Subjective Progress Note Date: 11/11/22 Principal diagnosis: Coronary artery disease. Previous medical history of hypertension, hyperlipidemia, single episode of syncope with unknown cause, tobacco dependence with recent cessation, stroke in 2021 with some residual right-sided weakness, and family history of premature coronary artery disease with brother having open heart surgery in his 30s POD #2 off-pump coronary artery bypass grafting 4 with sequential left internal mammary artery to the first diagonal and left anterior descending artery, left radial artery graft to the second obtuse marginal artery, reverse saphenous vein graft to the posterior descending (circumflex), ligation of the left atrial appendage with 35 mm AtriCure clip, endovascular vein harvest, endovascular radial artery harvest Intraoperative atrial fibrillation, currently sinus The patient was seen and examined this morning sitting up in a in the intensive care unit in no acute distress. States pain is controlled on current medication regimen, denies shortness of breath. Remains in sinus rhythm, hemodynamically stable although he did not receive any beta patrick or calcium channel patrick yesterday. The patient has ambulated multiple times in the hallway without difficulty. Remains on 4 L nasal cannula. Right internal jugular cordis, right radial arterial line, mediastinal/left pleural chest tubes all remain. Chest x- ray, labs reviewed. No other new concerns. Objective - Vital Signs Vital signs: Vital Signs Temp 98.8 F 11/11/22 04:00 Pulse 80 11/11/22 07:41 Resp 20 11/11/22 07:00 BP 110/75 11/10/22 18:00 Pulse Ox 92 L 11/11/22 07:44 FiO2 70 11/10/22 00:00 Intake & Output 11/10/22 11/11/22 11/11/22 18:59 06:59 18:59 Intake Total 653.620 0712 26 Output Total 1365 1555 25 Balance -793.343 -413 1 Weight 77.6 kg 79.4 kg Intake: IV 571 362 26 .9NS Cardiac Output 20 0.9NS Pressure Bag 81 72 6 Lactated Ringers 1,000 ml 470 290 20 @ 20 mls/hr IV .Q24H [facility] Rx#:[id number] Intake, IV Titration 0.657 Amount Insulin Regular 100 unit 0.657 In Sodium Chloride 0.9% 100 ml @ Per Protocol IV .Q0M [facility] Rx#:[id number] Oral 780 Output: Chest Tube Drainage 270 270 Mediastinal and Left 270 270 Pleural Urine 1095 1285 25 Other: Voiding Method Indwelling Catheter Indwelling Catheter ABP, PAP, CO, CI - Last Documented Arterial Blood Pressure 117/56 Pulmonary Artery Pressure 30/6 Cardiac Output 5 Cardiac Index 2.8 - Exam CONSTITUTIONAL: Appears comfortable, cooperative, no acute distress RESPIRATORY: Lungs sounds diminished bilaterally. Respirations even, nonlabored. Currently on 4 L nasal cannula with oxygen saturation 93%. Able to achieve 1000 mL on incentive spirometry. Strong cough. CARDIOVASCULAR: S1, S2 present. Regular rate and rhythm, sinus rhythm on telemetry. Sternum stable. Palpable peripheral pulses bilaterally. No edema present. No calf pain or tenderness noted. Heart hugger in place with patient demonstrating appropriate use. Antiembolism stockings, SCDs present. GASTROINTESTINAL: Abdomen soft, nontender, nondistended. Active bowel sounds present 4 quadrants. Tolerating diet. Positive flatus GENITOURINARY: Davis present draining clear, yellow urine. Output overnight 50-75 mL per hour, 2380 mL in the last 24 hours INTEGUMENTARY: Skin is warm and dry with evidence of good perfusion. Anterior chest incision well approximated and covered with dry intact dressing. Left lower extremity EVH site and left radial artery harvest site well approximated without redness or drainage. NEUROLOGIC: Cranial nerves II through XII intact MUSKULOSKELETAL: Able to move all extremities, strength equal bilaterally, gait normal PSYCHIATRIC: Alert and oriented to person place and time, appropriate affect, intact judgment and insight INVASIVE LINES AND TUBES: Mediastinal/left pleural chest tubes present and connected to wall suction, no air leaks present, 190 mL serosanguineous drainage overnight, 600 mL in the last 24 hours. A/V epicardial pacemaker wires present, connected to generator, backup rate 50 bpm. Right internal jugular cordis, right radial arterial line present. Last CVP 2. - Labs CBC & Chem 7: 11/11/22 04:45 11/11/22 04:45 Labs: Abnormal Lab Results - Last 24 Hours (Table) 11/06/22 11/10/22 11/10/22 Range/Units 09:09 08:11 09:27 RBC (4.30-5.90) m/uL Hgb (13.0-17.5) gm/dL Hct (39.0-53.0) % Plt Count (150-450) k/uL Lymphocytes # (1.0-4.8) k/uL Sodium (137-145) mmol/L Glucose (74-99) mg/dL POC Glucose (mg/dL) 179 H 139 H (70-110) mg/dL Calcium (8.4-10.2) mg/dL Total Bilirubin (0.2-1.3) mg/dL Total Protein (6.3-8.2) g/dL Albumin (3.5-5.0) g/dL Crossmatch See Detail 11/10/22 11/10/22 11/10/22 Range/Units 12:00 16:51 20:39 RBC (4.30-5.90) m/uL Hgb (13.0-17.5) gm/dL Hct (39.0-53.0) % Plt Count (150-450) k/uL Lymphocytes # (1.0-4.8) k/uL Sodium (137-145) mmol/L Glucose (74-99) mg/dL POC Glucose (mg/dL) 125 H 123 H 175 H (70-110) mg/dL Calcium (8.4-10.2) mg/dL Total Bilirubin (0.2-1.3) mg/dL Total Protein (6.3-8.2) g/dL Albumin (3.5-5.0) g/dL Crossmatch 11/11/22 11/11/22 11/11/22 Range/Units 04:45 04:45 06:09 RBC 3.56 L (4.30-5.90) m/uL Hgb 11.4 L (13.0-17.5) gm/dL Hct 33.8 L (39.0-53.0) % Plt Count 147 L (150-450) k/uL Lymphocytes # 0.9 L (1.0-4.8) k/uL Sodium 135 L (137-145) mmol/L Glucose 147 H (74-99) mg/dL POC Glucose (mg/dL) 159 H (70-110) mg/dL Calcium 8.2 L (8.4-10.2) mg/dL Total Bilirubin 1.6 H (0.2-1.3) mg/dL Total Protein 5.2 L (6.3-8.2) g/dL Albumin 3.1 L (3.5-5.0) g/dL Crossmatch Assessment and Plan Assessment: Coronary artery disease, status post four-vessel CABG History of hypertension Hyperlipidemia, treated, cholesterol 223, LDL 159, triglycerides 151 Single episode of syncope with unknown cause Tobacco dependence with recent cessation, preoperative FEV1 77% of predicted Stroke in 2021 with some residual right-sided weakness Family history of premature coronary artery disease with brother having open heart surgery in his 30s Intraoperative atrial fibrillation, currently sinus, status post ligation of the left atrial appendage Plan: Continue to maximize medical therapy with aspirin, statin, Plavix, beta patrick therapy Continue calcium channel patrick for radial artery spasm prophylaxis, parameters placed Continue amiodarone for A. fib prophylaxis. No anticoagulation necessary at this point Wean O2 as tolerated. Encourage incentive spirometry use 10 times every hour while awake. Bronchodilators per pulmonology Increase activity, ambulate as tolerated. PT/OT/cardiac rehab consulted Will monitor daily labs and x-rays. Electrolyte replacement per protocol. No lasix today Pain control with current medication regimen Discontinue cordis, arterial line Patient is not diabetic, preoperative hemoglobin A1c 6.2%, however he does need tight blood sugar control to promote healing and prevent infection Will discontinue chest tubes Discontinue Davis catheter, may bladder scan and straight cath for >300mL residual Strict accurate intake and output, daily weights GI/DVT prophylaxis If tolerates all meds today (including beta patrick) will likely transfer out of ICU tomorrow More recommendations to follow as patient progresses
[2022-11-11] MEDS: CLOPIDOGREL 75 MG TAB PO SCH (08:45)
[2022-11-11] MEDS: PREGABALIN 75 MG CAP PO SCH ×2 (08:45→20:04)
[2022-11-11] MEDS: METOPROLOL TARTRATE 12.5 MG TAB PO SCH ×2 (08:45→20:04)
[2022-11-11] MEDS: ASPIRIN 325 MG TAB PO SCH (08:45)
--- NOTE | 2022-11-11 09:23 | P.PN ---
Subjective Progress Note Date: 11/11/22 Principal diagnosis: status post CABG, postoperative day #2 This is a 62-year-old male patient with a known history of chronic tobacco dependence, hypertension, hyperlipidemia, CVA with some right-sided weakness right-sided facial droop right forearm numbness residuals. He was having issues with fatigue and chest discomfort and had undergone cardiac catheterization 10/25/2022 and was found to have severe coronary artery disease including a proximal LAD of 50% stenosis, mid LAD 50-60. Stenosis, proximal circumflex of 80% with a 90-100% mid circumflex lesion. He's also had 100% ostial OM1 stenosis and a nondominant RCA 99%. He was recommended coronary artery bypass grafting was brought in today electively for the surgery. He had undergone an off-pump coronary artery bypass grafting 4 with a sequential MCPHERSON to the first diagonal and LAD, left radial artery graft to the second obtuse marginal, saphenous vein graft to the posterior descending/circumflex. He is seen in the intensive care unit. Currently on the mechanical ventilator in assist control mode at a rate of 14, tidal volume 500, FiO2 of 60% and a PEEP of 5. Arterial blood gases on 100% FiO2 revealed a PaO2 of 169, pCO2 43, pH 7.35. He is currently sedated on propofol at 45 mcg/kg/m. He is requiring nitroglycerin drip at 5 mg/m. Cardizem drip at 5 mg per hour insulin drip at 1 unit per hour. Amiodarone at 1 mg/m. Lactated Ringer's at 50 MLS per hour. Current cardiac output is 5.2. Cardiac index 2.9. PA pressure 29/13. CVP 7. He has a right IJ [place]-John catheter in place. Right radial arterial line in place. Mediastinal and left pleural chest tubes in place. White count 14.5. Hemoglobin 11.4. Platelets 175. INR 1.2. Sodium 140. Potassium 3.6. Bicarb 22. BUN 19. Creatinine 0.58. Glucose 128. He is on DuoNeb inhalations. Heparin for DVT prophylaxis. POD #1 off-pump coronary artery bypass grafting 4 with sequential left internal mammary artery to the first diagonal and left anterior descending artery, left radial artery graft to the second obtuse marginal artery, reverse saphenous vein graft to the posterior descending (circumflex), ligation of the left atrial appendage with 35 mm AtriCure clip, endovascular vein harvest, endovascular radial artery harvest. Patient was reevaluated today on 11/10/2022, he was extubated a few hours after he was in the ICU last night. Patient is now on 4 L nasal cannula, he is on insulin 2 units per hour, he is also receiving albumin 4 soft blood pressure, lactated Ringer's at 50 mL per hour. Patient is relatively asymptomatic, does not seem to be in any distress. Pain seems to be reasonably controlledchest x-ray showed mostly postoperative changes ,small left-sided subcutaneous emphysema is noted, left-sided chest tube is noted in place. There is no evidence of pneumothorax.labs are unremarkable WBC count 7.2 hemoglobin is 11.1, basic metabolic profile is normal renal profile is normal Reevaluated today on 11/11/2022, patient remains in the ICU, he is now postoperative day #2 off-pump coronary artery bypass grafting 4 with sequential left internal mammary artery to the first diagonal and left anterior descending artery, left radial artery graft to the second obtuse marginal artery, reverse saphenous vein graft to the posterior descending (circumflex), ligation of the left atrial appendage with 35 mm AtriCure clip, endovascular vein harvest, endovascular radial artery harvest. Patient is doing well today, he is on 4 L nasal cannula, chest x-ray showed minimal interstitial prominence, no evidence of acute process, there is evidence of postoperative changes, patient continues to have right internal jugular Cordis, mediastinal and left pleural chest tubes, and he has a right radial arterial line. Patient is relatively asymptomatic, doing great. He is not requiring any inotropes or any pressors. CBC is relatively normal electrolytes are normal Objective - Vital Signs Vital signs: Vital Signs Temp 98.3 F 11/11/22 08:00 Pulse 80 11/11/22 09:00 Resp 18 11/11/22 09:00 BP 109/73 11/11/22 09:00 Pulse Ox 91 L 11/11/22 09:00 FiO2 70 11/10/22 00:00 Intake & Output 11/10/22 11/11/22 11/11/22 18:59 06:59 18:59 Intake Total 237.265 1087 302 Output Total 1365 1555 275 Balance -793.343 -413 27 Weight 77.6 kg 79.4 kg Intake: IV 571 362 52 .9NS Cardiac Output 20 0.9NS Pressure Bag 81 72 12 Lactated Ringers 1,000 ml 470 290 40 @ 20 mls/hr IV .Q24H [facility] Rx#:[id number] Intake, IV Titration 0.657 Amount Insulin Regular 100 unit 0.657 In Sodium Chloride 0.9% 100 ml @ Per Protocol IV .Q0M [facility] Rx#:[id number] Oral 780 250 Output: Chest Tube Drainage 270 270 Mediastinal and Left 270 270 Pleural Urine 1095 1285 275 Other: Voiding Method Indwelling Catheter Indwelling Catheter Indwelling Catheter ABP, PAP, CO, CI - Last Documented Arterial Blood Pressure 103/52 Pulmonary Artery Pressure 30/6 Cardiac Output 5 Cardiac Index 2.8 - Exam Physical Exam: Revealed 62-year-old white male in no distress. On 4 L nasal cannula. Head: Atraumatic, normocephalic.a right internal jugular [place]-John catheter is noted HEENT:[Neck is supple.] [No neck masses.] [No thyromegaly.] [No JVD.] Chest: [Diminished breath sound bilaterally no rhonchi and no wheezes Cardiac Exam: [Normal S1 and S2, no S3 gallop, no murmur.] Abdomen: [Soft, nontender, no megaly, no rebound, no guarding, normal bowel sounds.] Extremities: [No clubbing, no edema, no cyanosis.] Neurological Exam: [No focal neurologic deficit.] alert and oriented 3. Psychiatric: Normal mood affect and normal mental status examination. - Labs CBC & Chem 7: 11/11/22 04:45 11/11/22 04:45 Labs: Abnormal Lab Results - Last 24 Hours (Table) 11/06/22 11/10/22 11/10/22 Range/Units 09:09 09:27 12:00 RBC (4.30-5.90) m/uL Hgb (13.0-17.5) gm/dL Hct (39.0-53.0) % Plt Count (150-450) k/uL Lymphocytes # (1.0-4.8) k/uL Sodium (137-145) mmol/L Glucose (74-99) mg/dL POC Glucose (mg/dL) 139 H 125 H (70-110) mg/dL Calcium (8.4-10.2) mg/dL Total Bilirubin (0.2-1.3) mg/dL Total Protein (6.3-8.2) g/dL Albumin (3.5-5.0) g/dL Crossmatch See Detail 11/10/22 11/10/22 11/11/22 Range/Units 16:51 20:39 04:45 RBC 3.56 L (4.30-5.90) m/uL Hgb 11.4 L (13.0-17.5) gm/dL Hct 33.8 L (39.0-53.0) % Plt Count 147 L (150-450) k/uL Lymphocytes # 0.9 L (1.0-4.8) k/uL Sodium (137-145) mmol/L Glucose (74-99) mg/dL POC Glucose (mg/dL) 123 H 175 H (70-110) mg/dL Calcium (8.4-10.2) mg/dL Total Bilirubin (0.2-1.3) mg/dL Total Protein (6.3-8.2) g/dL Albumin (3.5-5.0) g/dL Crossmatch 11/11/22 11/11/22 Range/Units 04:45 06:09 RBC (4.30-5.90) m/uL Hgb (13.0-17.5) gm/dL Hct (39.0-53.0) % Plt Count (150-450) k/uL Lymphocytes # (1.0-4.8) k/uL Sodium 135 L (137-145) mmol/L Glucose 147 H (74-99) mg/dL POC Glucose (mg/dL) 159 H (70-110) mg/dL Calcium 8.2 L (8.4-10.2) mg/dL Total Bilirubin 1.6 H (0.2-1.3) mg/dL Total Protein 5.2 L (6.3-8.2) g/dL Albumin 3.1 L (3.5-5.0) g/dL Crossmatch Assessment and Plan Assessment: impression: Coronary artery disease, status post four-vessel CABG, postoperative day #2 Benign essential hypertension. Tobacco dependence syndrome. History of CVA and minimal residual right-sided weakness Intraoperative atrial fibrillation, presently in sinus rhythm. Dyslipidemia. Recommendation: No changes were made today, continue supportive care measures. Continue bronchodilators for his underlying COPD Continue aspirin statins and Plavix beta blockers Wean oxygen as tolerated and titrate FiO2 down. incentive spirometry Early ambulation. GI and DVT prophylaxis. Chest x-ray was reviewed Labs were reviewed We will continue to follow. Time with Patient: Less than 30
--- NOTE | 2022-11-11 09:41 | XR ---
EXAMINATION TYPE: XR chest 1V portable DATE OF EXAM: 11/11/2022 COMPARISON: 11/10/2022 HISTORY: Postcardiac surgery TECHNIQUE: Single frontal view of the chest is obtained. FINDINGS: There are median sternotomy wires. There is no change in the left chest tube. There has been interval removal of the [place]-John catheter. The heart is prominent in size and stable. There is a probable tiny right pleural effusion which is s table. There is mild left lower lobe atelectasis which is stable. There is no pneumothorax. IMPRESSION: 1. Interval removal of the [place]-John catheter. 2. No change in the mediastinal tube and left chest tube. 3. Stable mild changes in the lung bases. 4. No pneumothorax.
[2022-11-11 11:50] LABS: Glucose,Whole Blood 132 mg/dL (70-110)
[2022-11-11] MEDS: HYDROcodone/APAP 7.5-325MG 1 EACH TAB PO PRN ×3 (12:20→23:03)
[2022-11-11] MEDS: amLODIPine 2.5 MG TAB PO SCH (12:20)
--- NOTE | 2022-11-11 12:47 | PN ---
PROGRESS NOTE SUBJECTIVE: Khoi is a 62-year-old gentleman with history of multivessel coronary artery disease, status post CABG postop day #2. He is doing well, remains in sinus rhythm, hemodynamically stable. MEDICATIONS: Currently on, 1. Cordarone 200 mg daily. 2. Norvasc 2.5 mg daily. 3. Aspirin. 4. Lipitor. 5. Plavix. 6. Lopressor 12.5 b.i.d. OBJECTIVE: GENERAL: Comfortable at rest. VITAL SIGNS: Stable. CHEST: Reveals good air entry bilaterally. HEART: Reveals first and second heart sounds. No gallop, no murmur. No rub. ABDOMEN: Soft, nontender. EXTREMITIES: Did not reveal any edema. Peripheral pulses are felt. LABORATORY DATA: Show a hemoglobin of 11.4, platelet count is 147, potassium is 4.4, creatinine is 0.69. ASSESSMENT: 1. CAD, status post CABG. 2. Perioperative atrial fibrillation. PLAN: The patient will continue current medications, will be transferred out of ICU. DEBBY / PASCALEN: [id number] /
--- NOTE | 2022-11-11 14:30 | P.PN ---
Subjective Progress Note Date: 11/11/22 This is a 62-year-old male patient with a known history of chronic tobacco dependence, hypertension, hyperlipidemia, CVA with some right-sided weakness right-sided facial droop right forearm numbness residuals. He was having issues with fatigue and chest discomfort and had undergone cardiac catheterization 10/25/2022 and was found to have severe coronary artery disease including a proximal LAD of 50% stenosis, mid LAD 50-60. Stenosis, proximal circumflex of 80% with a 90-100% mid circumflex lesion. He's also had 100% ostial OM1 stenosis and a nondominant RCA 99%. He was recommended coronary artery bypass grafting 11/11. Patient seen and examined. Status post CABG, postop day 2. Sitting upright in the chair. Denies any acute issues overnight. Vital signs stable REVIEW OF SYSTEMS: CONSTITUTIONAL: No fever, no malaise,. CARDIOVASCULAR: No chest pain, no palpitations, no syncope. PULMONARY: No shortness of breath, no cough, GASTROINTESTINAL: No diarrhea, no nausea, no vomiting, no abdominal pain. NEUROLOGICAL: No headaches, no weakness, PHYSICAL EXAMINATION: GENERAL: The patient is alert and oriented x3, not in any acute distress. Well developed, well nourished. HEENT: Pupils are round and equally reacting to light. EOMI. No scleral icterus. No conjunctival pallor. Normocephalic, atraumatic. No pharyngeal erythema. No thyromegaly. CARDIOVASCULAR: S1 and S2 present. No murmurs, rubs, or gallops. PULMONARY: Chest is clear to auscultation, no wheezing or crackles. Chest tubes seen ABDOMEN: Soft, nontender, nondistended, normoactive bowel sounds. No palpable organomegaly. MUSCULOSKELETAL: No joint swelling or deformity. EXTREMITIES: No cyanosis, clubbing, or pedal edema. NEUROLOGICAL: Gross neurological examination did not reveal any focal deficits. SKIN: No rashes. Assessment and plan Coronary artery disease, status post four-vessel CABG, postoperative day #2 Benign essential hypertension. Tobacco dependence syndrome. History of CVA and minimal residual right-sided weakness Intraoperative atrial fibrillation, presently in sinus rhythm. Dyslipidemia. Monitor vital signs Monitor CBC Monitor CMP Chest tube management per cardiac surgery Discontinue Davis Continue aspirin, Plavix, Lipitor Follow-up on cardiac surgery recommendations Critical care following DVT prophylaxis: Objective - Vital Signs Vital signs: Vital Signs Temp 98.1 F 11/11/22 12:00 Pulse 69 11/11/22 12:00 Resp 21 11/11/22 12:00 BP 109/73 11/11/22 12:00 Pulse Ox 94 L 11/11/22 12:00 FiO2 70 11/10/22 00:00 Intake & Output 11/10/22 11/11/22 11/11/22 18:59 06:59 18:59 Intake Total 045.687 7376 302 Output Total 1365 1555 575 Balance -793.343 -413 -273 Weight 77.6 kg 79.4 kg Intake: IV 571 362 52 .9NS Cardiac Output 20 0.9NS Pressure Bag 81 72 12 Lactated Ringers 1,000 ml 470 290 40 @ 20 mls/hr IV .Q24H [facility] Rx#:[id number] Intake, IV Titration 0.657 Amount Insulin Regular 100 unit 0.657 In Sodium Chloride 0.9% 100 ml @ Per Protocol IV .Q0M [facility] Rx#:[id number] Oral 780 250 Output: Chest Tube Drainage 270 270 Mediastinal and Left 270 270 Pleural Urine 1095 1285 575 Other: Voiding Method Indwelling Catheter Indwelling Catheter Urinal ABP, PAP, CO, CI - Last Documented Arterial Blood Pressure 103/52 Pulmonary Artery Pressure 30/6 Cardiac Output 5 Cardiac Index 2.8 - Labs CBC & Chem 7: 11/11/22 04:45 11/11/22 04:45 Labs: Abnormal Lab Results - Last 24 Hours (Table) 11/06/22 11/10/22 11/10/22 Range/Units 09:09 16:51 20:39 RBC (4.30-5.90) m/uL Hgb (13.0-17.5) gm/dL Hct (39.0-53.0) % Plt Count (150-450) k/uL Lymphocytes # (1.0-4.8) k/uL Sodium (137-145) mmol/L Glucose (74-99) mg/dL POC Glucose (mg/dL) 123 H 175 H (70-110) mg/dL Calcium (8.4-10.2) mg/dL Total Bilirubin (0.2-1.3) mg/dL Total Protein (6.3-8.2) g/dL Albumin (3.5-5.0) g/dL Crossmatch See Detail 11/11/22 11/11/22 11/11/22 Range/Units 04:45 04:45 06:09 RBC 3.56 L (4.30-5.90) m/uL Hgb 11.4 L (13.0-17.5) gm/dL Hct 33.8 L (39.0-53.0) % Plt Count 147 L (150-450) k/uL Lymphocytes # 0.9 L (1.0-4.8) k/uL Sodium 135 L (137-145) mmol/L Glucose 147 H (74-99) mg/dL POC Glucose (mg/dL) 159 H (70-110) mg/dL Calcium 8.2 L (8.4-10.2) mg/dL Total Bilirubin 1.6 H (0.2-1.3) mg/dL Total Protein 5.2 L (6.3-8.2) g/dL Albumin 3.1 L (3.5-5.0) g/dL Crossmatch 11/11/22 Range/Units 11:48 RBC (4.30-5.90) m/uL Hgb (13.0-17.5) gm/dL Hct (39.0-53.0) % Plt Count (150-450) k/uL Lymphocytes # (1.0-4.8) k/uL Sodium (137-145) mmol/L Glucose (74-99) mg/dL POC Glucose (mg/dL) 132 H (70-110) mg/dL Calcium (8.4-10.2) mg/dL Total Bilirubin (0.2-1.3) mg/dL Total Protein (6.3-8.2) g/dL Albumin (3.5-5.0) g/dL Crossmatch
[2022-11-11 16:54] LABS: Glucose,Whole Blood 152 mg/dL (70-110)
[2022-11-11 19:55] LABS: Glucose,Whole Blood 139 mg/dL (70-110)
[2022-11-11] MEDS: SENNOSIDES-DOCUSATE SODIUM 1 EACH TAB PO SCH (20:04)
[2022-11-11] MEDS: ATORVASTATIN 80 MG TAB PO SCH (20:04)
[2022-11-12 04:43] LABS: ALT 17 U/L (4-49); AST 33 U/L (17-59); African American GFR (CKD) >90 (>60 ml/min/1.73 sqM); Albumin 3.2 g/dL (3.5-5.0); Alkaline Phosphatase 61 U/L (38-126); Anion Gap 7 mmol/L; Blood Urea Nitrogen 15 mg/dL (9-20); Calcium 8.6 mg/dL (8.4-10.2); Carbon Dioxide 27 mmol/L (22-30); Chloride 104 mmol/L (98-107); Glucose 108 mg/dL (74-99); Non-African American GFR(CKD) >90 (>60 ml/min/1.73 sqM); Potassium 4.6 mmol/L (3.5-5.1); Sodium 138 mmol/L (137-145); Total Bilirubin 1.8 mg/dL (0.2-1.3); Total Protein 5.6 g/dL (6.3-8.2)
[2022-11-12 05:03] LABS: Basophils # (A) 0.1 k/uL (0-0.2); Basophils % (A) 0 %; Eosinophils # (A) 0.4 k/uL (0-0.7); Eosinophils % (A) 3 %; HCT 34.4 % (39.0-53.0); HGB 11.6 gm/dL (13.0-17.5); Lymphocytes # (A) 1.5 k/uL (1.0-4.8); Lymphocytes % (A) 14 %; MCH 32.3 pg (25.0-35.0); MCHC 33.8 g/dL (31.0-37.0); MCV 95.4 fL (80.0-100.0); Mean Platelet Volume 10.2; Monocytes # (A) 0.9 k/uL (0-1.0); Monocytes % (A) 8 %; Neutrophils # (A) 8.2 k/uL (1.3-7.7); Neutrophils % (A) 73 %; Platelet Count 168 k/uL (150-450); RDW 14.3 % (11.5-15.5); WBC 11.2 k/uL (3.8-10.6)
[2022-11-12 06:15] LABS: Glucose,Whole Blood 126 mg/dL (70-110)
[2022-11-12] MEDS: KETOROLAC 15 MG/ML 1 ML VIAL IVP SCH ×3 (06:18→16:29)
[2022-11-12] MEDS: INSULIN ASPART (NovoLOG) 100 UNIT/ML VIAL SQ SCH ×4 (06:18→20:21)
[2022-11-12] MEDS: PANTOPRAZOLE 40 MG TABLET PO SCH (06:19)
--- NOTE | 2022-11-12 07:35 | P.PN ---
Subjective Progress Note Date: 11/12/22 Principal diagnosis: Coronary artery disease. Previous medical history of hypertension, hyperlipidemia, single episode of syncope with unknown cause, tobacco dependence with recent cessation, stroke in 2021 with some residual right-sided weakness, and family history of premature coronary artery disease with brother having open heart surgery in his 30s POD #3 off-pump coronary artery bypass grafting 4 with sequential left internal mammary artery to the first diagonal and left anterior descending artery, left radial artery graft to the second obtuse marginal artery, reverse saphenous vein graft to the posterior descending (circumflex), ligation of the left atrial appendage with 35 mm AtriCure clip, endovascular vein harvest, endovascular radial artery harvest Intraoperative atrial fibrillation, currently sinus The patient was seen and examined this morning sitting up in a in the intensive care unit in no acute distress. States pain is controlled on current medication regimen, denies shortness of breath. Remains in sinus rhythm, hemodynamically stable. The patient has ambulated multiple times in the hallway without difficulty. Remains on 2 L nasal cannula. Chest x-ray, labs reviewed. No other new concerns. Objective - Vital Signs Vital signs: Vital Signs Temp 98.7 F 11/12/22 04:00 Pulse 78 11/12/22 07:00 Resp 20 11/12/22 07:00 BP 113/69 11/12/22 07:00 Pulse Ox 92 L 11/12/22 07:00 FiO2 70 11/10/22 00:00 Intake & Output 11/11/22 11/12/22 11/12/22 18:59 06:59 18:59 Intake Total 302 390 Output Total 1125 1600 Balance -823 -1210 Weight 78.1 kg Intake: IV 52 0.9NS Pressure Bag 12 Lactated Ringers 1,000 ml 40 @ 20 mls/hr IV .Q24H [facility] Rx#:[id number] Oral 250 390 Output: Urine 1125 1600 Other: Voiding Method Urinal Urinal Urinal ABP, PAP, CO, CI - Last Documented Arterial Blood Pressure 103/52 Pulmonary Artery Pressure 30/6 Cardiac Output 5 Cardiac Index 2.8 - Exam CONSTITUTIONAL: Appears comfortable, cooperative, no acute distress RESPIRATORY: Lungs sounds diminished bilaterally. Respirations even, nonlabored. Currently on 2 L nasal cannula with oxygen saturation 93%. Able to achieve 8176-3484 mL on incentive spirometry. Strong cough. CARDIOVASCULAR: S1, S2 present. Regular rate and rhythm, sinus rhythm on telemetry. Sternum stable. Palpable peripheral pulses bilaterally. No edema present. No calf pain or tenderness noted. Heart hugger in place with patient demonstrating appropriate use. Antiembolism stockings, SCDs present. GASTROINTESTINAL: Abdomen soft, nontender, nondistended. Active bowel sounds present 4 quadrants. Tolerating diet. Positive flatus GENITOURINARY: Continues to void. Output 2725 mL in the last 24 hours INTEGUMENTARY: Skin is warm and dry with evidence of good perfusion. Anterior chest incision well approximated and covered with dry intact dressing. Left lower extremity EVH site and left radial artery harvest site well approximated without redness or drainage. NEUROLOGIC: Cranial nerves II through XII intact MUSKULOSKELETAL: Able to move all extremities, strength equal bilaterally, gait normal PSYCHIATRIC: Alert and oriented to person place and time, appropriate affect, intact judgment and insight INVASIVE LINES AND TUBES: A/V epicardial pacemaker wires present, grounded - Allied health notes Allied health notes reviewed: nursing - Labs CBC & Chem 7: 11/12/22 03:49 11/12/22 03:49 Labs: Abnormal Lab Results - Last 24 Hours (Table) 11/11/22 11/11/22 11/11/22 Range/Units 11:48 16:52 19:54 WBC (3.8-10.6) k/uL RBC (4.30-5.90) m/uL Hgb (13.0-17.5) gm/dL Hct (39.0-53.0) % Neutrophils # (1.3-7.7) k/uL Glucose (74-99) mg/dL POC Glucose (mg/dL) 132 H 152 H 139 H (70-110) mg/dL Total Bilirubin (0.2-1.3) mg/dL Total Protein (6.3-8.2) g/dL Albumin (3.5-5.0) g/dL 11/12/22 11/12/22 11/12/22 Range/Units 03:49 03:49 06:14 WBC 11.2 H (3.8-10.6) k/uL RBC 3.60 L (4.30-5.90) m/uL Hgb 11.6 L (13.0-17.5) gm/dL Hct 34.4 L (39.0-53.0) % Neutrophils # 8.2 H (1.3-7.7) k/uL Glucose 108 H (74-99) mg/dL POC Glucose (mg/dL) 126 H (70-110) mg/dL Total Bilirubin 1.8 H (0.2-1.3) mg/dL Total Protein 5.6 L (6.3-8.2) g/dL Albumin 3.2 L (3.5-5.0) g/dL - Imaging and Cardiology Chest x-ray: image reviewed Assessment and Plan Assessment: Coronary artery disease, status post four-vessel CABG History of hypertension Hyperlipidemia, treated, cholesterol 223, LDL 159, triglycerides 151 Single episode of syncope with unknown cause Tobacco dependence with recent cessation, preoperative FEV1 77% of predicted Stroke in 2021 with some residual right-sided weakness Family history of premature coronary artery disease with brother having open heart surgery in his 30s Intraoperative atrial fibrillation, currently sinus, status post ligation of the left atrial appendage Plan: Continue to maximize medical therapy with aspirin, statin, Plavix, beta patrick therapy Continue calcium channel patrick for radial artery spasm prophylaxis, parameters placed Continue amiodarone for A. fib prophylaxis. No anticoagulation necessary at this point Wean O2 as tolerated. Encourage incentive spirometry use 10 times every hour while awake. Bronchodilators per pulmonology Increase activity, ambulate as tolerated. PT/OT/cardiac rehab consulted Will monitor daily labs and x-rays. Electrolyte replacement per protocol. No lasix today Pain control with current medication regimen Patient is not diabetic, preoperative hemoglobin A1c 6.2%, however he does need tight blood sugar control to promote healing and prevent infection Patient to shower today, then daily Strict accurate intake and output, daily weights GI/DVT prophylaxis Transfer orders placed for [address], may transfer when bed available Discharge planning in progress. Anticipate discharge to home with home care in the next 24-48 hours More recommendations to follow as patient progresses
[2022-11-12] MEDS: CLOPIDOGREL 75 MG TAB PO SCH (07:39)
[2022-11-12] MEDS: ASPIRIN 325 MG TAB PO SCH (07:39)
[2022-11-12] MEDS: METOPROLOL TARTRATE 12.5 MG TAB PO SCH ×2 (07:39→20:20)
[2022-11-12] MEDS: PREGABALIN 75 MG CAP PO SCH ×2 (07:39→20:20)
[2022-11-12] MEDS: HYDROcodone/APAP 7.5-325MG 1 EACH TAB PO PRN ×3 (07:39→20:20)
[2022-11-12] MEDS: HEPARIN SODIUM,PORCINE/PF 5,000 UNIT/0.5 ML SYRINGE SQ SCH ×2 (07:40→16:40)
[2022-11-12] MEDS: AMIODARONE 200 MG TAB PO SCH ×2 (07:40→16:40)
[2022-11-12] MEDS: IPRATROPIUM-ALBUTEROL 3 ML NEB INHALATION SCH ×4 (07:47→20:28)
--- NOTE | 2022-11-12 08:45 | XR ---
EXAMINATION TYPE: XR chest 2V DATE OF EXAM: 11/12/2022 COMPARISON: 11/11/2022 INDICATION: Postcardiac surgery TECHNIQUE: Frontal and lateral views of the chest are obtained. FINDINGS: The heart size is mildly prominent. Sternotomy wires and midline cardiac surgery.. The pulmonary vasculature is normal. Some mild subsegmental platelike atelectasis is present at the bilateral lung bases. A small right pl eural effusion is present. Left-sided chest tube and mediastinal to been removed. No pneumothorax is evident.. IMPRESSION: 1. Mild cardiomegaly. 2. Small bilateral areas of subsegmental atelectasis with small right pleural effusion
--- NOTE | 2022-11-12 09:42 | PN ---
PROGRESS NOTE SUBJECTIVE: Khoi Lozada is a 62-year-old gentleman with history of coronary artery disease, status post bypass surgery. The patient is feeling better. Free of chest pain or difficulty in breathing. Vital signs are stable. Labs showed a hemoglobin of 11.6, potassium of 4.6, creatinine is 0.78. CURRENT MEDICATIONS: Include, 1. Norvasc 2.5 daily. 2. Amiodarone 200 q.8. 3. Lipitor. 4. Aspirin. 5. Plavix. 6. Lopressor 12.5 b.i.d. PHYSICAL EXAMINATION: GENERAL: Comfortable at rest. VITAL SIGNS: Stable. CHEST: Reveals good air entry bilaterally. HEART: Reveals first and second heart sounds. No gallop. No murmur. ABDOMEN: Soft. EXTREMITIES: Did not reveal any edema. Peripheral pulses are felt. ASSESSMENT: Coronary artery disease, status post coronary artery bypass graft. PLAN: The patient is doing well. We will continue with current medications. MMODL / IJN: [id number] /
[2022-11-12 11:36] LABS: Glucose,Whole Blood 118 mg/dL (70-110)
[2022-11-12] MEDS: amLODIPine 2.5 MG TAB PO SCH (11:38)
--- NOTE | 2022-11-12 11:45 | P.PN ---
Subjective Progress Note Date: 11/12/22 Principal diagnosis: status post CABG, postoperative day #3 This is a 62-year-old male patient with a known history of chronic tobacco dependence, hypertension, hyperlipidemia, CVA with some right-sided weakness right-sided facial droop right forearm numbness residuals. He was having issues with fatigue and chest discomfort and had undergone cardiac catheterization 10/25/2022 and was found to have severe coronary artery disease including a proximal LAD of 50% stenosis, mid LAD 50-60. Stenosis, proximal circumflex of 80% with a 90-100% mid circumflex lesion. He's also had 100% ostial OM1 stenosis and a nondominant RCA 99%. He was recommended coronary artery bypass grafting was brought in today electively for the surgery. He had undergone an off-pump coronary artery bypass grafting 4 with a sequential MCPHERSON to the first diagonal and LAD, left radial artery graft to the second obtuse marginal, saphenous vein graft to the posterior descending/circumflex. He is seen in the intensive care unit. Currently on the mechanical ventilator in assist control mode at a rate of 14, tidal volume 500, FiO2 of 60% and a PEEP of 5. Arterial blood gases on 100% FiO2 revealed a PaO2 of 169, pCO2 43, pH 7.35. He is currently sedated on propofol at 45 mcg/kg/m. He is requiring nitroglycerin drip at 5 mg/m. Cardizem drip at 5 mg per hour insulin drip at 1 unit per hour. Amiodarone at 1 mg/m. Lactated Ringer's at 50 MLS per hour. Current cardiac output is 5.2. Cardiac index 2.9. PA pressure 29/13. CVP 7. He has a right IJ Nolan-John catheter in place. Right radial arterial line in place. Mediastinal and left pleural chest tubes in place. White count 14.5. Hemoglobin 11.4. Platelets 175. INR 1.2. Sodium 140. Potassium 3.6. Bicarb 22. BUN 19. Creatinine 0.58. Glucose 128. He is on DuoNeb inhalations. Heparin for DVT prophylaxis. POD #1 off-pump coronary artery bypass grafting 4 with sequential left internal mammary artery to the first diagonal and left anterior descending artery, left radial artery graft to the second obtuse marginal artery, reverse saphenous vein graft to the posterior descending (circumflex), ligation of the left atrial appendage with 35 mm AtriCure clip, endovascular vein harvest, endovascular radial artery harvest. Patient was reevaluated today on 11/10/2022, he was extubated a few hours after he was in the ICU last night. Patient is now on 4 L nasal cannula, he is on insulin 2 units per hour, he is also receiving albumin 4 soft blood pressure, lactated Ringer's at 50 mL per hour. Patient is relatively asymptomatic, does not seem to be in any distress. Pain seems to be reasonably controlledchest x-ray showed mostly postoperative changes ,small left-sided subcutaneous emphysema is noted, left-sided chest tube is noted in place. There is no evidence of pneumothorax.labs are unremarkable WBC count 7.2 hemoglobin is 11.1, basic metabolic profile is normal renal profile is normal Reevaluated today on 11/11/2022, patient remains in the ICU, he is now postoperative day #2 off-pump coronary artery bypass grafting 4 with sequential left internal mammary artery to the first diagonal and left anterior descending artery, left radial artery graft to the second obtuse marginal artery, reverse saphenous vein graft to the posterior descending (circumflex), ligation of the left atrial appendage with 35 mm AtriCure clip, endovascular vein harvest, endovascular radial artery harvest. Patient is doing well today, he is on 4 L nasal cannula, chest x-ray showed minimal interstitial prominence, no evidence of acute process, there is evidence of postoperative changes, patient continues to have right internal jugular Cordis, mediastinal and left pleural chest tubes, and he has a right radial arterial line. Patient is relatively asymptomatic, doing great. He is not requiring any inotropes or any pressors. CBC is relatively normal electrolytes are normal Reevaluated today on 11/12/2022, patient remains in the ICU, he is now postoperative day #3. Patient is on 2 L nasal cannula, does not seem to be in any distress, he is hemodynamically stable, he is in sinus rhythm, not requiring any pressors or any inotropes. Already ambulated multiple times in the hallway without any difficulty. All his lines and catheters have been removed. Continues to have AV epicardial pacemaker wires present. Chest x-ray this morning showed cardiomegaly and small bilateral areas of atelectasis with small right-sided pleural effusion. WBC count is 11.2 hemoglobin 11.6 electrolytes are normal and renal profile is normal Objective - Vital Signs Vital signs: Vital Signs Temp 98.4 F 11/12/22 08:00 Pulse 67 11/12/22 11:35 Resp 24 11/12/22 08:00 BP 131/90 11/12/22 08:00 Pulse Ox 96 11/12/22 10:57 FiO2 70 11/10/22 00:00 Intake & Output 11/11/22 11/12/22 11/12/22 18:59 06:59 18:59 Intake Total 302 390 150 Output Total 1125 1600 Balance -823 -1210 150 Weight 78.1 kg Intake: IV 52 0.9NS Pressure Bag 12 Lactated Ringers 1,000 ml 40 @ 20 mls/hr IV .Q24H [facility] Rx#:[id number] Oral 250 390 150 Output: Urine 1125 1600 Other: Voiding Method Urinal Urinal Urinal ABP, PAP, CO, CI - Last Documented Arterial Blood Pressure 103/52 Pulmonary Artery Pressure 30/6 Cardiac Output 5 Cardiac Index 2.8 - Exam Physical Exam: Revealed 62-year-old white male in no distress. On 2 L nasal cannula. Head: Atraumatic, normocephalic HEENT:[Neck is supple.] [No neck masses.] [No thyromegaly.] [No JVD.] Chest: [Diminished breath sound bilaterally no rhonchi and no wheezes Cardiac Exam: [Normal S1 and S2, no S3 gallop, no murmur.] Abdomen: [Soft, nontender, no megaly, no rebound, no guarding, normal bowel sounds.] Extremities: [No clubbing, no edema, no cyanosis.] Neurological Exam: [No focal neurologic deficit.] alert and oriented 3. Psychiatric: Normal mood affect and normal mental status examination. - Labs CBC & Chem 7: 11/12/22 03:49 11/12/22 03:49 Labs: Abnormal Lab Results - Last 24 Hours (Table) 11/11/22 11/11/22 11/11/22 Range/Units 11:48 16:52 19:54 WBC (3.8-10.6) k/uL RBC (4.30-5.90) m/uL Hgb (13.0-17.5) gm/dL Hct (39.0-53.0) % Neutrophils # (1.3-7.7) k/uL Glucose (74-99) mg/dL POC Glucose (mg/dL) 132 H 152 H 139 H (70-110) mg/dL Total Bilirubin (0.2-1.3) mg/dL Total Protein (6.3-8.2) g/dL Albumin (3.5-5.0) g/dL 11/12/22 11/12/22 11/12/22 Range/Units 03:49 03:49 06:14 WBC 11.2 H (3.8-10.6) k/uL RBC 3.60 L (4.30-5.90) m/uL Hgb 11.6 L (13.0-17.5) gm/dL Hct 34.4 L (39.0-53.0) % Neutrophils # 8.2 H (1.3-7.7) k/uL Glucose 108 H (74-99) mg/dL POC Glucose (mg/dL) 126 H (70-110) mg/dL Total Bilirubin 1.8 H (0.2-1.3) mg/dL Total Protein 5.6 L (6.3-8.2) g/dL Albumin 3.2 L (3.5-5.0) g/dL 11/12/22 Range/Units 11:35 WBC (3.8-10.6) k/uL RBC (4.30-5.90) m/uL Hgb (13.0-17.5) gm/dL Hct (39.0-53.0) % Neutrophils # (1.3-7.7) k/uL Glucose (74-99) mg/dL POC Glucose (mg/dL) 118 H (70-110) mg/dL Total Bilirubin (0.2-1.3) mg/dL Total Protein (6.3-8.2) g/dL Albumin (3.5-5.0) g/dL Assessment and Plan Assessment: impression: Coronary artery disease, status post four-vessel CABG, postoperative day #3 Benign essential hypertension. Tobacco dependence syndrome. Counseled regarding smoking cessation. History of CVA and minimal residual right-sided weakness Intraoperative atrial fibrillation, resolved Dyslipidemia. Bibasilar atelectasis and postoperative small pleural effusion, expected. Recommendation: Continue incentive spirometry Continue bronchodilators for his underlying COPD Continue aspirin statins and Plavix beta blockers Wean oxygen as tolerated and titrate FiO2 down. Continue ambulation GI and DVT prophylaxis. Chest x-ray was reviewed, as noted above, Labs were reviewed, as noted above. We will continue to follow. Time with Patient: Less than 30
--- NOTE | 2022-11-12 13:54 | P.PN ---
Subjective Progress Note Date: 11/12/22 This is a 62-year-old male patient with a known history of chronic tobacco dependence, hypertension, hyperlipidemia, CVA with some right-sided weakness right-sided facial droop right forearm numbness residuals. He was having issues with fatigue and chest discomfort and had undergone cardiac catheterization 10/25/2022 and was found to have severe coronary artery disease including a proximal LAD of 50% stenosis, mid LAD 50-60. Stenosis, proximal circumflex of 80% with a 90-100% mid circumflex lesion. He's also had 100% ostial OM1 stenosis and a nondominant RCA 99%. He was recommended coronary artery bypass grafting 11/11. Patient seen and examined. Status post CABG, postop day 2. Sitting upright in the chair. Denies any acute issues overnight. Vital signs stable 11/12. Patient seen and examined. Chest tubes have been removed. Currently using I-S, states he feels much better. REVIEW OF SYSTEMS: CONSTITUTIONAL: No fever, no malaise,. CARDIOVASCULAR: No chest pain, no palpitations, no syncope. PULMONARY: No shortness of breath, no cough, GASTROINTESTINAL: No diarrhea, no nausea, no vomiting, no abdominal pain. NEUROLOGICAL: No headaches, no weakness, PHYSICAL EXAMINATION: GENERAL: The patient is alert and oriented x3, not in any acute distress. Well developed, well nourished. HEENT: Pupils are round and equally reacting to light. EOMI. No scleral icterus. No conjunctival pallor. Normocephalic, atraumatic. No pharyngeal erythema. No thyromegaly. CARDIOVASCULAR: S1 and S2 present. No murmurs, rubs, or gallops. PULMONARY: Chest is clear to auscultation, no wheezing or crackles. ABDOMEN: Soft, nontender, nondistended, normoactive bowel sounds. No palpable organomegaly. MUSCULOSKELETAL: No joint swelling or deformity. EXTREMITIES: No cyanosis, clubbing, or pedal edema. NEUROLOGICAL: Gross neurological examination did not reveal any focal deficits. SKIN: No rashes. Assessment and plan Coronary artery disease, status post four-vessel CABG, postoperative day #2 Benign essential hypertension. Tobacco dependence syndrome. History of CVA and minimal residual right-sided weakness Intraoperative atrial fibrillation, presently in sinus rhythm. Dyslipidemia. Monitor vital signs Monitor CBC Monitor CMP Continue aspirin, Plavix, Lipitor Follow-up on cardiac surgery recommendations Critical care following DVT prophylaxis: Objective - Vital Signs Vital signs: Vital Signs Temp 98.3 F 11/12/22 12:00 Pulse 94 11/12/22 12:00 Resp 18 11/12/22 12:00 BP 129/87 11/12/22 12:00 Pulse Ox 94 L 11/12/22 12:00 FiO2 70 11/10/22 00:00 Intake & Output 11/11/22 11/12/22 11/12/22 18:59 06:59 18:59 Intake Total 302 390 300 Output Total 1125 1600 350 Balance -823 -1210 -50 Weight 78.1 kg Intake: IV 52 0.9NS Pressure Bag 12 Lactated Ringers 1,000 ml 40 @ 20 mls/hr IV .Q24H [facility] Rx#:[id number] Oral 250 390 300 Output: Urine 1125 1600 350 Other: Voiding Method Urinal Urinal Urinal ABP, PAP, CO, CI - Last Documented Arterial Blood Pressure 103/52 Pulmonary Artery Pressure 30/6 Cardiac Output 5 Cardiac Index 2.8 - Labs CBC & Chem 7: 11/12/22 03:49 11/12/22 03:49 Labs: Abnormal Lab Results - Last 24 Hours (Table) 11/11/22 11/11/22 11/12/22 Range/Units 16:52 19:54 03:49 WBC 11.2 H (3.8-10.6) k/uL RBC 3.60 L (4.30-5.90) m/uL Hgb 11.6 L (13.0-17.5) gm/dL Hct 34.4 L (39.0-53.0) % Neutrophils # 8.2 H (1.3-7.7) k/uL Glucose (74-99) mg/dL POC Glucose (mg/dL) 152 H 139 H (70-110) mg/dL Total Bilirubin (0.2-1.3) mg/dL Total Protein (6.3-8.2) g/dL Albumin (3.5-5.0) g/dL 11/12/22 11/12/22 11/12/22 Range/Units 03:49 06:14 11:35 WBC (3.8-10.6) k/uL RBC (4.30-5.90) m/uL Hgb (13.0-17.5) gm/dL Hct (39.0-53.0) % Neutrophils # (1.3-7.7) k/uL Glucose 108 H (74-99) mg/dL POC Glucose (mg/dL) 126 H 118 H (70-110) mg/dL Total Bilirubin 1.8 H (0.2-1.3) mg/dL Total Protein 5.6 L (6.3-8.2) g/dL Albumin 3.2 L (3.5-5.0) g/dL
[2022-11-12 16:34] LABS: Glucose,Whole Blood 103 mg/dL (70-110)
[2022-11-12 20:09] LABS: Glucose,Whole Blood 124 mg/dL (70-110)
[2022-11-12] MEDS: SENNOSIDES-DOCUSATE SODIUM 1 EACH TAB PO SCH (20:20)
[2022-11-12] MEDS: ATORVASTATIN 80 MG TAB PO SCH (20:21)
[2022-11-13] MEDS: KETOROLAC 15 MG/ML 1 ML VIAL IVP SCH ×3 (00:14→11:13)
[2022-11-13] MEDS: AMIODARONE 200 MG TAB PO SCH ×2 (00:15→07:59)
[2022-11-13] MEDS: HEPARIN SODIUM,PORCINE/PF 5,000 UNIT/0.5 ML SYRINGE SQ SCH ×2 (00:15→07:59)
[2022-11-13 05:54] LABS: HCT 37.8 % (39.0-53.0); HGB 12.4 gm/dL (13.0-17.5); MCHC 32.9 g/dL (31.0-37.0); MCV 94.3 fL (80.0-100.0); Mean Platelet Volume 10.4; Platelet Count 274 k/uL (150-450); RBC 4.01 m/uL (4.30-5.90); RDW 14.8 % (11.5-15.5); WBC 11.4 k/uL (3.8-10.6)
[2022-11-13 06:00] LABS: Glucose,Whole Blood 120 mg/dL (70-110)
[2022-11-13 06:02] LABS: African American GFR (CKD) >90 (>60 ml/min/1.73 sqM); Anion Gap 10 mmol/L; Blood Urea Nitrogen 15 mg/dL (9-20); Calcium 9.3 mg/dL (8.4-10.2); Carbon Dioxide 28 mmol/L (22-30); Chloride 104 mmol/L (98-107); Glucose 110 mg/dL (74-99); Non-African American GFR(CKD) >90 (>60 ml/min/1.73 sqM); Potassium 5.2 mmol/L (3.5-5.1); Sodium 142 mmol/L (137-145)
[2022-11-13] MEDS: PANTOPRAZOLE 40 MG TABLET PO SCH (06:08)
[2022-11-13] MEDS: INSULIN ASPART (NovoLOG) 100 UNIT/ML VIAL SQ SCH ×2 (06:12→11:36)
--- NOTE | 2022-11-13 07:32 | P.PN ---
Subjective Progress Note Date: 11/13/22 Principal diagnosis: Coronary artery disease. Previous medical history of hypertension, hyperlipidemia, single episode of syncope with unknown cause, tobacco dependence with recent cessation, stroke in 2021 with some residual right-sided weakness, and family history of premature coronary artery disease with brother having open heart surgery in his 30s POD #4 off-pump coronary artery bypass grafting 4 with sequential left internal mammary artery to the first diagonal and left anterior descending artery, left radial artery graft to the second obtuse marginal artery, reverse saphenous vein graft to the posterior descending (circumflex), ligation of the left atrial appendage with 35 mm AtriCure clip, endovascular vein harvest, endovascular radial artery harvest Intraoperative atrial fibrillation, currently sinus The patient was seen and examined this morning sitting up in a recliner on the cardiac stepdown unit in no acute distress. States pain is controlled on cu rrent medication regimen, denies shortness of breath. Remains in sinus rhythm, hemodynamically stable. The patient has ambulated multiple times in the hallway without difficulty. Currently on room air, achieving 2250 mL on incentive spirometry. Chest x-ray, labs reviewed. No other new concerns. Objective - Vital Signs Vital signs: Vital Signs Temp 98.3 F 11/13/22 04:00 Pulse 71 11/13/22 04:00 Resp 18 11/13/22 04:00 BP 124/80 11/13/22 04:00 Pulse Ox 92 L 11/13/22 04:00 FiO2 70 11/10/22 00:00 Intake & Output 11/12/22 11/13/22 11/13/22 18:59 06:59 18:59 Intake Total 300 Output Total 350 1800 Balance -50 -1800 Intake: Oral 300 Output: Urine 350 1800 Other: Voiding Method Urinal Urinal ABP, PAP, CO, CI - Last Documented Arterial Blood Pressure 103/52 Pulmonary Artery Pressure 30/6 Cardiac Output 5 Cardiac Index 2.8 - Exam CONSTITUTIONAL: Appears comfortable, cooperative, no acute distress RESPIRATORY: Lungs sounds diminished bilaterally. Respirations even, nonlabored. Currently on room air with oxygen saturation 92%. Able to achieve 2250 mL on incentive spirometry. Strong cough. CARDIOVASCULAR: S1, S2 present. Regular rate and rhythm, sinus rhythm on telemetry. Sternum stable. Palpable peripheral pulses bilaterally. No edema present. No calf pain or tenderness noted. Heart hugger in place with patient demonstrating appropriate use. Antiembolism stockings, SCDs present. GASTROINTESTINAL: Abdomen soft, nontender, nondistended. Active bowel sounds present 4 quadrants. Tolerating diet. Positive bowel movement x 2 GENITOURINARY: Continues to void. Output 2150 mL in the last 24 hours INTEGUMENTARY: Skin is warm and dry with evidence of good perfusion. Anterior chest incision well approximated. Left lower extremity EVH site and left radial artery harvest site well approximated without drainage. NEUROLOGIC: Cranial nerves II through XII intact MUSKULOSKELETAL: Able to move all extremities, strength equal bilaterally, gait normal PSYCHIATRIC: Alert and oriented to person place and time, appropriate affect, intact judgment and insight INVASIVE LINES AND TUBES: A/V epicardial pacemaker wires present, grounded - Allied health notes Allied health notes reviewed: nursing - Labs CBC & Chem 7: 11/13/22 05:06 11/13/22 05:06 Labs: Abnormal Lab Results - Last 24 Hours (Table) 11/12/22 11/12/22 11/13/22 Range/Units 11:35 20:07 05:06 WBC 11.4 H (3.8-10.6) k/uL RBC 4.01 L (4.30-5.90) m/uL Hgb 12.4 L (13.0-17.5) gm/dL Hct 37.8 L (39.0-53.0) % Potassium (3.5-5.1) mmol/L Glucose (74-99) mg/dL POC Glucose (mg/dL) 118 H 124 H (70-110) mg/dL 11/13/22 11/13/22 Range/Units 05:06 05:59 WBC (3.8-10.6) k/uL RBC (4.30-5.90) m/uL Hgb (13.0-17.5) gm/dL Hct (39.0-53.0) % Potassium 5.2 H (3.5-5.1) mmol/L Glucose 110 H (74-99) mg/dL POC Glucose (mg/dL) 120 H (70-110) mg/dL - Imaging and Cardiology Chest x-ray: image reviewed Assessment and Plan Assessment: Coronary artery disease, status post four-vessel CABG History of hypertension Hyperlipidemia, treated, cholesterol 223, LDL 159, triglycerides 151 Single episode of syncope with unknown cause Tobacco dependence with recent cessation, preoperative FEV1 77% of predicted Stroke in 2021 with some residual right-sided weakness Family history of premature coronary artery disease with brother having open heart surgery in his 30s Intraoperative atrial fibrillation, currently sinus, status post ligation of the left atrial appendage Plan: Continue to maximize medical therapy with aspirin, statin, Plavix, beta patrick therapy Continue calcium channel patrick for radial artery spasm prophylaxis Continue amiodarone for A. fib prophylaxis. No anticoagulation necessary Encourage incentive spirometry use 10 times every hour while awake. Bronch odilators per pulmonology Increase activity, ambulate as tolerated. PT/OT/cardiac rehab following Will monitor daily labs and x-rays. Electrolyte replacement per protocol Pain control with current medication regimen Patient is not diabetic, preoperative hemoglobin A1c 6.2%, however he does need tight blood sugar control to promote healing and prevent infection Patient to shower daily Strict accurate intake and output, daily weights GI/DVT prophylaxis Will discontinue pacer wires today, patient to remain on bedrest for 1 hour post wire removal Discharge planning in progress. Anticipate discharge to home with home care this afternoon More recommendations to follow as patient progresses
[2022-11-13] MEDS ORDERED: HYDROcodone/APAP 7.5-325MG 1 EACH TAB PO PRN (07:34)
[2022-11-13] MEDS ORDERED: SENNOSIDES-DOCUSATE SODIUM 1 EACH TAB PO PRN (07:34)
[2022-11-13] MEDS: ASPIRIN 325 MG TAB PO SCH (07:59)
[2022-11-13] MEDS: METOPROLOL TARTRATE 12.5 MG TAB PO SCH (07:59)
[2022-11-13] MEDS: PREGABALIN 75 MG CAP PO SCH (07:59)
[2022-11-13] MEDS: CLOPIDOGREL 75 MG TAB PO SCH (07:59)
--- NOTE | 2022-11-13 08:29 | XR ---
EXAMINATION TYPE: XR chest 2V DATE OF EXAM: 11/13/2022 COMPARISON: 11/12/2022 TECHNIQUE: PA and lateral views submitted. HISTORY: Postcardiac surgery FINDINGS: Heart is enlarged and there is bilateral consolidation and small effusion. No venous congestion. No p neumothorax. Hyperinflation suggests COPD. Postoperative change with atherosclerotic change aorta. Diffuse osteopenia. IMPRESSION: 1. Postsurgical changes with underlying consolidation bilateral pleural effusion. Correlate for COPD.
[2022-11-13] MEDS ORDERED: FUROSEMIDE 10 MG/ML 2 ML VIAL IV ONE (08:57)
[2022-11-13] MEDS: IPRATROPIUM-ALBUTEROL 3 ML NEB INHALATION SCH ×2 (09:18→12:42)
--- NOTE | 2022-11-13 09:32 | P.PN ---
Subjective Progress Note Date: 11/13/22 History of present illness: This is a 62-year-old male with history of coronary artery disease status post coronary artery bypass surgery, transferred from the ICU to the cardiac stepdown unit. Patient is chest pain-free. No shortness of breath. No lightheadedness or dizziness. Heart rate is running in the 60s and 70s in a sinus rhythm. Blood pressure Physical examination: Gen: This is a 62-year-old male. He is resting in chair and appears to be comfortable VS: reviewed HEENT: Head is atraumatic, normocephalic. Pupils equal, round. Sclerae is anicteric. LUNGS: Decreased breath sounds on the left. No intercostal retractions. HEART: Regular rate and rhythm. No murmur. EXTREMITIES: Trace pedal edema. No calf tenderness. NEUROLOGICAL: Patient is awake, alert and oriented x3. Assessment: Coronary artery disease status post CABG Plan: Continue patient on current cardiac medications Follow-up in the office in one to 2 weeks Nurse practitioner note has been reviewed, I agree with documented findings and plan of care. Patient was seen and examined. Objective - Vital Signs Vital signs: Vital Signs Temp 98.3 F 11/13/22 04:00 Pulse 71 11/13/22 04:00 Resp 18 11/13/22 04:00 BP 124/80 11/13/22 04:00 Pulse Ox 92 L 11/13/22 04:00 FiO2 70 11/10/22 00:00 Intake & Output 11/12/22 11/13/22 11/13/22 18:59 06:59 18:59 Intake Total 300 Output Total 350 1800 Balance -50 -1800 Intake: Oral 300 Output: Urine 350 1800 Other: Voiding Method Urinal Urinal ABP, PAP, CO, CI - Last Documented Arterial Blood Pressure 103/52 Pulmonary Artery Pressure 30/6 Cardiac Output 5 Cardiac Index 2.8 - Labs CBC & Chem 7: 11/13/22 05:06 11/13/22 05:06 Labs: Abnormal Lab Results - Last 24 Hours (Table) 11/12/22 11/12/22 11/13/22 Range/Units 11:35 20:07 05:06 WBC 11.4 H (3.8-10.6) k/uL RBC 4.01 L (4.30-5.90) m/uL Hgb 12.4 L (13.0-17.5) gm/dL Hct 37.8 L (39.0-53.0) % Potassium (3.5-5.1) mmol/L Glucose (74-99) mg/dL POC Glucose (mg/dL) 118 H 124 H (70-110) mg/dL 11/13/22 11/13/22 Range/Units 05:06 05:59 WBC (3.8-10.6) k/uL RBC (4.30-5.90) m/uL Hgb (13.0-17.5) gm/dL Hct (39.0-53.0) % Potassium 5.2 H (3.5-5.1) mmol/L Glucose 110 H (74-99) mg/dL POC Glucose (mg/dL) 120 H (70-110) mg/dL
[2022-11-13 09:52] VITALS: TEMP 98.4
[2022-11-13] MEDS: amLODIPine 2.5 MG TAB PO SCH (11:13)
--- NOTE | 2022-11-13 11:18 | P.PN ---
Subjective Progress Note Date: 11/13/22 Principal diagnosis: CABG. POD #1 off-pump coronary artery bypass grafting 4 with sequential left internal mammary artery to the first diagonal and left anterior descending artery, left radial artery graft to the second obtuse marginal artery, reverse saphenous vein graft to the posterior descending (circumflex), ligation of the left atrial appendage with 35 mm AtriCure clip, endovascular vein harvest, endovascular radial artery harvest. Patient was reevaluated today on 11/10/2022, he was extubated a few hours after he was in the ICU last night. Patient is now on 4 L nasal cannula, he is on insulin 2 units per hour, he is also receiving albumin 4 soft blood pressure, lactated Ringer's at 50 mL per hour. Patient is relatively asymptomatic, does not seem to be in any distress. Pain seems to be reasonably controlledchest x-ray showed mostly postoperative changes ,small left-sided subcutaneous emphysema is noted, left-sided chest tube is noted in place. There is no evidence of pneumothorax.labs are unremarkable WBC count 7.2 hemoglobin is 11.1, basic metabolic profile is normal renal profile is normal Reevaluated today on 11/11/2022, patient remains in the ICU, he is now postoperative day #2 off-pump coronary artery bypass grafting 4 with sequential left internal mammary artery to the first diagonal and left anterior descending artery, left radial artery graft to the second obtuse marginal artery, reverse saphenous vein graft to the posterior descending (circumflex), ligation of the left atrial appendage with 35 mm AtriCure clip, endovascular vein harvest, endovascular radial artery harvest. Patient is doing well today, he is on 4 L nasal cannula, chest x-ray showed minimal interstitial prominence, no evidence of acute process, there is evidence of postoperative changes, patient continues to have right internal jugular Cordis, mediastinal and left pleural chest tubes, and he has a right radial arterial line. Patient is relatively asymptomatic, doing great. He is not requiring any inotropes or any pressors. CBC is relatively normal electrolytes are normal Reevaluated today on 11/12/2022, patient remains in the ICU, he is now postoperative day #3. Patient is on 2 L nasal cannula, does not seem to be in any distress, he is hemodynamically stable, he is in sinus rhythm, not requiring any pressors or any inotropes. Already ambulated multiple times in the hallway without any difficulty. All his lines and catheters have been removed. Continues to have AV epicardial pacemaker wires present. Chest x-ray this morning showed cardiomegaly and small bilateral areas of atelectasis with small right-sided pleural effusion. WBC count is 11.2 hemoglobin 11.6 electrolytes are normal and renal profile is normal Progress note dated 11/13/2022. This is a 62-year-old male postop day #4, status post off-pump bypass grafting 4. The patient is doing relatively well. He is currently on room air. He's not receiving any IV fluids. He is hoping to be discharged home soon. White count 11.4, hemoglobin 12.4, hematocrit 37.8, with a normal platelet count. Sodium 142, potassium 5.2, chlorides 104, CO2 28, BUN 15, and creatinine 0.83. Chest x-ray shows some post surgical changes, and bibasilar atelectasis. Objective - Vital Signs Vital signs: Vital Signs Temp 98.4 F 11/13/22 08:00 Pulse 70 11/13/22 09:31 Resp 18 11/13/22 08:00 BP 108/74 11/13/22 08:00 Pulse Ox 93 L 11/13/22 08:00 FiO2 70 11/10/22 00:00 Intake & Output 11/12/22 11/13/22 11/13/22 18:59 06:59 18:59 Intake Total 300 180 Output Total 350 1800 Balance -50 -1800 180 Weight 76.2 kg Intake: Oral 300 180 Output: Urine 350 1800 Other: Voiding Method Urinal Urinal Urinal ABP, PAP, CO, CI - Last Documented Arterial Blood Pressure 103/52 Pulmonary Artery Pressure 30/6 Cardiac Output 5 Cardiac Index 2.8 - Exam No acute distress, oriented 3. HEENT examination is grossly unremarkable. Mucous membranes are moist. No oral lesions. Neck supple. Full range of motion. No adenopathy thyromegaly or neck vein distention. Cardiovascular examination reveals regular rhythm rate. S1-S2 normal. No S3 or S4. No discernible murmur noted. Heart rate 70 bpm. Lungs reveal clear breath sounds. Breath sounds are equal bilaterally. No adventitious lung sounds including wheezes rhonchi or crackles. Room air saturation is 95%. Abdomen soft bowel sounds are heard. No masses or tenderness. Extremities are intact. No cyanosis clubbing or edema. Skin is without rash or lesion. Neurologic examination is brief but nonfocal. - Labs CBC & Chem 7: 11/13/22 05:06 11/13/22 05:06 Labs: Abnormal Lab Results - Last 24 Hours (Table) 11/12/22 11/12/22 11/13/22 Range/Units 11:35 20:07 05:06 WBC 11.4 H (3.8-10.6) k/uL RBC 4.01 L (4.30-5.90) m/uL Hgb 12.4 L (13.0-17.5) gm/dL Hct 37.8 L (39.0-53.0) % Potassium (3.5-5.1) mmol/L Glucose (74-99) mg/dL POC Glucose (mg/dL) 118 H 124 H (70-110) mg/dL 11/13/22 11/13/22 Range/Units 05:06 05:59 WBC (3.8-10.6) k/uL RBC (4.30-5.90) m/uL Hgb (13.0-17.5) gm/dL Hct (39.0-53.0) % Potassium 5.2 H (3.5-5.1) mmol/L Glucose 110 H (74-99) mg/dL POC Glucose (mg/dL) 120 H (70-110) mg/dL Assessment and Plan Assessment: Coronary artery disease, status post off-pump four-vessel bypass grafting, postop day #4. Routine postoperative ventilator management. Tobacco dependence syndrome. History of CVA, with minimal residual right-sided weakness. Intraoperative atrial fibrillation, resolved. Dyslipidemia. Bibasilar atelectasis. Plan: Plan dated 11/13/2022. The patient's doing very well. He is on room air. He's not receiving any IV fluids. Labs, x-rays, and medications are reviewed. The patient's chest x-ray does show some postoperative changes, and some bibasilar atelectasis. Patient's overall prognosis remains good. We will continue to follow, until the patient is discharged. Time with Patient: Less than 30
[2022-11-13 11:23] LABS: Glucose,Whole Blood 114 mg/dL (70-110)
--- NOTE | 2022-11-13 13:47 | P.PN ---
Subjective Progress Note Date: 11/13/22 This is a 62-year-old male patient with a known history of chronic tobacco dependence, hypertension, hyperlipidemia, CVA with some right-sided weakness right-sided facial droop right forearm numbness residuals. He was having issues with fatigue and chest discomfort and had undergone cardiac catheterization 10/25/2022 and was found to have severe coronary artery disease including a proximal LAD of 50% stenosis, mid LAD 50-60. Stenosis, proximal circumflex of 80% with a 90-100% mid circumflex lesion. He's also had 100% ostial OM1 stenosis and a nondominant RCA 99%. He was recommended coronary artery bypass grafting 11/11. Patient seen and examined. Status post CABG, postop day 2. Sitting upright in the chair. Denies any acute issues overnight. Vital signs stable 11/12. Patient seen and examined. Chest tubes have been removed. Currently using I-S, states he feels much better. 11/13. Patient seen and examined. Not requiring any supplemental oxygen. Not in acute distress. States that he is keen to go home REVIEW OF SYSTEMS: CONSTITUTIONAL: No fever, no malaise,. CARDIOVASCULAR: No chest pain, no palpitations, no syncope. PULMONARY: No shortness of breath, no cough, GASTROINTESTINAL: No diarrhea, no nausea, no vomiting, no abdominal pain. NEUROLOGICAL: No headaches, no weakness, PHYSICAL EXAMINATION: GENERAL: The patient is alert and oriented x3, not in any acute distress. Well developed, well nourished. HEENT: Pupils are round and equally reacting to light. EOMI. No scleral icterus. No conjunctival pallor. Normocephalic, atraumatic. No pharyngeal erythema. No thyromegaly. CARDIOVASCULAR: S1 and S2 present. No murmurs, rubs, or gallops. PULMONARY: Chest is clear to auscultation, no wheezing or crackles. Sternotomy incision seen ABDOMEN: Soft, nontender, nondistended, normoactive bowel sounds. No palpable organomegaly. MUSCULOSKELETAL: No joint swelling or deformity. EXTREMITIES: No cyanosis, clubbing, or pedal edema. NEUROLOGICAL: Gross neurological examination did not reveal any focal deficits. SKIN: No rashes. Assessment and plan Coronary artery disease, status post four-vessel CABG, postoperative day #2 Benign essential hypertension. Tobacco dependence syndrome. History of CVA and minimal residual right-sided weakness Intraoperative atrial fibrillation, presently in sinus rhythm. Dyslipidemia. Monitor vital signs Monitor CBC Monitor CMP Continue aspirin, Plavix, Lipitor Follow-up on cardiac surgery recommendations Critical care following DVT prophylaxis: Objective - Vital Signs Vital signs: Vital Signs Temp 98.3 F 11/13/22 04:00 Pulse 70 11/13/22 09:31 Resp 18 11/13/22 04:00 BP 124/80 11/13/22 04:00 Pulse Ox 92 L 11/13/22 04:00 FiO2 70 11/10/22 00:00 Intake & Output 11/12/22 11/13/22 11/13/22 18:59 06:59 18:59 Intake Total 300 180 Output Total 350 1800 Balance -50 -1800 180 Intake: Oral 300 180 Output: Urine 350 1800 Other: Voiding Method Urinal Urinal ABP, PAP, CO, CI - Last Documented Arterial Blood Pressure 103/52 Pulmonary Artery Pressure 30/6 Cardiac Output 5 Cardiac Index 2.8 - Labs CBC & Chem 7: 11/13/22 05:06 11/13/22 05:06 Labs: Abnormal Lab Results - Last 24 Hours (Table) 11/12/22 11/12/22 11/13/22 Range/Units 11:35 20:07 05:06 WBC 11.4 H (3.8-10.6) k/uL RBC 4.01 L (4.30-5.90) m/uL Hgb 12.4 L (13.0-17.5) gm/dL Hct 37.8 L (39.0-53.0) % Potassium (3.5-5.1) mmol/L Glucose (74-99) mg/dL POC Glucose (mg/dL) 118 H 124 H (70-110) mg/dL 11/13/22 11/13/22 Range/Units 05:06 05:59 WBC (3.8-10.6) k/uL RBC (4.30-5.90) m/uL Hgb (13.0-17.5) gm/dL Hct (39.0-53.0) % Potassium 5.2 H (3.5-5.1) mmol/L Glucose 110 H (74-99) mg/dL POC Glucose (mg/dL) 120 H (70-110) mg/dL
--- NOTE | 2022-11-13 13:50 | P.DS ---
Providers Date of admission: 11/09/22 05:37 Expected date of discharge: 11/13/22 Attending physician: Reggie Nelson Consults: 11/09/22 12:32 Consult Physician Routine Consulting Provider: Gera Haines Consult Reason/Comments: med mgmt Do you want consulting provider notified?: Yes Consult Physician Routine Consulting Provider: Bao Edwards Consult Reason/Comments: Post Framer Consult: post cardiac surgery Do you want consulting provider notified?: Yes Consult Physician Routine Consulting Provider: Rakesh Echeverria Consult Reason/Comments: Marble Cleaner Consult: post cardiac surgery;Najera patient Do you want consulting provider notified?: Yes Primary care physician: Gera Haines [facility] Course: FINAL DIAGNOSIS: 1. Coronary artery disease 2. History of hypertension 3. Hyperlipidemia, treated, cholesterol 223, LDL 159, triglycerides 151 4. History of single episode of syncope with unknown cause 5. Tobacco dependence with recent cessation, preoperative FEV1 77% of predicted 6. Stroke in 2021 is some residual right-sided weakness 7. Family history of premature coronary artery disease with brother having open heart surgery in his 30s 8. Intraoperative atrial fibrillation, currently sinus PRINCIPAL PROCEDURE: 1. Off-pump coronary artery bypass grafting 4 with sequential left internal mammary artery to the first diagonal and left anterior descending artery, left radial artery graft to the second obtuse marginal artery 2. Reverse saphenous vein graft to the posterior descending (circumflex) 3. Ligation of the left atrial appendage with a 35 mm AtriCure clip 4. Endovascular vein harvest and endovascular left radial artery harvest HISTORY OF PRESENT ILLNESS: This is a 62-year-old gentleman who follows outpatient with Dr. Haines for primary care and Dr. Najera for cardiology. He presented with complaints of fatigue and occasional anginal symptomatology. He had a stroke in 2021 and has had some issues with balance as well as lightheadedness and near syncope. He underwent event monitor which was negative for any type of arrhythmia. Subsequently he underwent a stress test which was positive for inferior wall ischemia. He was then recommended to undergo heart catheterization which demonstrated significant three-vessel coronary artery disease. The patient was referred to Dr. Nelson from cardiothoracic surgery. He was recommended to undergo off-pump coronary artery bypass surgery. The usual perioperative course was discussed in detail with the patient and his family, all risks and benefits were explained, all questions were answered, and consent was obtained to proceed with surgery. The patient was scheduled for elective surgery at the earliest possible date. HOSPITAL COURSE: The patient was brought to the hospital on 11/09/22, taken to the preoperative area, prepared in the usual fashion, and subsequently taken to the operating room where Dr. Nelson performed four-vessel off-pump CABG. Upon co mpletion of surgery the patient was transferred to the cardiovascular intensive care unit where he was recovered and monitored hemodynamically. He was extubated, all lines, tubes, and drips were discontinued when appropriate, and he was transferred to [facility] cardiac stepdown unit for further monitoring and rehabilitation. His oxygen was titrated down, he continued to work with physical and occupational therapy, he was tolerating oral diet, his pain was controlled, and he was ready to be discharged to home with [facility] care on postoperative day #4. He received written and verbal instruction regarding his medications, activity restrictions, signs and symptoms requiring physician notification, and follow-up appointments. Patient Condition at Discharge: Stable Plan - Discharge Summary Discharge Rx Participant: Yes New Discharge Prescriptions: New Aspirin 325 mg PO DAILY #30 tab Metoprolol Tartrate [Lopressor] 12.5 mg PO BID #60 tab amLODIPine [Norvasc] 2.5 mg PO DAILY@1200 #30 tab Pantoprazole [Protonix] 40 mg PO AC-BRKFST #30 tab Acetaminophen Tab [Tylenol] 650 mg PO Q4HR PRN tab PRN Reason: Fever And/ Or Pain Amiodarone [Cordarone] 200 mg PO BID #21 tab Sennosides-Docusate Sodium [Senokot-S] 2 each PO HS PRN tab PRN Reason: Constipation Continue Atorvastatin [Lipitor] 80 mg PO HS #30 tab Hydrocodone/Acetaminophen [Hydrocodone/Acetaminophen 7.5-325] 1 tab PO BID PRN PRN Reason: Pain Pregabalin [Lyrica] 225 mg PO BID Clopidogrel [Plavix] 75 mg PO DAILY #30 tab Discontinued Famotidine [Pepcid] 20 mg PO BID #60 tab Aspirin 325 mg PO DAILY Metoprolol Succinate (ER) [Toprol Xl] 12.5 mg PO DAILY Discharge Medication List Pregabalin [Lyrica] 225 mg PO BID 01/01/22 [History] Atorvastatin [Lipitor] 80 mg PO HS #30 tab 01/04/22 [Rx] Clopidogrel [Plavix] 75 mg PO DAILY #30 tab 01/04/22 [Rx] Hydrocodone/Acetaminophen [Hydrocodone/Acetaminophen 7.5-325] 1 tab PO BID PRN 10/23/22 [History] Acetaminophen Tab [Tylenol] 650 mg PO Q4HR PRN tab 11/13/22 [Rx] Amiodarone [Cordarone] 200 mg PO BID #21 tab 11/13/22 [Rx] Aspirin 325 mg PO DAILY #30 tab 11/13/22 [Rx] Metoprolol Tartrate [Lopressor] 12.5 mg PO BID #60 tab 11/13/22 [Rx] Pantoprazole [Protonix] 40 mg PO AC-BRKFST #30 tab 11/13/22 [Rx] Sennosides-Docusate Sodium [Senokot-S] 2 each PO HS PRN tab 11/13/22 [Rx] amLODIPine [Norvasc] 2.5 mg PO DAILY@1200 #30 tab 11/13/22 [Rx] Follow up Appointment(s)/Referral(s): Bao Edwards MD [STAFF PHYSICIAN] - 12/12/22 1:45 pm Tiffani Marie NPC [Nurse Practitioner] - 11/21/22 9:00 am (You will be seen in the surgeon's office behind the hospital in [facility], [address] [place] [address] [address]. Office phone number is ) Rehab [facility] ,Cardiac [NON-STAFF] - 4 Weeks (You will receive a phone call in approximately 4-6 weeks for evaluation for cardiac rehab) Pipo Najera DO [STAFF PHYSICIAN] - 11/21/22 7:45 am Gera Haines MD [Primary Care Provider] - 2 Weeks (Please call for appointment, office was closed 11/13/22) Reggie Nelson MD [STAFF PHYSICIAN] - 12/07/22 2:00 pm [facility], [NON-STAFF] - 1-2 Days (To see patient day after discharge, then 2-3 times per week until patient starts cardiac rehab) Ambulatory/Diagnostic Orders: Complete Blood Count w/diff [LAB.AMB] Time Frame: 3 Days, Location: None Selected Comprehensive Metabolic Panel [LAB.AMB] Time Frame: 3 Days, Location: None Selected Activity/Diet/Wound Care/Special Instructions: DISCHARGE INSTRUCTIONS: 1. No driving for 4 weeks, or until physician gives their ok. 2. The patient should sleep in their own bed, no medical bed needed. 3. Stairs are not an issue. If the bedroom is upstairs, it is advised that the patient go up at night and down in the morning for the first week. Go slowly, using handrail and take 1 step at a time. 4. YARI hose are to be worn for 30 days post surgery or until physician discontinues. 5. Heart hugger is to be worn 100% of the time until physician discontinues.(except when showering) 6. No lifting, pushing, or pulling more than 10 pounds for 12 weeks. The physician will advise of any restriction changes. 7. The patient is expected to continue the prescribed walking program. 8. Continue pain control per as needed orders. 9. Continue with incentive spirometry and splinting/heart hugger until other gunter directed by the physician. 10. Must shower daily using liquid antibacterial soap 11. Routine sternal incision care. No powders, lotions, ointments on incisions. No dressings are necessary on incisions unless they are draining. Dermabond tape is to remain on sternal incision until surgeon follow-up. 12. Please call surgeon/HEALTH INFORMATION CLERK for temp greater than 101 F or purulent drainage from incisions. 13. You should weigh yourself daily, record and bring log with you to follow up appointments. 14. All prescriptions given by surgeon for 30 days. Refills need to be filled through cleaning handyman/primary care physician. 15. A Red armband has been placed on the patient. It should be worn for 30 days post discharge from surgery and will be removed by the cardiac surgeons. If an ER visit is necessary, please make sure the number on the Red armband is called before going to ER. 16. You have been referred to and are expected to begin Cardiac Rehab in approximately 4-6 weeks. 17. Quitting smoking is the most important step you can take to improve your health. For additional information and assistance to quit smoking, please call the [place] tobacco quit line (2-075-MDNN-NOW/ ) or online: https://www.[place].gov/[facility]/oomy-fl-sroolnl/chronicdiseases/tobacco/how-to-qu it-tobacco HOME HEALTH SERVICES TO PROVIDE: RN SKILLED HOME CARE SERVICES FOR POST-OP SURGICAL PATIENTS WITH THE FOLLOWING: Coronary Artery Bypass Surgery (CABG), Mitral Valve Replacement/Repair ( MVR), Aortic Valve Replacement/Repair (AVR) RN TO CONTINUE EDUCATION FROM ``ROAD TO A HEALTH HEART PATIENT EDUCATION MANUAL (GIVEN TO PATIENT IN THE HOSPITAL) MEDICATION RECONCILIATION WITH EDUCATION NEEDED ON FIRST HOME VISIT EMPHASIZE IMPORTANCE OF WEARING BREAST SUPPORT/HEART HUGGER ENCOURAGE USE OF INCENTIVE SPIROMETER 10 X EVERY HOUR WHILE AWAKE ENCOURAGE UTILIZATION OF LOWER EXTREMITY COMPRESSION STOCKINGS/YARI HOSE and ELEVATE LEGS ABOVE LEVEL OF HEART WHILE AT REST. ENCOURAGE AMBULATION 3-5x/day INCREASING TOLERATES, WHILE AVOIDING EXTREMES IN TEMPERATURE FREQUENCY: RN TO OPEN THE PATIENT WITHIN 24 HOURS OF DISCHARGE FROM THE HOSPITAL WITH TELEHEALTH INSTALLED AT [facility], RN TO VISIT 2-3 X A WEEK FOR 4 WEEKS ESTABLISHED BY PATIENT NEEDS. LABORATORY: CBC, CMP TO BE DRAWN ON THE THIRD DAY HOME, (RAN STAT) FAX RESULTS TO [phone]. TELEHEALTH PARAMETERS: WEIGHT: NOTIFY MD OF WEIGHT GAIN OF 2 LBS IN 24 HOURS OR 5 LBS IN ONE WEEK HR: NOTIFY MD OF HR <55 BPM OR HR>100 BPM BP: NOTIFY MD IF BP <90/55 OR BP>140/100 O2 SAT: NOTIFY MD IF PO2<93% ON ROOM AIR SEND TELEHEALTH REPORT TO SENIOR SOFTWARE QA ENGINEER AND CARDIOVASCULAR SURGEON THE FIRST WEEK OF CARE AND THEN BI-WEEKLY. PLEASE ADDITIONALLY COMMUNICATE ANY ABNORMALS AND NEW FINDINGS TO THE SURGEONS OFFICE. Discharge Disposition: HOME WITH HOME HEALTH SERVICES
[2022-11-13 15:02] VITALS: BP 103/64; PULSE 64; RESP 18
[2022-11-13] MEDS ORDERED: AMIODARONE 200 MG TAB PO SCH (21:00)
--- NOTE | 2022-11-16 15:47 | CDI ---
Documentation Clarification Form Date: From: Tracey Jones Phone: [phone] Admit Date: 11/09/2022 05:37:00 AM Patient Name: Khoi Lozada Visit Number: [id number] Discharge Date: 11/13/2022 03:44:00 PM ATTENTION: The Clinical Documentation Specialists (CDI) and [facility] Coding Staff appreciate your assistance in clarifying documentation. Please respond to the clarification below the line at the bottom and electronically sign. The CDI & [facility] Coding staff will review the response and follow-up if needed. Please note: Queries are made part of the Legal Health Record. If you have any questions, please contact the author of this message via ITS. Dr. Reggie Nelson "Atrial Fibrillation" is documented in the Operative Note on 11/09 and patient had an Off Pump Coronary Artery Bypass. Additional clarification is requested regarding the relationship, if any, that exists between the diagnosis and the procedure. Patients Admitting Diagnosis: Coronary artery disease Post-Operative Diagnosis: Coronary artery disease Procedure performed: "Off pump coronary artery bypass grafting 4 with sequential MCPHERSON to first diagonal and LAD, left radial artery graft to second obtuse marginal, saphenous vein graft to posterior descending (circumflex), ligation of left atrial appendage with 35 mm AtriCure clip, endovascular vein harvest, endovascular radial artery harvest." - Per Op Note on 11/09 History/Risk Factors: "62-year-old male patient with a known history of chronic tobacco dependence, hypertension, hyperlipidemia, CVA with some right-sided weakness right-sided facial droop right forearm numbness residuals. He was having issues with fatigue and chest discomfort and had undergone cardiac catheterization 10/25/2022 and was found to have severe coronary artery disease including a proximal LAD of 50% stenosis, mid LAD 50-60." - Per Pulmonology Consult on 11/09 Clinical Indicators: "The patient got an atrial fibrillation during the circumflex graft was now cardioverted. Hemodynamic stability had been been maintained. Patient was given 150 mg bolus of amiodarone." - Per Op note dated 11/09 Treatment: Per Op Note on 11/09 - Cardioverted - 150mg bolus of Amiodarone Consults: none What relationship, if any, exists between the diagnosis of Atrial Fibrillation and the procedure: [ ] Atrial Fibrillation is a complication of surgical procedure [ ] Atrial Fibrillation is an expected outcome of the surgical procedure [ x ] Other please specify ____A fib occurred during the procedure. It is neither a complication nor an expected outcome, but rather an occurrence. [ ] Unable to determine MTDD
--- NOTE | 2022-11-20 13:05 | CDI ---
Documentation Clarification Form Date: 11/20/2022 12:54:00 PM From: Noemy Allred Phone: Admit Date: 11/09/2022 05:37:00 AM Patient Name: Khoi Lozada Visit Number: [id number] Discharge Date: 11/13/2022 03:44:00 PM ATTENTION: The Clinical Documentation Specialists (CDI) and [facility] Coding Staff appreciate your assistance in clarifying documentation. Please respond to the clarification below the line at the bottom and electronically sign. The CDI & [facility] Coding staff will review the response and follow-up if needed. Please note: Queries are made part of the Legal Health Record. If you have any questions, please contact the author of this message via ITS. Dr. Reggie Nelson A/V epicardial pacemaker wires present, connected to generator is documented in the Progress Notes 11/10/22. Additional clarification regarding the procedure is requested. History/Risk factors: 62yo M, CAD s/p CABG, HTN, HLD, Hx syncope, recent Hx smoking, CVA w RT weakness, FHX CAD, Intraop A Fib Pre-Operative Diagnosis: Coronary artery disease Postoperative Diagnosis: Coronary artery disease Clinical Indicators: Pt found have significant circumflex disease Treatment: Offpumpcoronary artery bypass grafting4 with sequential MCPHERSON to first diagonal and LAD, left radial arterygraftto second obtuse marginal, saphenous veingraftto posterior descending (circumflex),ligationof left atrial appendage with 35 mm AtriCure clip, endovascular veinharvest, endovascular radial arteryharvest. Please clarify the following: Presence of epicardial pacemaker [x ] Temporary epicardial pacemaker inserted during CABG [ ] Temporary epicardial pacemaker not inserted CABG [ ] Temporary epicardial pacemaker inserted during (please specify time of insertion): [ ] Other (please specify): (Template Last Revised: July 2020) MTDD
== END 2022-11-13 15:44 | disposition home health service (06) | DRG 166 ==
LOC: 2ORMAIN 05:37 → 2SICU 12:47 → 3SCARD 11-12 17:58
PROVIDERS: ADMIT Thoracic Surgery (Cardiothoracic Vascular Surgery); ATTEND Thoracic Surgery (Cardiothoracic Vascular Surgery)
PROC: 02L70CK Occlusion of Left Atrial Appendage with Extraluminal Device, Open Approach (ICD-10-PCS; 2022-11-09)
PROC: 0210093 Bypass Coronary Artery, One Artery from Coronary Artery with Autologous Venous Tissue, Open Approach (ICD-10-PCS; 2022-11-09)
PROC: 06BQ4ZZ Excision of Left Saphenous Vein, Percutaneous Endoscopic Approach (ICD-10-PCS; 2022-11-09)
PROC: 02110Z9 Bypass Coronary Artery, Two Arteries from Left Internal Mammary, Open Approach (ICD-10-PCS; principal; 2022-11-09 08:00)
PROC: 02HK0JZ Insertion of Pacemaker Lead into Right Ventricle, Open Approach (ICD-10-PCS; principal; 2022-11-09 08:00)
PROC: 02H60JZ Insertion of Pacemaker Lead into Right Atrium, Open Approach (ICD-10-PCS; principal; 2022-11-09 08:00)
PROC: 5A1223Z Performance of Cardiac Pacing, Continuous (ICD-10-PCS; principal; 2022-11-09 08:00)
PROC: 02100A3 Bypass Coronary Artery, One Artery from Coronary Artery with Autologous Arterial Tissue, Open Approach (ICD-10-PCS; 2022-11-09 08:00)
PROC: 03BC4ZZ Excision of Left Radial Artery, Percutaneous Endoscopic Approach (ICD-10-PCS; 2022-11-09 08:00)
DX: I25.118 Atherosclerotic heart disease of native coronary artery with other forms of angina pectoris (principal); T79.7XXA Traumatic subcutaneous emphysema, initial encounter; I69.351 Hemiplegia and hemiparesis following cerebral infarction affecting right dominant side; I11.9 Hypertensive heart disease without heart failure; I95.9 Hypotension, unspecified; J44.9 Chronic obstructive pulmonary disease, unspecified; I69.392 Facial weakness following cerebral infarction; I69.398 Other sequelae of cerebral infarction; M51.26 Other intervertebral disc displacement, lumbar region; E78.5 Hyperlipidemia, unspecified; I48.91 Unspecified atrial fibrillation; Y83.2 Surgical operation with anastomosis, bypass or graft as the cause of abnormal reaction of the patient, or of later complication, without mention of misadventure at the time of the procedure; R00.1 Bradycardia, unspecified; Z87.891 Personal history of nicotine dependence; Z79.82 Long term (current) use of aspirin; Z79.02 Long term (current) use of antithrombotics/antiplatelets; Z79.899 Other long term (current) drug therapy; Z82.49 Family history of ischemic heart disease and other diseases of the circulatory system
CPT/HCPCS: 71045; 71046; 80048; 80053; 82330; 82805; 83735; 84132; 85025; 85027; 85610; 85730; 86850; 86891; 86900; 86901; 86920; 94002; 94640; 94760

== ENCOUNTER 2023-01-16 08:57 | Day surgery (SDC) | payer OTHER ==
[~2023-01-16 08:57] MED LIST changes: -ALBUMIN HUMAN 25% 50 ML IV ONE; -ALBUMIN HUMAN 5% 500 ML IVPB ONE; -ASPIRIN 325 MG TAB PO ONE; -ATORVASTATIN 10 MG TAB PO ONE; -CALCIUM CHLORIDE 100 MG/ML 10 ML SYRINGE IV ONE; -CARDIOPLEGIC SOLN (K+ 16 MEQ/L 1,000 ML with SODIUM BICARB (1 MEQ/ML) 20 ML, LIDOCAINE ... PERFUSION ONE; -CHLORHEXIDINE GLUCONATE 15 ML CUP MUCOUS MEM ONE; -CLEVIDIPINE BUTYRATE 25 MG in EMPTY BAG 1 BAG IV ONE; -DILTIAZEM 125 MG in SODIUM CHLORIDE 0.9% 100 ML IV ONE; -HEPARIN SODIUM 1,000 UN/ML (10ML VL) IV ONE; -HEPARIN SODIUM,PORCINE 5,000 UNIT in SODIUM CHLORIDE 0.9% 500 ML 500 ML IV ONE; -INSULIN REGULAR 100 UNIT in SODIUM CHLORIDE 0.9% 100 ML IV ONE; -LACTATED RINGERS 1,000 ML IV ONE; -MAGNESIUM SULFATE 16.24 MEQ in EMPTY SYRINGE 1 SYR IV ONE; -MANNITOL 25% 12.5 GM/50 ML VIAL IV ONE; -METOPROLOL TARTRATE 12.5 MG TAB PO ONE; -NITROGLYCERIN SL TABS 0.4 MG TAB SUBLINGUAL ONE; -NITROGLYCERIN-D5W PMX 25 MG/250 ML BTL IV ONE; -NITROGLYCERIN-D5W PMX 50 MG in DEXTROSE/WATER 1 250ML.BAG IV ONE; -NOREPINEPHRINE 4 MG in SODIUM CHLORIDE 0.9% 250 ML IV ONE; -PAPAVERINE 360 MG in SODIUM CHLORIDE 0.9% 90 ML IV ONE; -PHENYLEPHRINE 10 MG/ML VIAL IV ONE; -PHENYLEPHRINE 40 MG in SODIUM CHLORIDE 0.9% 250 ML IV ONE; -PROTAMINE SULFATE 10 MG/ML 25 ML VIAL IV ONE; -PROTAMINE SULFATE 250 MG in EMPTY BAG 1 BAG IV ONE; -SODIUM BICARB 8.4% 50 ML SYR (1 MEQ/ML) IV ONE; -SODIUM CHLORIDE 0.9% 1,000 ML IV ONE; +SODIUM CHLORIDE 0.9% 1,000 ML IV SCH; -TRANEXAMIC ACID 2,000 MG in SODIUM CHLORIDE 0.9% 80 ML IV ONE; -ceFAZolin 1,000 MG in SODIUM CHLORIDE 0.9% IRRIGATIO 1,000 ML IRRIGATION ONE; -propofoL 1,000 MG/100 ML VIAL IV ONE
[2023-01-16] MEDS ORDERED: SODIUM CHLORIDE 0.9% 500 ML 500 ML IV ONE (09:13)
[2023-01-16 09:25] VITALS: RESP 16; TEMP 97.8
[2023-01-16] MEDS ORDERED: LIDOCAINE 1% INJ 10MG/ML (20 ML MDV) SQ ONE (11:21)
[2023-01-16] MEDS ORDERED: fentaNYL (PF) 50 MCG/ML 2 ML AMP IVP ONE (11:22)
[2023-01-16] MEDS ORDERED: MIDAZOLAM 2 MG/2 ML VIAL IVP ONE (11:22)
[2023-01-16] MEDS ORDERED: ceFAZolin 1,000 MG VIAL IVPB ONE (11:32)
[2023-01-16 12:22] VITALS: BP 102/62; PULSE 63
--- NOTE | 2023-01-16 16:42 | P.PCN ---
Description of Procedure: Procedure: Insertion of Linq loop recorder Indication: Cryptogenic stroke CONSENT:I have discussed the risks, benefits and alternative therapies for the above-mentioned procedure. The patient has indicated understanding and acceptance of the risks and procedures discussed. PROCEDURE: Patient was brought to the catheterization lab in a fasting state. Patient was prepped and draped in the usual fashion. 1% lidocaine was used to anesthetize the area of the left third intercostal space. Using the loop recorder incision device, a small 0.5 cm incision was made in the left 3rd intercostal space. Next the Linq loop recorder was deployed in the 3rd intercostal space subcutaneously using the insertion tool. Thresholds were ch ecked and were excellent at []V. Next the incision was closed using Dermabond. Steristrips were placed over the incision and the procedure was completed. The patient tolerated the procedure well. The patient was transported to the post cath holding area in stable condition. Linq loop recorder serial number: [id number]
== END 2023-01-16 12:49 | disposition home or self-care (01) ==
LOC: CATHEP 08:57
PROVIDERS: ATTEND Internal Medicine
DX: I63.9 Cerebral infarction, unspecified (principal); I25.10 Atherosclerotic heart disease of native coronary artery without angina pectoris; I10 Essential (primary) hypertension; E78.2 Mixed hyperlipidemia; F17.210 Nicotine dependence, cigarettes, uncomplicated; Z79.82 Long term (current) use of aspirin; Z79.891 Long term (current) use of opiate analgesic; Z79.01 Long term (current) use of anticoagulants; Z79.899 Other long term (current) drug therapy; Z86.73 Personal history of transient ischemic attack (TIA), and cerebral infarction without residual deficits; Z95.1 Presence of aortocoronary bypass graft; Z82.49 Family history of ischemic heart disease and other diseases of the circulatory system
CPT/HCPCS: 33285; J2250; J0690; J2001; J3010

== ENCOUNTER → 2023-02-10 | Outpatient (CLI) | payer OTHER ==
[2023-02-10 18:36] LABS: ALT 20 U/L (10-49); AST 22 U/L (14-35); Chol/HDL Ratio 5.15 Ratio; LDL Cholesterol,Calculated 90.5 mg/dL (0.0-131.0)
== END | disposition home or self-care (01) ==
LOC: LABWHC1 08:43
PROVIDERS: ATTEND Internal Medicine
DX: E78.2 Mixed hyperlipidemia (principal)
CPT/HCPCS: 36415; 80061; 84450; 84460

== ENCOUNTER → 2023-07-07 | Outpatient (CLI) | payer OTHER ==
[2023-07-07 22:23] LABS: ALT 26 U/L (10-49); AST 26 U/L (14-35); LDL Cholesterol,Calculated 121.1 mg/dL (0.0-131.0)
== END | disposition home or self-care (01) ==
LOC: LABWHC1 10:05
PROVIDERS: ATTEND Nurse Practitioner Acute Care
DX: E78.2 Mixed hyperlipidemia (principal)
CPT/HCPCS: 36415; 80061; 84450; 84460

== ENCOUNTER → 2023-10-24 | Outpatient (CLI) | payer OTHER ==
[2023-10-24 20:59] LABS: ALT 24 U/L (10-49); AST 25 U/L (14-35); Chol/HDL Ratio 2.34 Ratio; LDL Cholesterol,Calculated 40.8 mg/dL (0.0-131.0)
== END | disposition home or self-care (01) ==
LOC: LABWHC1 10:53
PROVIDERS: ATTEND Nurse Practitioner Acute Care
DX: E78.2 Mixed hyperlipidemia (principal)
CPT/HCPCS: 36415; 80061; 84450; 84460